=== PATIENT | male | born 1975 | race Caucasian/White ===

== ENCOUNTER 2016-07-15 02:41 | Observation (INO) | payer OTHER ==
[2016-07-15 02:52] VITALS: TEMP 98.1
[2016-07-15] MEDS ORDERED: NITROGLYCERIN SL TABS 0.4 MG TAB SUBLINGUAL STA (03:12)
[2016-07-15] MEDS ORDERED: ASPIRIN 81 MG CHEW PO STA (03:12)
--- NOTE | 2016-07-15 03:14 | ED ---
General Adult HPI - General Source: patient, RN notes reviewed Mode of arrival: ambulatory Limitations: no limitations <Demi Louie - Last Filed: 07/15/16 05:14> <Geovany Reeder - Last Filed: 07/15/16 05:34> - General Chief complaint: Upper Respiratory Infection Stated complaint: migraine, cough, heather, ent Time Seen by Provider: 07/15/16 03:02 - History of Present Illness Initial comments: Patient is a 41-year-old male presenting to the emergency room with chief complaint of upper respiratory symptoms including chest discomfort, headache, sore throat, and cough for approximately one week. Patient reports that he currently has a heavy numbness to his chest pain. He denies any pain radiating down the arms or in the shoulders. He denies any numbness and tingling to the extremities. Patient denies any diaphoresis or nausea. Patient reports he was seen in urgent care clinic and was given a chest x-ray which was reviewed to be normal and was placed on steroids and cough medicine. Patient was off work for the past 2 days due to these upper respiratory symptoms and when he returned to work today he was unable to go walk long distances because he has had this continuous chest pain and shortness of breath. She reports that the chest pain is worse with coughing. He states that the cough has been nonproductive. He states that he has not taken any decongestants. He reports his only taken Motrin and Tylenol for pain as well as the prescribed cough medicine and steroids. He states he is a nonsmoker. He does have a positive family history for heart disease. He does report he has high blood pressure but denies any diabetes. He states that he has been worked up in the past for coronary artery disease and had a negative stress test. He does not know exactly when this was completed. Patient denies any recent back pain, abdominal pain, nausea vomiting , numbness or tingling, dysuria or hematuria, constipation or diarrhea, headaches or visual changes, or any other current symptoms (Demi Louie) - Related Data Home Medications Medication Instructions Recorded Confirmed Cetirizine HCl [Zyrtec] 10 mg PO DAILY 05/20/14 07/15/16 QUEtiapine FUMARATE [SEROquel] 300 mg PO HS 05/20/14 07/15/16 Divalproex ER [Depakote ER] 1,500 mg PO HS 03/15/16 07/15/16 Lisinopril-Hctz 20-12.5 mg 1 tab PO BID 03/15/16 07/15/16 [Zestoretic 20-12.5] Losartan/Hydrochlorothiazide 1 tab PO DAILY 03/15/16 07/15/16 [Hyzaar 100-25 Tablet] Metoprolol Succinate [Toprol XL] 50 mg PO DAILY 03/15/16 07/15/16 amLODIPine [Norvasc] 5 mg PO DAILY 03/15/16 07/15/16 Allergies Allergy/AdvReac Type Severity Reaction Status Date / Time hydromorphone [From Dilaudid] AdvReac Nausea & Verified 07/15/16 02:53 Vomiting Review of Systems ROS Other: All systems not noted in ROS Statement are negative. <Demi Louie - Last Filed: 07/15/16 05:14> ROS Other: All systems not noted in ROS Statement are negative. <Geovany Reeder - Last Filed: 07/15/16 05:34> ROS Statement: Those systems with pertinent positive or pertinent negative responses have been documented in the HPI. Past Medical History Past Medical History: Coronary Artery Disease (CAD), Hypertension History of Any Multi-Drug Resistant Organisms: None Reported Past Surgical History: Heart Catheterization Past Psychological History: Anxiety, Depression Smoking Status: Never smoker Past Alcohol Use History: Rare Past Drug Use History: None Reported <Demi Louie - Last Filed: 07/15/16 05:14> General Exam Limitations: no limitations General appearance: alert, in no apparent distress Head exam: Present: atraumatic, normocephalic, normal inspection Eye exam: Present: normal appearance, PERRL, EOMI. Absent: scleral icterus, conjunctival injection, periorbital swelling ENT exam: Present: normal exam, mucous membranes moist Neck exam: Present: normal inspection. Absent: tenderness, meningismus, lymphadenopathy Respiratory exam: Present: normal lung sounds bilaterally. Absent: respiratory distress, wheezes, rales, rhonchi, stridor Cardiovascular Exam: Present: regular rate, normal rhythm, normal heart sounds. Absent: systolic murmur, diastolic murmur, rubs, gallop, clicks GI/Abdominal exam: Present: soft, normal bowel sounds. Absent: distended, tenderness, guarding, rebound, rigid Extremities exam: Present: normal inspection, full ROM, normal capillary refill. Absent: tenderness, pedal edema, joint swelling, calf tenderness Back exam: Present: normal inspection Neurological exam: Present: alert, oriented X3, CN II-XII intact Psychiatric exam: Present: normal affect, normal mood Skin exam: Present: warm, dry, intact, normal color. Absent: rash <Demi Louie - Last Filed: 07/15/16 05:14> <Geovany Reeder - Last Filed: 07/15/16 05:34> - General Exam Comments Initial Comments: Patient is a ill appearing 41-year-old male. He does appear to be in moderate discomfort. (Demi Louie) EKG Findings - EKG Comments: EKG Findings:: Patient's EKG shows normal sinus rhythm. Ventricular rate 93 bpm.. Interval 140 ms. Frustration a 6 seconds. QT/QTc is 364/452 ms. No evidence of ST elevation or T-wave inversion. No evidence of ST depression. No evidence of atrial or ventricular arrhythmias. There is no EKG to compare in his history. <Demi Louie - Last Filed: 07/15/16 05:14> Medical Decision Making - Lab Data Result diagrams: 07/15/16 03:15 07/15/16 03:15 <Demi Louie - Last Filed: 07/15/16 05:14> - Lab Data Result diagrams: 07/15/16 03:15 07/15/16 03:15 <Geovany Reeder - Last Filed: 07/15/16 05:34> - Medical Decision Making Patient is a 41-year-old male with chief complaint of one week of chest pain, cough, sinus congestion and sore throat. Patient reports that the chest pain feels like a heaviness. He also reports these been short of breath and has been worse over the past day. Patient was given IV fluids and initial lab work was obtained including cardiac enzymes. Normal initial EKG was reviewed to be normal. Patient does have leukocytosis of 15.6. Patient was given by mouth nitro and aspirin given the chest pain. Patient is a nonsmoker but does have a family history of heart disease. At 4 AM care of patient was transferred over to Dr. Reeder. (Demi Louie) Patient's chest x-ray showed no acute abnormality. Patient stated the nitroglycerin seemed to help with his chest discomfort. Patient's white count was elevated but was probably secondary to steroid she's been using which she got at a urgent care. I spoke with Dr. Orozco admitted the patient I consult cardiology (Geovany Reeder) - Lab Data Lab Results 07/15/16 07/15/16 07/15/16 Range/Units 03:15 03:15 03:15 WBC 15.7 H (3.8-10.6) k/uL RBC 5.04 (4.30-5.90) m/uL Hgb 14.7 (13.0-17.5) gm/dL Hct 43.1 (39.0-53.0) % MCV 85.5 (80.0-100.0) fL MCH 29.1 (25.0-35.0) pg MCHC 34.0 (31.0-37.0) g/dL RDW 13.5 (11.5-15.5) % Plt Count 260 (150-450) k/uL Neutrophils % 81 % Lymphocytes % 13 % Monocytes % 5 % Eosinophils % 1 % Basophils % 0 % Neutrophils # 12.7 H (1.3-7.7) k/uL Lymphocytes # 2.0 (1.0-4.8) k/uL Monocytes # 0.7 (0-1.0) k/uL Eosinophils # 0.1 (0-0.7) k/uL Basophils # 0.0 (0-0.2) k/uL PT (9.0-12.0) sec INR (<1.1) APTT (22.0-30.0) sec Sodium 144 (137-145) mmol/L Potassium 3.7 (3.5-5.1) mmol/L Chloride 103 (98-107) mmol/L Carbon Dioxide 29 (22-30) mmol/L Anion Gap 12 mmol/L BUN 25 H (9-20) mg/dL Creatinine 0.89 (0.66-1.25) mg/dL Est GFR (MDRD) Af Amer >60 (>60 ml/min/1.73 sqM) Est GFR (MDRD) Non-Af >60 (>60 ml/min/1.73 sqM) Glucose 158 H (74-99) mg/dL Calcium 9.3 (8.4-10.2) mg/dL Magnesium 2.0 (1.6-2.3) mg/dL Total Bilirubin 0.4 (0.2-1.3) mg/dL AST 32 (17-59) U/L ALT 52 (21-72) U/L Alkaline Phosphatase 81 (38-126) U/L Total Creatine Kinase 192 H (55-170) U/L CK-MB (CK-2) 3.8 H* (0.0-2.4) ng/mL CK-MB (CK-2) Rel Index 2.0 Troponin I <0.012 (0.000-0.034) ng/mL Total Protein 7.3 (6.3-8.2) g/dL Albumin 4.0 (3.5-5.0) g/dL 07/15/16 Range/Units 03:15 WBC (3.8-10.6) k/uL RBC (4.30-5.90) m/uL Hgb (13.0-17.5) gm/dL Hct (39.0-53.0) % MCV (80.0-100.0) fL MCH (25.0-35.0) pg MCHC (31.0-37.0) g/dL RDW (11.5-15.5) % Plt Count (150-450) k/uL Neutrophils % % Lymphocytes % % Monocytes % % Eosinophils % % Basophils % % Neutrophils # (1.3-7.7) k/uL Lymphocytes # (1.0-4.8) k/uL Monocytes # (0-1.0) k/uL Eosinophils # (0-0.7) k/uL Basophils # (0-0.2) k/uL PT 10.6 (9.0-12.0) sec INR 1.1 (<1.1) APTT 27.1 (22.0-30.0) sec Sodium (137-145) mmol/L Potassium (3.5-5.1) mmol/L Chloride (98-107) mmol/L Carbon Dioxide (22-30) mmol/L Anion Gap mmol/L BUN (9-20) mg/dL Creatinine (0.66-1.25) mg/dL Est GFR (MDRD) Af Amer (>60 ml/min/1.73 sqM) Est GFR (MDRD) Non-Af (>60 ml/min/1.73 sqM) Glucose (74-99) mg/dL Calcium (8.4-10.2) mg/dL Magnesium (1.6-2.3) mg/dL Total Bilirubin (0.2-1.3) mg/dL AST (17-59) U/L ALT (21-72) U/L Alkaline Phosphatase (38-126) U/L Total Creatine Kinase (55-170) U/L CK-MB (CK-2) (0.0-2.4) ng/mL CK-MB (CK-2) Rel Index Troponin I (0.000-0.034) ng/mL Total Protein (6.3-8.2) g/dL Albumin (3.5-5.0) g/dL Disposition <Demi Louie - Last Filed: 07/15/16 05:14> Time of Disposition: 05:34 <Geovany Reeder - Last Filed: 07/15/16 05:34> Clinical Impression: Chest pain Disposition: ADMITTED IP TO THIS HOSP
[2016-07-15 03:32] LABS: Basophils % (A) 0 %; CH 29.5; CHCM 34.7; Eosinophils # (A) 0.1 k/uL (0-0.7); Eosinophils % (A) 1 %; HCT 43.1 % (39.0-53.0); HDW 3.31; HGB 14.7 gm/dL (13.0-17.5); Luc # (Auto) 0.12; Luc % (Auto) 1; Lymphocytes % (A) 13 %; MCH 29.1 pg (25.0-35.0); MCV 85.5 fL (80.0-100.0); Mean Platelet Volume 7.2; Monocytes # (A) 0.7 k/uL (0-1.0); Monocytes % (A) 5 %; Neutrophils # (A) 12.7 k/uL (1.3-7.7); Neutrophils % (A) 81 %; RBC 5.04 m/uL (4.30-5.90); RDW 13.5 % (11.5-15.5); WBC 15.7 k/uL (3.8-10.6); WBC (Perox) 15.99
[2016-07-15 03:37] LABS: ALT 52 U/L (21-72); AST 32 U/L (17-59); Alkaline Phosphatase 81 U/L (38-126); Anion Gap 12 mmol/L; Blood Urea Nitrogen 25 mg/dL (9-20); Calcium 9.3 mg/dL (8.4-10.2); Carbon Dioxide 29 mmol/L (22-30); Chloride 103 mmol/L (98-107); Glucose 158 mg/dL (74-99); Non-African American GFR(MDRD) >60 (>60 ml/min/1.73 sqM); Sodium 144 mmol/L (137-145); Total Bilirubin 0.4 mg/dL (0.2-1.3); Total Protein 7.3 g/dL (6.3-8.2)
[2016-07-15 03:42] LABS: Potassium 3.7 mmol/L (3.5-5.1)
[2016-07-15 03:45] LABS: INR 1.1 (<1.1); Partial Thromboplastin Time 27.1 sec (22.0-30.0); Prothrombin Time 10.6 sec (9.0-12.0)
[2016-07-15 03:52] LABS: Creatine Kinase 192 U/L (55-170)
[2016-07-15] MEDS ORDERED: KETOROLAC 30 MG/ML 1 ML VIAL IVP STA (03:53)
[2016-07-15 04:05] LABS: Troponin I <0.012 ng/mL (0.000-0.034)
[2016-07-15 04:09] LABS: Creatine Kinase MB 3.8 ng/mL (0.0-2.4)
--- NOTE | 2016-07-15 05:11 | XR ---
EXAMINATION TYPE: XR chest 2V DATE OF EXAM: 07/15/2016 4:10 AM COMPARISON: 11/07/2011 HISTORY: History of CAD heart catheterization, asthma and chest pain TECHNIQUE: Frontal and lateral views of the chest are obtained. FINDINGS: There is no focal air space opacity, pleural effusion, or pneumothorax seen. The cardiac silhouette size is within normal limits. The osseous structures are intact. IMPRESSION: No acute cardiopulmonary process. No significant interval change.
[2016-07-15] MEDS ORDERED: IPRATROPIUM-ALBUTEROL 3 ML NEB INHALATION STA (05:33)
[2016-07-15] MEDS ORDERED: NITROGLYCERIN SL TABS 0.4 MG TAB SUBLINGUAL PRN (05:34)
[2016-07-15 06:18] VITALS: BMI 45.1
[2016-07-15 06:22] VITALS: RESP 18
[2016-07-15] MEDS: SODIUM CHLORIDE 0.9% 1,000 ML IV SCH ×2 (06:22→15:30)
[2016-07-15] MEDS: NITROGLYCERIN OINT 1 INCH/GM PACKET TOPICAL SCH ×2 (06:23→11:30)
[2016-07-15] MEDS ORDERED: MORPHINE SULFATE 2 MG/ML SYRINGE IVP PRN (07:05)
[2016-07-15] MEDS ORDERED: HYDROcodone/APAP 5-325MG 1 EACH TAB PO PRN (07:05)
[2016-07-15] MEDS ORDERED: METOPROLOL SUCCINATE (ER) 50 MG TAB.ER.24H PO SCH (09:00)
[2016-07-15] MEDS ORDERED: LORATADINE 10 MG TAB PO SCH (09:00)
[2016-07-15] MEDS ORDERED: amLODIPine 5 MG TAB PO SCH (09:00)
[2016-07-15] MEDS ORDERED: LISINOPRIL-HCTZ 20-12.5 MG 1 EACH TAB PO SCH (09:00)
[2016-07-15] MEDS ORDERED: LOSARTAN-HCTZ 50-12.5 MG 1 EACH TAB PO SCH ×2 (09:00)
--- NOTE | 2016-07-15 09:54 | P.CRDCN ---
History of Present Illness Consult date: 07/15/16 Chief complaint: Chest pain History of present illness: This is a pleasant 41-year-old gentleman with obesity, borderline diabetes, hypertension, presented to the emergency room complaining of chest discomfort. He has been struggling with an upper respiratory symptoms and cough for the last several weeks. He presented the urgent care twice and he was started on medications without any improvement. Then he was referred to go to the emergency room. He describes dry cough without any fever or chills. Beside that he describes chest discomfort, on the upper part of the chest, as a sharp kind of discomfort , without any radiation to the arm or neck or shoulders and without any associated symptoms. The chest x-ray showed chronic changes. The EKG showed sinus mechanism without any significant changes. He underwent one set of cardiac enzymes came to be unremarkable. We are still waiting for the second set of serial cardiac enzymes. Please note that the patient underwent heart catheterization about 6 years ago and that was unremarkable. Past Medical History Past Medical History: Coronary Artery Disease (CAD), Diabetes Mellitus, GERD/ Reflux, Hyperlipidemia, Hypertension, Osteoarthritis (OA), Pneumonia, Sleep Apnea/CPAP/BIPAP Additional Past Medical History / Comment(s): Carpel tunnel bilat History of Any Multi-Drug Resistant Organisms: None Reported Past Surgical History: Heart Catheterization, Tonsillectomy Additional Past Surgical History / Comment(s): cardiac cath approx. 2012, stress test x2, colonoscopy with EGD Past Anesthesia/Blood Transfusion Reactions: No Reported Reaction Past Psychological History: Anxiety, Depression Smoking Status: Never smoker Past Alcohol Use History: Rare Past Drug Use History: None Reported - Past Family History Mother Family Medical History: Cancer Additional Family Medical History / Comment(s): lymphoma Father Family Medical History: Hypertension Medications and Allergies Home Medications Medication Instructions Recorded Confirmed Type Cetirizine HCl [Zyrtec] 10 mg PO DAILY 05/20/14 07/15/16 History QUEtiapine FUMARATE [SEROquel] 300 mg PO HS 05/20/14 07/15/16 History Divalproex ER [Depakote ER] 1,500 mg PO HS 03/15/16 07/15/16 History Lisinopril-Hctz 20-12.5 mg 1 tab PO BID 03/15/16 07/15/16 History [Zestoretic 20-12.5] Losartan/Hydrochlorothiazide 1 tab PO DAILY 03/15/16 07/15/16 History [Hyzaar 100-25 Tablet] Metoprolol Succinate [Toprol XL] 50 mg PO DAILY 03/15/16 07/15/16 History amLODIPine [Norvasc] 5 mg PO DAILY 03/15/16 07/15/16 History Allergies Allergy/AdvReac Type Severity Reaction Status Date / Time ketorolac [From Toradol] AdvReac Nausea Verified 07/15/16 06:01 Physical Exam Vitals: Vital Signs Pulse Resp BP Pulse Ox 07/15/16 06:15 18 07/15/16 05:46 97 16 134/77 97 07/15/16 05:43 108 H 07/15/16 05:37 102 H Intake and Output 07/14/16 07/15/16 07/15/16 22:59 06:59 14:59 Other: Voiding Method Toilet # Voids 1 Weight 151.046 kg - Constitutional General appearance: no acute distress - Respiratory Respiratory: bilateral: CTA - Cardiovascular Rhythm: regular Heart sounds: normal: S1, S2 Results 07/15/16 03:15 07/15/16 03:15 Current Medications Generic Name Dose Route Start Last Admin Trade Name Freq PRN Reason Stop Dose Admin Acetaminophen/Hydrocodone Bitart 1 each 07/15/16 07:05 [place] 5-325 PO Q4HR PRN Pain Amlodipine Besylate 5 mg 07/15/16 09:00 Norvasc PO DAILY KENNETH Aspirin 325 mg 07/16/16 09:00 Aspirin PO DAILY [facility] Divalproex Sodium 1,500 mg 07/15/16 21:00 Depakote Er PO HS [facility] Lisinopril/HCTZ 1 each 07/15/16 09:00 Zestoretic 20-12.5 PO BID KENNETH Sodium Chloride 1,000 mls @ 100 mls/hr 07/15/16 04:00 07/15/16 06:22 Saline 0.9% IV Not Given .Q10H KENNETH Loratadine 10 mg 07/15/16 09:00 Claritin PO DAILY [facility]NET[facility] Metoprolol Succinate 50 mg 07/15/16 09:00 Toprol Xl PO DAILY [facility]ENNET[facility] Morphine Sulfate 2 mg 07/15/16 07:05 07/15/16 07:29 Morphine Sulfate (Inj) IVP 2 mg Q4H PRN Administration Pain/Discomfort Nitroglycerin 1 inch 07/15/16 06:00 07/15/16 06:23 Nitro-Bid Oint TOPICAL Not Given Q6HR KENNETH Nitroglycerin 0.4 mg 07/15/16 05:34 Nitrostat SUBLINGUAL Q5M PRN Chest Pain Quetiapine Fumarate 300 mg 07/15/16 21:00 Seroquel PO HS [facility]ENNET[facility] Intake and Output 07/14/16 07/15/16 07/15/16 22:59 06:59 14:59 Other: Voiding Method Toilet # Voids 1 Weight 151.046 kg Assessment and Plan Plan: Assessment #1 dry cough #2 atypical chest discomfort #3 obesity #4 borderline diabetes #5 hypertension Plan #1 we'll wait for the second set of serial cardiac enzymes #2 meanwhile I'll get the patient up and around #3 if the second set of enzymes came in to be unremarkable the patient need to have a stress test either as inpatient or outpatient #4 we'll continue following up with him
[2016-07-15 11:04] VITALS: BP 144/96; PULSE 85
[2016-07-15 11:18] LABS: Creatine Kinase 140 U/L (55-170)
[2016-07-15 11:23] LABS: Hemoglobin A1C 5.5 % (4.2-6.1)
[2016-07-15 11:32] LABS: Troponin I <0.012 ng/mL (0.000-0.034)
[2016-07-15 11:42] LABS: Creatine Kinase MB 2.8 ng/mL (0.0-2.4)
[2016-07-15] MEDS ORDERED: QUEtiapine 100 MG TAB PO SCH (21:00)
[2016-07-15] MEDS ORDERED: DIVALPROEX ER 500 MG TAB.ER.24H PO SCH (21:00)
[2016-07-16] MEDS ORDERED: ASPIRIN 325 MG TAB PO SCH (09:00)
--- NOTE | 2016-07-16 11:13 | HP ---
DATE OF ADMISSION: 07/15/2016 HISTORY AND PHYSICAL/DISCHARGE SUMMARY: Patient is a 41 -year-old obese gentleman who came in through the Emergency Room Department with complaints of chest discomfort on the left side of the chest, constant chest pain about 7 by 10 in severity and the patient has URI like symptoms with coughing, has a dry cough. Patient was seen in urgent care. Gave him antibiotics which he does not take ( ) but appears to be azithromycin. His symptoms of cough ( ) at this point of time ( ) at this point of time, the patient appears to have ( ), chest pain, nonpleuritic in nature, not associated with food. Denied any diaphoresis. Denied any lightheadedness. Chest pain is constant. The patient was evaluated by radiology. ( ) sets of Troponin ( ) were obtained. ( ) essentially negative. The patient is cleared for discharged. The patient will be discharged today. Because of risk factors, the patient was requested to come back for an outpatient stress test. Chest x-ray did not show any pneumonic process. Patient denied any had flulike symptoms or fever. REVIEW OF SYSTEMS: CONSTITUTIONAL: No fever, no malaise, no fatigue. HEENT: No recent visual problems or hearing problems. Denied any sore throat. CARDIOVASCULAR: As mentioned earlier. PULMONARY: As mentioned earlier. GASTROINTESTINAL: No diarrhea, no nausea, no vomiting, no abdominal pain. Normoactive bowel sounds. NEUROLOGICAL: No headaches, no weakness, no numbness. HEMATOLOGICAL: Denies any bleeding or petechiae. GENITOURINARY: Denies any burning micturition, frequency, or urgency. MUSCULOSKELETAL/RHEUMATOLOGICAL: Denies any joint pain, swelling, or any muscle pain. ENDOCRINE: Denies any polyuria or polydipsia. The rest of the 14 point review of systems is negative. Past medical history is coronary artery disease, diabetes mellitus , gastroesophageal reflux disease, hypertension, osteoarthritis, pneumonia, sleep apnea, uses CPAP machine. Cardiac catheterization in the past. ( ). Anxiety, depression. SOCIAL HISTORY: Denies any smoking, alcohol abuse or any drug. FAMILY HISTORY: Mother had lymphoma and father has hypertension. Home medications include: 1. ( ). 2. Seroquel. 3. Depakote. 4. Lisinopril. 5. Hydrochlorothiazide. 6. Metoprolol. 7. Amlodipine. ALLERGIES: ( ). PHYSICAL EXAMINATION: VITAL SIGNS: Temperature afebrile. Pulse of 97, respiratory rate 18. Blood pressure is 134/77, saturating at 97% on room air. GENERAL: The patient is alert and oriented x3, not in any acute distress. Well developed, well nourished. HEENT: Pupils are round and equally reacting to light. EOMI. No scleral icterus. No conjunctival pallor. Normocephalic, atraumatic. No pharyngeal erythema. No thyromegaly. CARDIOVASCULAR: S1 and S2 present. No murmurs, rubs, or gallops. PULMONARY: Chest is clear to auscultation, no wheezing or crackles. ABDOMEN: Soft, nontender, nondistended, normoactive bowel sounds. No palpable organomegaly. MUSCULOSKELETAL: No joint swelling or deformity. EXTREMITIES: No cyanosis, clubbing, or pedal edema. NEUROLOGICAL: Gross neurological examination did not reveal any focal deficits. SKIN: No rashes. LABORATORY DATA: CBC and BMP are abnormal for mildly elevated BUN of 25. EKG, troponins as mentioned above. Chest x-ray as mentioned earlier. ASSESSMENT AND PLAN: 1. Chest pain, appears to be atypical, patient is ( ) unstable angina ( ) ruled out and the patient will get an outpatient stress test. 2. Obesity, counselling was provided ( ). 3. History of ( ) antibiotics, the patient actually I believe his VRE symptoms are allergic in nature. I do not believe the patient will benefit from antibiotics. Although his cough ( ) is actually improved. 4. Hypertension. 5. Diabetes mellitus. 6. Hypertension. 7. Sleep apnea. For the above mentioned chronic medical problems, he can continue his home medications. This dictation is both H&P and discharge summary. Patient will be discharged today. Follow with Dr. Elliott as an outpatient in about 3 to 7 days. Activity as tolerated. Cardiac and diabetic 1800 calorie diet.
== END 2016-07-15 15:30 | disposition home or self-care (01) ==
LOC: EC 02:41 → 3OBS 05:34
PROVIDERS: ADMIT Hospitalist; ATTEND Hospitalist
DX: R07.89 Other chest pain (principal); E66.9 Obesity, unspecified; R05 Cough; I10 Essential (primary) hypertension; E11.9 Type 2 diabetes mellitus without complications; G47.30 Sleep apnea, unspecified; I25.10 Atherosclerotic heart disease of native coronary artery without angina pectoris; F32.9 Major depressive disorder, single episode, unspecified; F41.9 Anxiety disorder, unspecified; K21.9 Gastro-esophageal reflux disease without esophagitis; E78.5 Hyperlipidemia, unspecified; M19.90 Unspecified osteoarthritis, unspecified site; Z99.89 Dependence on other enabling machines and devices; Z68.42 Body mass index [BMI] 45.0-49.9, adult; Z79.899 Other long term (current) drug therapy; Z82.49 Family history of ischemic heart disease and other diseases of the circulatory system; Z80.7 Family history of other malignant neoplasms of lymphoid, hematopoietic and related tissues
CPT/HCPCS: 99284; 96374; 36415; 94640; 93005; 80053; 83036; 82550; 82553; 83735; 84484; 85025; 85610; 85730; 71020; G0378; J1885; J2270; 96375

== ENCOUNTER 2016-09-01 02:15 | Observation (INO) | payer OTHER ==
[2016-09-01] MEDS ORDERED: ASPIRIN 81 MG CHEW PO STA (02:36)
[2016-09-01] MEDS ORDERED: NITROGLYCERIN OINT 1 INCH/GM PACKET TOPICAL STA (02:36)
[2016-09-01] MEDS ORDERED: NITROGLYCERIN SL TABS 0.4 MG TAB SUBLINGUAL STA (02:39)
[2016-09-01] MEDS ORDERED: LORazepam 2 MG/ML SYRINGE IV STA (02:39)
--- NOTE | 2016-09-01 02:39 | ED ---
General Adult HPI - General Chief complaint: Chest Pain Stated complaint: chest pain Time Seen by Provider: 09/01/16 02:30 Source: patient, EMS, RN notes reviewed Mode of arrival: EMS - History of Present Illness Initial comments: This is a 41-year-old male who presents to the emergency department complaining of chest pressure. Patient states he was at work and the pressure continued to get worse and he became short of breath as well. Patient denies any diaphoresis. Patient denies any nausea vomiting. Patient states this happened a little while ago when he went to the hospital he was admitted overnight was told to follow-up as an outpatient for stress test but he states he never did. Patient denies any smoking history. Patient has hypertension and has coronary artery disease. Patient denies any recent fever chills or cough. Patient states he has a mild headache. - Related Data Home Medications Medication Instructions Recorded Confirmed Cetirizine HCl [Zyrtec] 10 mg PO DAILY 05/20/14 07/15/16 QUEtiapine FUMARATE [SEROquel] 300 mg PO HS 05/20/14 07/15/16 Divalproex ER [Depakote ER] 1,500 mg PO HS 03/15/16 07/15/16 Lisinopril-Hctz 20-12.5 mg 1 tab PO BID 03/15/16 07/15/16 [Zestoretic 20-12.5] Losartan/Hydrochlorothiazide 1 tab PO DAILY 03/15/16 07/15/16 [Hyzaar 100-25 Tablet] Metoprolol Succinate [Toprol XL] 50 mg PO DAILY 03/15/16 07/15/16 amLODIPine [Norvasc] 5 mg PO DAILY 03/15/16 07/15/16 Allergies Allergy/AdvReac Type Severity Reaction Status Date / Time ketorolac [From Toradol] AdvReac Nausea Verified 07/15/16 11:36 Review of Systems ROS Statement: Those systems with pertinent positive or pertinent negative responses have been documented in the HPI. ROS Other: All systems not noted in ROS Statement are negative. Past Medical History Past Medical History: Coronary Artery Disease (CAD), Diabetes Mellitus, GERD/ Reflux, Hyperlipidemia, Hypertension, Osteoarthritis (OA), Pneumonia, Sleep Apnea/CPAP/BIPAP Additional Past Medical History / Comment(s): Carpel tunnel bilat History of Any Multi-Drug Resistant Organisms: None Reported Past Surgical History: Heart Catheterization, Tonsillectomy Additional Past Surgical History / Comment(s): cardiac cath approx. 2012, stress test x2, colonoscopy with EGD Past Anesthesia/Blood Transfusion Reactions: No Reported Reaction Past Psychological History: Anxiety, Depression Smoking Status: Never smoker Past Alcohol Use History: Rare Past Drug Use History: None Reported - Past Family History Mother Family Medical History: Cancer Additional Family Medical History / Comment(s): lymphoma Father Family Medical History: Hypertension General Exam - General Exam Comments Initial Comments: GENERAL: Patient is well-developed and well-nourished. Patient is nontoxic and well- hydrated and is in mild distress. ENT: Neck is soft and supple. No significant lymphadenopathy is noted. Oropharynx is clear. Moist mucous membranes. Neck has full range of motion without eliciting any pain. EYES: The sclera were anicteric and conjunctiva were pink and moist. Extraocular movements were intact and pupils were equal round and reactive to light. Eyelids were unremarkable. PULMONARY: Unlabored respirations. Good breath sounds bilaterally. No audible rales rhonchi or wheezing was noted. CARDIOVASCULAR: There is a regular rate and rhythm without any murmurs gallops or rubs. ABDOMEN: Soft and nontender with normal bowel sounds. No palpable organomegaly was noted. There is no palpable pulsatile mass. SKIN: Skin is clear with no lesions or rashes and otherwise unremarkable. NEUROLOGIC: Patient is alert and oriented x3. Cranial nerves II through XII are grossly intact. Motor and sensory are also intact. Normal speech, volume and content. Symmetrical smile. MUSCULOSKELETAL: Normal extremities with adequate strength and full range of motion. No lower extremity swelling or edema. No calf tenderness. LYMPHATICS: No significant lymphadenopathy is noted PSYCHIATRIC: Normal psychiatric evaluation. Normal interpersonal interactions appears functionally intact in deals appropriately with others. No signs of depression. Mild anxiety Course Vital Signs 09/01/16 09/01/16 09/01/16 02:31 02:49 03:19 Temperature 98.5 F Pulse Rate 88 86 84 Respiratory 20 20 20 Rate Blood Pressure 136/71 141/79 131/74 O2 Sat by Pulse 90 L 92 L 92 L Oximetry Medical Decision Making - Medical Decision Making EKG shows normal sinus rhythm at 92 bpm AK interval is 166 dresses 104 QT interval 372 QTC is 460. Patient's EKG shows no ST segment elevation or depression or T-wave abdomen is noted. I compared to an old EKG showed no acute EKG changes. Chest x-ray shows no acute abnormality. I gave the patient nitroglycerin it seemed to help his pain patient was sleeping shortly thereafter. I started the patient on heparin because of his previous coronary artery disease his clinical presentation and the relief with nitro. I spoke with Dr. Pat agreed to admit the patient admitted the patient I consult cardiology I continued nitro glycerin aspirin and heparin on the floor I wrote admitting orders - Lab Data Result diagrams: 09/01/16 02:46 09/01/16 02:46 Lab Results 09/01/16 09/01/16 09/01/16 Range/Units 02:46 02:46 02:46 WBC 8.6 (3.8-10.6) k/uL RBC 4.86 (4.30-5.90) m/uL Hgb 13.6 (13.0-17.5) gm/dL Hct 41.1 (39.0-53.0) % MCV 84.6 (80.0-100.0) fL MCH 27.9 (25.0-35.0) pg MCHC 33.0 (31.0-37.0) g/dL RDW 14.1 (11.5-15.5) % Plt Count 191 (150-450) k/uL Neutrophils % 69 % Lymphocytes % 19 % Monocytes % 6 % Eosinophils % 3 % Basophils % 1 % Neutrophils # 5.9 (1.3-7.7) k/uL Lymphocytes # 1.6 (1.0-4.8) k/uL Monocytes # 0.5 (0-1.0) k/uL Eosinophils # 0.3 (0-0.7) k/uL Basophils # 0.0 (0-0.2) k/uL PT (9.0-12.0) sec INR (<1.1) APTT (22.0-30.0) sec Sodium 140 (137-145) mmol/L Potassium 3.4 L (3.5-5.1) mmol/L Chloride 103 (98-107) mmol/L Carbon Dioxide 27 (22-30) mmol/L Anion Gap 10 mmol/L BUN 16 (9-20) mg/dL Creatinine 0.80 (0.66-1.25) mg/dL Est GFR (MDRD) Af Amer >60 (>60 ml/min/1.73 sqM) Est GFR (MDRD) Non-Af >60 (>60 ml/min/1.73 sqM) Glucose 166 H (74-99) mg/dL Calcium 8.0 L (8.4-10.2) mg/dL Magnesium 2.0 (1.6-2.3) mg/dL Total Bilirubin 0.5 (0.2-1.3) mg/dL AST 46 (17-59) U/L ALT 40 (21-72) U/L Alkaline Phosphatase 64 (38-126) U/L Total Creatine Kinase 777 H (55-170) U/L CK-MB (CK-2) 5.2 H* (0.0-2.4) ng/mL CK-MB (CK-2) Rel Index 0.7 Troponin I <0.012 (0.000-0.034) ng/mL Total Protein 6.8 (6.3-8.2) g/dL Albumin 3.6 (3.5-5.0) g/dL 09/01/16 Range/Units 02:46 WBC (3.8-10.6) k/uL RBC (4.30-5.90) m/uL Hgb (13.0-17.5) gm/dL Hct (39.0-53.0) % MCV (80.0-100.0) fL MCH (25.0-35.0) pg MCHC (31.0-37.0) g/dL RDW (11.5-15.5) % Plt Count (150-450) k/uL Neutrophils % % Lymphocytes % % Monocytes % % Eosinophils % % Basophils % % Neutrophils # (1.3-7.7) k/uL Lymphocytes # (1.0-4.8) k/uL Monocytes # (0-1.0) k/uL Eosinophils # (0-0.7) k/uL Basophils # (0-0.2) k/uL PT 11.0 (9.0-12.0) sec INR 1.1 (<1.1) APTT 27.8 (22.0-30.0) sec Sodium (137-145) mmol/L Potassium (3.5-5.1) mmol/L Chloride (98-107) mmol/L Carbon Dioxide (22-30) mmol/L Anion Gap mmol/L BUN (9-20) mg/dL Creatinine (0.66-1.25) mg/dL Est GFR (MDRD) Af Amer (>60 ml/min/1.73 sqM) Est GFR (MDRD) Non-Af (>60 ml/min/1.73 sqM) Glucose (74-99) mg/dL Calcium (8.4-10.2) mg/dL Magnesium (1.6-2.3) mg/dL Total Bilirubin (0.2-1.3) mg/dL AST (17-59) U/L ALT (21-72) U/L Alkaline Phosphatase (38-126) U/L Total Creatine Kinase (55-170) U/L CK-MB (CK-2) (0.0-2.4) ng/mL CK-MB (CK-2) Rel Index Troponin I (0.000-0.034) ng/mL Total Protein (6.3-8.2) g/dL Albumin (3.5-5.0) g/dL Critical Care Time Critical Care Time: Yes Total Critical Care Time: 35 Disposition Clinical Impression: Unstable angina pectoris Disposition: ADMITTED IP TO THIS HOSP Referrals: Marco Alarcon MD [Primary Care Provider] - 1-2 days Time of Disposition: 04:03
--- NOTE | 2016-09-01 03:10 | XR ---
EXAM: XR Chest, 2 Views. CLINICAL HISTORY: Reason: Chest Pain TECHNIQUE: Frontal and lateral views of the chest. COMPARISON: 07/15/16 two-view chest. FINDINGS: Lungs: The lungs are stable without new focal infiltrate. Pleural spaces: Pleural spaces are clear without effusion or pneumothorax. Heart: The cardiomediastinal silhouette is stable. Mediastinum: See above. Bones: The bones are stable. No acute fracture. IMPRESSION: No acute findings.
[2016-09-01 03:16] LABS: Basophils % (A) 1 %; CH 29.3; CHCM 34.7; Eosinophils # (A) 0.3 k/uL (0-0.7); Eosinophils % (A) 3 %; HCT 41.1 % (39.0-53.0); HDW 3.21; HGB 13.6 gm/dL (13.0-17.5); Luc # (Auto) 0.15; Luc % (Auto) 2; Lymphocytes # (A) 1.6 k/uL (1.0-4.8); Lymphocytes % (A) 19 %; MCH 27.9 pg (25.0-35.0); MCV 84.6 fL (80.0-100.0); Mean Platelet Volume 6.9; Monocytes # (A) 0.5 k/uL (0-1.0); Monocytes % (A) 6 %; Neutrophils # (A) 5.9 k/uL (1.3-7.7); Neutrophils % (A) 69 %; RBC 4.86 m/uL (4.30-5.90); RDW 14.1 % (11.5-15.5); WBC 8.6 k/uL (3.8-10.6); WBC (Perox) 8.76
[2016-09-01 03:22] LABS: ALT 40 U/L (21-72); AST 46 U/L (17-59); Alkaline Phosphatase 64 U/L (38-126); Anion Gap 10 mmol/L; Blood Urea Nitrogen 16 mg/dL (9-20); Carbon Dioxide 27 mmol/L (22-30); Chloride 103 mmol/L (98-107); Glucose 166 mg/dL (74-99); Non-African American GFR(MDRD) >60 (>60 ml/min/1.73 sqM); Potassium 3.4 mmol/L (3.5-5.1); Sodium 140 mmol/L (137-145); Total Bilirubin 0.5 mg/dL (0.2-1.3); Total Protein 6.8 g/dL (6.3-8.2)
[2016-09-01 03:24] LABS: INR 1.1 (<1.1)
[2016-09-01 03:27] LABS: Partial Thromboplastin Time 27.8 sec (22.0-30.0)
[2016-09-01 03:33] LABS: Creatine Kinase 777 U/L (55-170)
[2016-09-01 03:44] LABS: Troponin I <0.012 ng/mL (0.000-0.034)
[2016-09-01 03:52] LABS: Creatine Kinase MB 5.2 ng/mL (0.0-2.4)
[2016-09-01] MEDS ORDERED: HEPARIN SODIUM,PORCINE 5,000 UNIT/ML 1 ML VIAL IV ONE (03:59)
[2016-09-01] MEDS ORDERED: HEPARIN SODIUM,PORCINE/D5W PMX 25,000 UNIT in DEXTROSE/WATER 1 500ML.BAG IV SCH (04:00)
[2016-09-01] MEDS ORDERED: NITROGLYCERIN SL TABS 0.4 MG TAB SUBLINGUAL PRN (04:08)
[2016-09-01 05:06] VITALS: RESP 18
[2016-09-01] MEDS ORDERED: ACETAMINOPHEN TAB 325 MG TAB PO PRN (05:23)
[2016-09-01] MEDS ORDERED: HEPARIN SODIUM,PORCINE 5,000 UNIT/ML 1 ML VIAL IV PRN (05:51)
[2016-09-01] MEDS ORDERED: NITROGLYCERIN OINT 1 INCH/GM PACKET TOPICAL SCH (07:00)
[2016-09-01] MEDS ORDERED: INSULIN LISPRO (humaLOG) 300 UNIT/3 ML VIAL SQ SCH (07:30)
[2016-09-01] MEDS ORDERED: amLODIPine 5 MG TAB PO ONE (10:45)
[2016-09-01] MEDS ORDERED: METOPROLOL SUCCINATE (ER) 50 MG TAB.ER.24H PO ONE (10:45)
[2016-09-01] MEDS ORDERED: LOSARTAN-HCTZ 50-12.5 MG 1 EACH TAB PO ONE (10:45)
--- NOTE | 2016-09-01 10:55 | CONS ---
DATE OF CONSULTATION: Attending Dr. Alarcon. Mr. Villavicencio is a 41-year-old male with known history of hypertension, prior history of diabetes who presented with symptoms of cough, headache and not feeling well. He was in the hospital in July of this year. He was advise to have a stress test as an outpatient, but because of his work schedule was not able to do that. He has been having the cough for a while, dry cough that is quite annoying and affected his sleeping. He denies any associated chest discomfort. He has some dyspnea on exertion. He has no palpitation. No syncope. No clear PND or orthopnea. No peripheral edema. His coronary risk factors are remarkable for hypertension. He had prior history of diabetes. He is a nonsmoker. His lipid profile is not available to me. His medications at home include amlodipine 5 mg daily, Seroquel, Toprol XL 50 mg daily, losartan HCT 100/25 mg daily, Depakote and Zyrtec. There is a question he was on lisinopril. REVIEW OF SYSTEMS: RESPIRATORY SYSTEM: He has the cough, nonproductive. He had history of bronchial asthma and was on inhalers updraft in the past. GI SYSTEM: No recent GI bleeding. No peptic ulcer disease. SYSTEM: No dysuria or hematuria. NERVOUS SYSTEM: No stroke or seizure. PHYSICAL EXAMINATION: A 41-year-old male, alert, oriented, in no apparent distress. Blood pressure 142/80 with the heart rate in the 90s. HEAD: Normocephalic. EYES: Sclerae anicteric. NECK: Good upstroke. No bruit. No jugular venous distention. LUNGS: Clear to auscultation. HEART: Regular rate and rhythm. S1, S2, no S3, no S4, no murmur or rub. ABDOMEN: Soft, nontender, positive bowel sounds. No organomegaly. EXTREMITIES: No edema. Intact distal pulses. EKG reveals sinus mechanism, normal axis and intervals, normal electrocardiogram. Chest x-ray shows no acute infiltrate. Lab data revealed troponin less than 0.012. BUN and creatinine of 16 and 0.8. Blood sugar 166. Potassium 3.4. Hemoglobin is 13.6. IMPRESSION: 1. Cough with headache. No evidence to suggest cardiac etiology could be related to sinus drainage. Patient is not sure if he is taking the XIOMARA inhibitor. 2. Hypertension. 3. Prior history of diabetes with elevated blood sugar. RECOMMENDATIONS: From the cardiac standpoint, I will stop the heparin. I will hold the XIOMARA inhibitor. Continue on the angiotensin receptor christ. Increase his level of activity. If he remains stable, he should be able to be discharged home from the cardiac standpoint and undergo a stress test as an outpatient. Thank you for this consult. We will follow with you.
[2016-09-01 11:36] VITALS: BP 136/87; PULSE 94; TEMP 98.1
[2016-09-01 11:41] LABS: Creatine Kinase 721 U/L (55-170)
[2016-09-01 11:54] LABS: Troponin I <0.012 ng/mL (0.000-0.034)
[2016-09-01 11:58] LABS: Creatine Kinase MB 5.4 ng/mL (0.0-2.4)
--- NOTE | 2016-09-01 16:06 | HP ---
DATE OF ADMISSION: 09/01/2016 PRESENTING COMPLAINT: Chest pain. HISTORY OF PRESENTING COMPLAINT: This is a pleasant 41-year-old patient of Dr. Alarcon. Patient's chronic stable medical conditions include a hypertension, ( ), bipolar disorder, which is controlled. Patient has been working very hard putting a lot of shift hours, not been sleeping well, often times lies away thinking. Patient has put on about 30 pounds in the last one year. Reflux symptoms have been getting worse. Sometimes he says he feels a dryness in the throat. Reflux symptoms getting up into his throat then he starts coughing, gets about a headache then he aches all over. Not been sleeping well. Patient's pain is not really precordial and is all over sometimes. REVIEW OF SYSTEMS: CONSTITUTIONAL: Tired. HEENT: He was told by his ex- he stops breathing when he is sleeping. RESPIRATORY: None. CARDIOVASCULAR: No precordial pain. GASTROINTESTINAL: Heartburn. GENITOURINARY: None. MUSCULOSKELETAL: Aches and pains here and there. GENITOURINARY: None. PSYCHIATRY: Anxious. NEUROLOGICAL: Tired. Does not sleep well. Past medical history of hypertension, osteoarthritis, bipolar. PAST SURGICAL HISTORY: Cardiac catheterization in 2012, colonoscopy, EGD, tonsillectomy. PSYCH HISTORY: Bipolar. SOCIAL HISTORY: , works at [employer]. Does not smoke. Alcohol rarely. Rents with ( ) partner. Family history of cancer and lymphoma. HOME MEDICATIONS: 1. Norvasc 5 mg daily. 2. Seroquel 300 mg q.h.s. 3. Toprol XL 50 mg p.o. daily. 4. Hyzaar 100/25 one tablet p.o. daily. 5. Zestoretic 20/12.5 one tablet p.o. b.i.d. 6. Depakote ER 1500 mg p.o. q.h.s. 7. Cetirizine 10 mg p.o. q.h.s. Allergies to TORADOL. On examination, temperature 98, pulse 87, respirations 18, blood pressure 121/65, pulse ox 93% on room air. GENERAL APPEARANCE: Morbidly obese, BMI of 43, lying in bed, tired appearing. EYES: Pupils equal. Conjunctivae normal. HEENT: External appearance of nose and ears normal. Oral cavity normal. NECK: JVD not raised. Mass not palpable. RESPIRATORY: Effort normal. Lungs are clear. CARDIOVASCULAR: First and second sounds normal. No edema. ABDOMEN: Soft, nontender. Liver and spleen not palpable. LYMPHATIC: No lymph nodes palpable in the neck or axillae. PSYCHIATRY: Alert and oriented x3. Mood and affect slightly anxious appearing. NEUROLOGICAL: Pupils equal. Cranial nerves grossly intact. Power and sensation grossly intact. INVESTIGATIONS: White count 8.6, hemoglobin 13.6. Potassium 3.4. Troponin less than 0.012. EKG normal sinus rhythm. ASSESSMENT: 1. Probably severe sleep deprivation from excessive working hours causing psychosomatic symptoms. 2. Snoring and periods of apnea as told by his ex-, need to rule out obstructive sleep apnea as an outpatient. 3. Morbid obesity, body mass index of 43.1. 4. Essential hypertension. 5. Gastroesophageal reflux disease. 6. Bipolar disorder, under control. 7. ( ), rule out a cardiac cause. PLAN: Home medications will be resumed. Cardiology is consulted. Highly doubt this to be a cardiac presentation. Patient told about weight loss measures. Should see a fabric and accessories estimator for his possible underlying sleep apnea. Will start the patient on PPIs.
[2016-09-02] MEDS ORDERED: amLODIPine 5 MG TAB PO SCH (09:00)
[2016-09-02] MEDS ORDERED: LOSARTAN-HCTZ 50-12.5 MG 1 EACH TAB PO SCH (09:00)
[2016-09-02] MEDS ORDERED: ASPIRIN 325 MG TAB PO SCH (09:00)
[2016-09-02] MEDS ORDERED: METOPROLOL SUCCINATE (ER) 50 MG TAB.ER.24H PO SCH (09:00)
--- NOTE | 2016-09-02 14:14 | DS ---
DATE OF ADMISSION: 09/01/2016 DATE OF DISCHARGE: 09/01/2016 FINAL DIAGNOSES: 1. Psychosomatic manifestation of severe sleep deprivation from working excessive hours. 2. Snoring and ( ) sleep apnea to be outpatient work-up of obstructive sleep apnea. 3. Morbid obesity, body mass index 43.1. 4. Essential hypertension. 5. Gastroesophageal reflux disease. 6. Bipolar disorder, controlled. 7. Gastroesophageal reflux disease. HOSPITAL COURSE: This patient works a lot, does not sleep well, very sleep deprived, aching here and there. [place] to be noncardiac chest pain. Patient also having GERD, having put on weight. Did have a dietitian see the patient before discharge. Patient was counseled about getting an outpatient sleep study done, losing weight. DISCHARGE MEDICATIONS: 1. Seroquel 300 mg p.o. q.h.s. 2. Depakote ER 1500 mg p.o. q.h.s. 3. Zestoretic 20/12.5, 1 tablet p.o. b.i.d. 4. Toprol-XL 50 mg p.o. daily. 5. Norvasc 5 mg p.o. daily. 6. Prilosec 20 mg with breakfast. Follow with Dr. Alarcon in 2 days. DIET: 1800 calorie diet. Patient has been given 3 days off from work. On examination: LUNGS: Distant breath sounds. CARDIOVASCULAR: Heart sounds distant.
== END 2016-09-01 15:18 | disposition home or self-care (01) ==
LOC: EC 02:15 → 3SUR 04:08
PROVIDERS: ADMIT Hospitalist; ATTEND Hospitalist
DX: F45.8 Other somatoform disorders (principal); Z72.820 Sleep deprivation; G47.30 Sleep apnea, unspecified; R06.83 Snoring; E66.01 Morbid (severe) obesity due to excess calories; Z68.41 Body mass index [BMI] 40.0-44.9, adult; E11.9 Type 2 diabetes mellitus without complications; F31.9 Bipolar disorder, unspecified; I10 Essential (primary) hypertension; I25.110 Atherosclerotic heart disease of native coronary artery with unstable angina pectoris; K21.9 Gastro-esophageal reflux disease without esophagitis; Z79.899 Other long term (current) drug therapy; R05 Cough; R51 Headache; F41.9 Anxiety disorder, unspecified; Z88.8 Allergy status to other drugs, medicaments and biological substances
CPT/HCPCS: 36415; 93005; 80053; 83036; 82550; 82553; 83735; 84484; 85025; 85610; 85730; 71020; 99291; 96375; 96376; G0378; J2060; J1644 ×2

== ENCOUNTER 2017-03-28 08:40 | Emergency (ER) | payer OTHER ==
[2017-03-28 08:50] VITALS: BP 158/88; PULSE 96; RESP 17; TEMP 97.1
--- NOTE | 2017-03-28 09:03 | ED ---
General Adult HPI - General Chief complaint: Extremity Injury, Upper Stated complaint: fall, left wrist injury Time Seen by Provider: 03/28/17 08:57 Source: patient, RN notes reviewed Mode of arrival: ambulatory Limitations: no limitations - History of Present Illness Initial comments: Patient is a pleasant 42-year-old male presenting to the emergency Department with left wrist injury. Incident occurred yesterday. Patient was carrying a small freezer up the steps when his boot tripped. Patient dropped a freezer and landed on his lateral left hand/wrist. Patient has discomfort with industrial chemist and movement. No other area of injury. No history of previous injury. No head injury or loss of consciousness - Related Data Home Medications Medication Instructions Recorded Confirmed QUEtiapine FUMARATE [SEROquel] 300 mg PO HS 05/20/14 03/28/17 Divalproex ER [Depakote ER] 1,500 mg PO HS 03/15/16 03/28/17 Lisinopril-Hctz 20-12.5 mg 1 tab PO BID 03/15/16 03/28/17 [Zestoretic 20-12.5] Metoprolol Succinate [Toprol XL] 50 mg PO DAILY 03/15/16 03/28/17 amLODIPine [Norvasc] 5 mg PO DAILY 03/15/16 03/28/17 Divalproex [Depakote] 250 mg PO HS 03/28/17 03/28/17 Previous Rx's Medication Instructions Recorded Hydrocodone/Acetaminophen [[place] 2 each PO Q6HR PRN #20 tab 03/28/17 5-325] Allergies Allergy/AdvReac Type Severity Reaction Status Date / Time ketorolac [From Toradol] AdvReac Nausea Verified 03/28/17 09:32 Review of Systems ROS Statement: Those systems with pertinent positive or pertinent negative responses have been documented in the HPI. ROS Other: All systems not noted in ROS Statement are negative. Constitutional: Denies: fever Eyes: Denies: eye pain ENT: Denies: ear pain Respiratory: Denies: cough Cardiovascular: Denies: chest pain Endocrine: Denies: fatigue Gastrointestinal: Denies: abdominal pain Genitourinary: Denies: dysuria Musculoskeletal: Denies: back pain Skin: Denies: rash Neurological: Denies: headache, weakness Past Medical History Past Medical History: Coronary Artery Disease (CAD), Diabetes Mellitus, GERD/ Reflux, Hyperlipidemia, Hypertension, Osteoarthritis (OA), Pneumonia, Sleep Apnea/CPAP/BIPAP Additional Past Medical History / Comment(s): Carpel tunnel bilat, pt states that he used to be diabetic and took metformin and no longer has to History of Any Multi-Drug Resistant Organisms: None Reported Past Surgical History: Heart Catheterization, Tonsillectomy Additional Past Surgical History / Comment(s): cardiac cath approx. 2012, stress test x2, colonoscopy with EGD Past Anesthesia/Blood Transfusion Reactions: No Reported Reaction Past Psychological History: Anxiety, Bipolar, Depression, PTSD Smoking Status: Never smoker - Past Family History Mother Family Medical History: Cancer Additional Family Medical History / Comment(s): lymphoma Father Family Medical History: Hypertension General Exam Limitations: no limitations General appearance: alert, in no apparent distress Head exam: Present: atraumatic Eye exam: Present: normal appearance Neck exam: Present: normal inspection. Absent: tenderness Respiratory exam: Present: normal lung sounds bilaterally Cardiovascular Exam: Present: regular rate, normal rhythm GI/Abdominal exam: Present: soft. Absent: tenderness Extremities exam: Present: tenderness (Mild tenderness left distal ulnar styloid process and left fifth metacarpal. Full range of motion and good industrial chemist strength. Distally the hand is neurovascularly intact.) Neurological exam: Present: alert Psychiatric exam: Present: normal affect, normal mood Skin exam: Present: normal color Course Vital Signs 03/28/17 08:46 Temperature 97.1 F L Pulse Rate 96 Respiratory 17 Rate Blood Pressure 158/88 O2 Sat by Pulse 97 Oximetry Procedures - Orthopedic Splinting/Casting Injury #1 Side: left Upper Extremity Injury Location: wrist Upper Extremity Immobilizer: ulnar gutter Additional Comments: Short arm splint. Examined postplacement with good alignment and neurovascularly intact. Medical Decision Making - Medical Decision Making Patient reexamined and updated. - Radiology Data Radiology results: image reviewed (X-ray of the left hand and left wrist shows nondisplaced impaction fracture distal ulna extending into the distal radial ulnar joint.) Disposition Clinical Impression: Distal end of ulna fracture, closed Disposition: HOME SELF-CARE Condition: Stable Instructions: Wrist Fracture in Adults (ED) Additional Instructions: Please follow-up with orthopedics in the next couple of days for recheck. No use left hand until released by Dr. Sosa for increased pain, swelling worsening symptoms or concerns. Rest and ice. Prescriptions: Hydrocodone/Acetaminophen [[place] 5-325] 2 each PO Q6HR PRN #20 tab PRN Reason: Pain Referrals: Marco Alarcon MD [Primary Care Provider] - 1-2 days Ibrahima Miller MD [Medical Doctor] - 1-2 days Time of Disposition: 10:04
--- NOTE | 2017-03-28 09:43 | XR ---
EXAMINATION TYPE: XR hand complete LT, XR wrist complete LT DATE OF EXAM: 03/28/2017 CLINICAL HISTORY: Fall with medial left wrist pain. TECHNIQUE: Frontal, lateral and oblique images of the left hand are obtained. Frontal, lateral and o blique images of the left wrist are obtained. COMPARISON: Right wrist radiographs dated 02/20/2014. FINDINGS: There is a focal area of cortical discontinuity in the distal radial ulnar joint of the ra dial aspect of the distal ulna concerning for subtle impaction fracture as no other marginal osteophy alban or degenerative changes are seen throughout the left hand and this is in the patient's stated are a of pain. Mild soft tissue swelling is seen of the wrist. No other fractures are identified. IMPRESSION: Findings concerning for a nondisplaced subtle distal ulnar impaction fracture extending i nto the distal radioulnar joint.
== END 2017-03-28 10:20 | disposition home or self-care (01) ==
LOC: EC 08:40
DX: S52.602A Unspecified fracture of lower end of left ulna, initial encounter for closed fracture (principal); S52.592A Other fractures of lower end of left radius, initial encounter for closed fracture; I10 Essential (primary) hypertension; I25.10 Atherosclerotic heart disease of native coronary artery without angina pectoris; F31.9 Bipolar disorder, unspecified; Z79.899 Other long term (current) drug therapy; Z88.6 Allergy status to analgesic agent; W18.40XA Slipping, tripping and stumbling without falling, unspecified, initial encounter; Y93.89 Activity, other specified
CPT/HCPCS: 29125; 99283

== ENCOUNTER 2018-08-16 00:15 | Emergency (ER) | payer OTHER ==
[2018-08-16 00:22] VITALS: TEMP 97.8
[2018-08-16] MEDS ORDERED: SODIUM CHLORIDE 0.9% 1,000 ML IV ONE (01:23)
[2018-08-16] MEDS ORDERED: ACETAMINOPHEN TAB 325 MG TAB PO STA (01:54)
[2018-08-16 02:22] LABS: Appearance,Urine Clear (Clear); Bilirubin,Urine Negative (Negative); Blood,Urine Negative (Negative); Color,Urine Colorless; Glucose,Urine (UA) 4+ (Negative); Ketones,Urine Negative (Negative); Leukocyte Esterase,Urine Negative (Negative); Nitrite,Urine Negative (Negative); PH, Urine 5.5 (5.0-8.0); Protein,Urine Negative (Negative); Specific Gravity,Urine 1.027 (1.001-1.035); Urobilinogen,Urine <2.0 mg/dL (<2.0)
[2018-08-16 02:22] LABS: Basophils # (A) 0.1 k/uL (0-0.2); Basophils % (A) 1 %; Eosinophils # (A) 0.4 k/uL (0-0.7); Eosinophils % (A) 5 %; HCT 47.5 % (39.0-53.0); Lymphocytes # (A) 2.4 k/uL (1.0-4.8); Lymphocytes % (A) 26 %; MCH 29.2 pg (25.0-35.0); MCHC 33.8 g/dL (31.0-37.0); MCV 86.5 fL (80.0-100.0); Mean Platelet Volume 6.9; Monocytes # (A) 0.5 k/uL (0-1.0); Monocytes % (A) 5 %; Neutrophils # (A) 5.8 k/uL (1.3-7.7); Neutrophils % (A) 62 %; Platelet Count 154 k/uL (150-450); RBC 5.49 m/uL (4.30-5.90); RDW 13.1 % (11.5-15.5); WBC 9.4 k/uL (3.8-10.6)
[2018-08-16 02:36] LABS: ALT 53 U/L (21-72); AST 58 U/L (17-59); Alkaline Phosphatase 104 U/L (38-126); Anion Gap 11 mmol/L; Blood Urea Nitrogen 11 mg/dL (9-20); Carbon Dioxide 30 mmol/L (22-30); Chloride 95 mmol/L (98-107); Potassium 4.1 mmol/L (3.5-5.1); Sodium 136 mmol/L (137-145); Total Bilirubin 0.9 mg/dL (0.2-1.3); Total Protein 7.5 g/dL (6.3-8.2)
[2018-08-16 02:46] LABS: Glucose 503 mg/dL (74-99)
[2018-08-16] MEDS ORDERED: SODIUM CHLORIDE 0.9% 2,000 ML IV ONE (02:50)
[2018-08-16] MEDS ORDERED: INSULIN REGULAR 100 UNIT/ML VIAL SQ STA (02:50)
[2018-08-16 03:02] VITALS: RESP 14
[2018-08-16 04:02] LABS: Glucose,Whole Blood 295 mg/dL (75-99)
--- NOTE | 2018-08-16 04:03 | ED ---
Weakness HPI - General Chief complaint: Weakness Stated complaint: dizziness,diarrhea Time Seen by Provider: 08/16/18 00:26 Source: patient Mode of arrival: ambulatory Limitations: no limitations - History of Present Illness Initial comments: This patient is a 43-year-old man with history of diabetes, who presents with complaint that he is feeling generalized fatigue, some weakness, probably urinary a and polydipsia, as well as having a number of loose bowel movements over the past week or so. Patient denies focal pain although he says he does have some body aches diffusely. There is no abdominal pain. No vomiting. No fever or chills. She notes that he is not able take his oral hypoglycemics due to the co-pay MD Complaint: generalized weakness, lack of energy Onset/Timin -: week(s) Location: generalized Severity: mild Quality: aching Consistency: intermittent Improves with: none Worsens with: none - Related Data Home Medications Medication Instructions Recorded Confirmed QUEtiapine FUMARATE [SEROquel] 300 mg PO HS 05/20/14 08/16/18 Divalproex ER [Depakote ER] 1,500 mg PO HS 03/15/16 08/16/18 Previous Rx's Medication Instructions Recorded metFORMIN HCL 500 mg PO BID #60 tablet 08/16/18 Allergies Allergy/AdvReac Type Severity Reaction Status Date / Time ketorolac [From Toradol] AdvReac Nausea Verified 03/28/17 09:32 Review of Systems ROS Statement: Those systems with pertinent positive or pertinent negative responses have been documented in the HPI. ROS Other: All systems not noted in ROS Statement are negative. Constitutional: Reports: weakness. Denies: fever, chills ENT: Denies: throat pain Respiratory: Denies: cough, dyspnea Cardiovascular: Denies: chest pain, syncope Endocrine: Reports: fatigue, polydipsia, polyuria Gastrointestinal: Reports: diarrhea. Denies: vomiting, melena, hematochezia Genitourinary: Denies: dysuria, hematuria Musculoskeletal: Reports: myalgia. Denies: back pain Skin: Denies: rash Neurological: Reports: headache. Denies: weakness, numbness Past Medical History Past Medical History: Coronary Artery Disease (CAD), Diabetes Mellitus, GERD/ Reflux, Hyperlipidemia, Hypertension, Osteoarthritis (OA), Pneumonia, Sleep Apnea/CPAP/BIPAP Additional Past Medical History / Comment(s): Jacklyn tunnel bilat, pt states that he used to be diabetic and took metformin and no longer has to History of Any Multi-Drug Resistant Organisms: None Reported Past Surgical History: Heart Catheterization, Tonsillectomy Additional Past Surgical History / Comment(s): cardiac cath approx. 2011, stress test x2, colonoscopy with EGD Past Anesthesia/Blood Transfusion Reactions: No Reported Reaction Past Psychological History: Anxiety, Bipolar, Depression, PTSD Smoking Status: Never smoker - Past Family History Mother Family Medical History: Cancer Additional Family Medical History / Comment(s): lymphoma Father Family Medical History: Hypertension General Exam Limitations: no limitations General appearance: alert, in no apparent distress Head exam: Present: atraumatic, normocephalic Eye exam: Present: normal appearance. Absent: scleral icterus, conjunctival injection ENT exam: Present: mucous membranes dry Neck exam: Present: full ROM. Absent: tenderness Respiratory exam: Present: normal lung sounds bilaterally. Absent: respiratory distress, wheezes, rales, rhonchi, stridor Cardiovascular Exam: Present: normal rhythm, tachycardia, normal heart sounds. Absent: systolic murmur, diastolic murmur, rubs, gallop GI/Abdominal exam: Present: soft. Absent: distended, tenderness, guarding, rebound, rigid Extremities exam: Present: normal inspection, normal capillary refill. Absent: pedal edema, calf tenderness Back exam: Present: normal inspection Neurological exam: Present: alert Skin exam: Present: warm, dry, intact, normal color. Absent: rash Course Vital Signs 08/16/18 08/16/18 08/16/18 00:19 01:51 03:01 Temperature 97.8 F Pulse Rate 111 H 89 91 Respiratory 20 18 14 Rate Blood Pressure 167/113 159/104 163/109 O2 Sat by Pulse 94 L 96 92 L Oximetry 08/16/18 04:19 Temperature Pulse Rate 83 Respiratory 14 Rate Blood Pressure 159/100 O2 Sat by Pulse 93 L Oximetry Medical Decision Making - Lab Data Result diagrams: 08/16/18 01:40 08/16/18 01:40 Lab Results 08/16/18 08/16/18 08/16/18 Range/Units 01:30 01:40 01:40 WBC 9.4 (3.8-10.6) k/uL RBC 5.49 (4.30-5.90) m/uL Hgb 16.0 (13.0-17.5) gm/dL Hct 47.5 (39.0-53.0) % MCV 86.5 (80.0-100.0) fL MCH 29.2 (25.0-35.0) pg MCHC 33.8 (31.0-37.0) g/dL RDW 13.1 (11.5-15.5) % Plt Count 154 (150-450) k/uL Neutrophils % 62 % Lymphocytes % 26 % Monocytes % 5 % Eosinophils % 5 % Basophils % 1 % Neutrophils # 5.8 (1.3-7.7) k/uL Lymphocytes # 2.4 (1.0-4.8) k/uL Monocytes # 0.5 (0-1.0) k/uL Eosinophils # 0.4 (0-0.7) k/uL Basophils # 0.1 (0-0.2) k/uL Sodium (137-145) mmol/L Potassium (3.5-5.1) mmol/L Chloride (98-107) mmol/L Carbon Dioxide (22-30) mmol/L Anion Gap mmol/L BUN (9-20) mg/dL Creatinine (0.66-1.25) mg/dL Est GFR (CKD-EPI)AfAm (>60 ml/min/1.73 sqM) Est GFR (CKD-EPI)NonAf (>60 ml/min/1.73 sqM) Glucose (74-99) mg/dL POC Glucose (mg/dL) (75-99) mg/dL POC Glu [employer] Associate Teacher ID Calcium (8.4-10.2) mg/dL Magnesium (1.6-2.3) mg/dL Total Bilirubin (0.2-1.3) mg/dL AST (17-59) U/L ALT (21-72) U/L Alkaline Phosphatase (38-126) U/L Troponin I (0.000-0.034) ng/mL Total Protein (6.3-8.2) g/dL Albumin (3.5-5.0) g/dL Urine Color Colorless Urine Appearance Clear (Clear) Urine pH 5.5 (5.0-8.0) Ur Specific [place] 1.027 (1.001-1.035) Urine Protein Negative (Negative) Urine Glucose (UA) 4+ H (Negative) Urine Ketones Negative (Negative) Urine Blood Negative (Negative) Urine Nitrite Negative (Negative) Urine Bilirubin Negative (Negative) Urine Urobilinogen <2.0 (<2.0) mg/dL Ur Leukocyte Esterase Negative (Negative) Acetone, Qual Negative (Negative) 08/16/18 08/16/18 08/16/18 Range/Units 01:40 01:40 04:00 WBC (3.8-10.6) k/uL RBC (4.30-5.90) m/uL Hgb (13.0-17.5) gm/dL Hct (39.0-53.0) % MCV (80.0-100.0) fL MCH (25.0-35.0) pg MCHC (31.0-37.0) g/dL RDW (11.5-15.5) % Plt Count (150-450) k/uL Neutrophils % % Lymphocytes % % Monocytes % % Eosinophils % % Basophils % % Neutrophils # (1.3-7.7) k/uL Lymphocytes # (1.0-4.8) k/uL Monocytes # (0-1.0) k/uL Eosinophils # (0-0.7) k/uL Basophils # (0-0.2) k/uL Sodium 136 L (137-145) mmol/L Potassium 4.1 (3.5-5.1) mmol/L Chloride 95 L (98-107) mmol/L Carbon Dioxide 30 (22-30) mmol/L Anion Gap 11 mmol/L BUN 11 (9-20) mg/dL Creatinine 0.73 (0.66-1.25) mg/dL Est GFR (CKD-EPI)AfAm >90 (>60 ml/min/1.73 sqM) Est GFR (CKD-EPI)NonAf >90 (>60 ml/min/1.73 sqM) Glucose 503 H* (74-99) mg/dL POC Glucose (mg/dL) 295 H (75-99) mg/dL POC Glu [employer] Associate Teacher ID Alfa Farias Blanka Calcium 9.0 (8.4-10.2) mg/dL Magnesium 2.0 (1.6-2.3) mg/dL Total Bilirubin 0.9 (0.2-1.3) mg/dL AST 58 (17-59) U/L ALT 53 (21-72) U/L Alkaline Phosphatase 104 (38-126) U/L Troponin I <0.012 (0.000-0.034) ng/mL Total Protein 7.5 (6.3-8.2) g/dL Albumin 4.0 (3.5-5.0) g/dL Urine Color Urine Appearance (Clear) Urine pH (5.0-8.0) Ur Specific [place] (1.001-1.035) Urine Protein (Negative) Urine Glucose (UA) (Negative) Urine Ketones (Negative) Urine Blood (Negative) Urine Nitrite (Negative) Urine Bilirubin (Negative) Urine Urobilinogen (<2.0) mg/dL Ur Leukocyte Esterase (Negative) Acetone, Qual (Negative) Disposition Clinical Impression: Hyperglycemia Disposition: HOME SELF-CARE Condition: Fair Instructions (If sedation given, give patient instructions): Diabetic Hyperglycemia (ED) Prescriptions: metFORMIN HCL 500 mg PO BID #60 tablet Is patient prescribed a controlled substance at d/c from ED?: No Referrals: None,Stated [Primary Care Provider] - 1-2 days
[2018-08-16 04:20] VITALS: BP 159/100; PULSE 83
== END 2018-08-16 04:19 | disposition home or self-care (01) ==
LOC: EC 00:15
DX: E11.65 Type 2 diabetes mellitus with hyperglycemia (principal); R42 Dizziness and giddiness; R19.7 Diarrhea, unspecified; F31.9 Bipolar disorder, unspecified; G47.30 Sleep apnea, unspecified; Z99.89 Dependence on other enabling machines and devices; Z95.818 Presence of other cardiac implants and grafts; Z79.899 Other long term (current) drug therapy; Z88.6 Allergy status to analgesic agent
CPT/HCPCS: 36415; 80053; 81003; 82009; 83735; 84484; 85025; 93005; 96360; 96361; 99285

== ENCOUNTER 2019-10-03 19:27 | Emergency (ER) | payer OTHER ==
[2019-10-03 19:32] VITALS: TEMP 98.9
[2019-10-03] MEDS ORDERED: MORPHINE SULFATE 4 MG/ML SYRINGE IM STA (19:49)
[2019-10-03] MEDS ORDERED: LIDOCAINE 1% INJ 10MG/ML (20 ML MDV) SQ ONE (19:49)
[2019-10-03] MEDS ORDERED: DIPH,PERTUS(ACELL)TETVAC-LF 0.5 ML VIAL IM ONE (19:50)
[2019-10-03] MEDS ORDERED: ceFAZolin 1,000 MG VIAL (IM USE) IM STA (19:50)
--- NOTE | 2019-10-03 20:15 | XR ---
EXAMINATION TYPE: XR hand complete LT DATE OF EXAM: 10/03/2019 COMPARISON: Left hand x-ray March 28, 2017. HISTORY: Injury with pain. TECHNIQUE: 3 views left fifth finger are acquired. FINDINGS: Focal soft tissue swelling or soft tissue injury palmar surface level of fifth proximal pha lanx without acute displaced fracture . Joint spaces are preserved. Possible punctate foreign body on image 1 near fifth PIP joint does not reproduce on oblique image. Lateral view is suboptimal due to digit overlap. IMPRESSION: As above.
--- NOTE | 2019-10-03 21:21 | ED ---
Wound/Laceration HPI - General Chief Complaint: Wound/Laceration Stated Complaint: Finger lac Source: patient Mode of arrival: ambulatory Limitations: no limitations - History of Present Illness Initial Comments: 44-year-old male presenting for laceration on the hand just proximal to the fourth and fifth digit on the palmar surface. Patient states he was at work was hand got stuck in a machine. Patient states the causing a laceration. Patient states he applied pressure and was brought to the emergency department by cab. Patient denies any numbness tingling or loss of sensation he still states that he can bend flexing and extending at the digit without limitations in strength and mobility. Patient states this does induce pain at the site of laceration. She states it continues to bleed he is unsure of his last tetanus. Patient denies hand pain, wrist pain or any other areas of injury. Remaining ROS (-) Upon arrival patient appears well no distress. - Related Data Home Medications Medication Instructions Recorded Confirmed QUEtiapine FUMARATE [SEROquel] 300 mg PO HS 05/20/14 08/16/18 Divalproex ER [Depakote ER] 1,500 mg PO HS 03/15/16 08/16/18 Previous Rx's Medication Instructions Recorded metFORMIN HCL 500 mg PO BID #60 tablet 08/16/18 Cephalexin [Keflex] 500 mg PO Q12HR 5 Days #10 cap 10/03/19 Allergies Allergy/AdvReac Type Severity Reaction Status Date / Time ketorolac [From Toradol] AdvReac Nausea Verified 10/03/19 19:32 Review of Systems ROS Statement: Those systems with pertinent positive or pertinent negative responses have been documented in the HPI. ROS Other: All systems not noted in ROS Statement are negative. Past Medical History Past Medical History: Coronary Artery Disease (CAD), Diabetes Mellitus, GERD/Reflux, Hyperlipidemia, Hypertension, Osteoarthritis (OA), Pneumonia, Sleep Apnea/CPAP/BIPAP Additional Past Medical History / Comment(s): Carpel tunnel bilat, pt states that he used to be diabetic and took metformin and no longer has to History of Any Multi-Drug Resistant Organisms: None Reported Past Surgical History: Heart Catheterization, Tonsillectomy Additional Past Surgical History / Comment(s): cardiac cath approx. 2011, stress test x2, colonoscopy with EGD Past Anesthesia/Blood Transfusion Reactions: No Reported Reaction Past Psychological History: Anxiety, Bipolar, Depression, PTSD Smoking Status: Never smoker - Past Family History Mother Family Medical History: Cancer Additional Family Medical History / Comment(s): lymphoma Father Family Medical History: Hypertension General Exam - General Exam Comments Initial Comments: General: The patient is awake and alert, in no distress, and does not appear acutely ill. Musculoskeletal: Normal ROM, no tenderness. Strength 5/5. Sensation intact. Radial pulses equal bilaterally 2+. Capillary refill < 3 seconds. Neurological: A&O x 3. CN II-XII intact grossly, There are no obvious motor or sensory deficits. Coordination appears grossly intact. Speech is normal. Skin: Skin is warm and dry and no rashes 2cm laceration on rojas surface of hand between digits 4/5. It extend slightly between the digits toward the 5th digit. There is no tendon exposure of evidence of foreign body. Actively bleeding. Sensation intact proximal and distal to injury site. Full ROM and strength at MCP, DIP and PIP joints. Psychiatric: Cooperative, appropriate mood & affect, normal judgment. Limitations: no limitations Course Vital Signs 10/03/19 10/03/19 19:28 21:35 Temperature 98.9 F Pulse Rate 92 89 Respiratory 20 18 Rate Blood Pressure 179/100 158/98 O2 Sat by Pulse 98 98 Oximetry Procedures - Laceration Laceration #1 Consent Obtained: verbal consent Indication: laceration Site: hand Size (cm): 2 Description: linear Depth: simple, single layer Anesthetic Used: lidocaine 1% Anesthesia Technique: local infiltration, nerve block Amount (mls): 5 Pre-repair: wound explored, irrigated extensively, deep structures intact Type of Sutures: nylon Size of Sutures: 5-0 Number of Sutures: 6 Technique: simple, interrupted Patient Tolerated Procedure: well, no complications Medical Decision Making - Medical Decision Making 44-year-old male presenting for left hand laceration. Laceration was repaired after extensively irrigated and cleansed with iodine. Wound edges approximated well there is no obvious tendon injury. I did educate patient on the importance of timely follow-up if patient developed any decreased mobility or strength he is to follow-up in the emergency department immediately. Patient will be placed on antibiotics. NO fractures appreciated. Bleeding controlled and patient was discharged appearing well with PCP and orthopedic f/u. Disposition Clinical Impression: Finger laceration, Laceration of left little finger Disposition: HOME SELF-CARE Condition: Good Additional Instructions: Please use medication as discussed. Please follow-up with family doctor in the next 2 days, clearance for work by primary care provider. Please follow-up with orthopedic surgery to ensure no tendon injury. Please return to emergency room if the symptoms increase or worsen or for any other concerns. Prescriptions: Cephalexin [Keflex] 500 mg PO Q12HR 5 Days #10 cap Is patient prescribed a controlled substance at d/c from ED?: No Referrals: Mckayla Monte MD [Primary Care Provider] - 1-2 days Bill Lama DO [Medical Doctor] - 1-2 days Time of Disposition: 21:20
[2019-10-03 21:35] VITALS: BP 158/98; PULSE 89; RESP 18
== END 2019-10-03 21:36 | disposition home or self-care (01) ==
LOC: EC 19:27
DX: S61.217A Laceration without foreign body of left little finger without damage to nail, initial encounter (principal); S61.215A Laceration without foreign body of left ring finger without damage to nail, initial encounter; I25.10 Atherosclerotic heart disease of native coronary artery without angina pectoris; G47.30 Sleep apnea, unspecified; F31.9 Bipolar disorder, unspecified; F41.9 Anxiety disorder, unspecified; Z88.6 Allergy status to analgesic agent; Z79.899 Other long term (current) drug therapy; Z99.89 Dependence on other enabling machines and devices; Z95.818 Presence of other cardiac implants and grafts; Z23 Encounter for immunization; W31.82XA Contact with other commercial machinery, initial encounter; Y92.69 Other specified industrial and construction area as the place of occurrence of the external cause; Y99.0 Civilian activity done for income or pay
CPT/HCPCS: 73130; 90715; 99283; 12001; 96372 ×2; 90471; J2270; J0690; J2001

== ENCOUNTER 2020-03-09 17:35 | Emergency (ER) | payer OTHER ==
[2020-03-09 17:45] VITALS: BP 158/87; PULSE 92; RESP 18; TEMP 97.9
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
== END 2020-03-09 18:42 | disposition home or self-care (01) ==
LOC: EC 17:35
DX: Z77.098 Contact with and (suspected) exposure to other hazardous, chiefly nonmedicinal, chemicals (principal); G47.30 Sleep apnea, unspecified; F31.9 Bipolar disorder, unspecified; F43.10 Post-traumatic stress disorder, unspecified; F41.9 Anxiety disorder, unspecified; Z79.899 Other long term (current) drug therapy; Z88.6 Allergy status to analgesic agent; Z99.89 Dependence on other enabling machines and devices; Y92.69 Other specified industrial and construction area as the place of occurrence of the external cause; Y99.0 Civilian activity done for income or pay
CPT/HCPCS: 99283

== ENCOUNTER → 2020-03-10 | Outpatient (CLI) | payer OTHER ==
--- NOTE | 2020-03-10 12:24 | XR ---
EXAMINATION TYPE: XR wrist complete 4 views LT, XR hand complete 3 views LT DATE OF EXAM: 03/10/2020 COMPARISON: NONE HISTORY: 45-year-old male S60.222A, contusion and pain. FINDINGS: Left wrist: The radiocarpal and distal radial ulnar joint as well as the midcarpal compartment appear intact. The re is some mild degenerative spurring at the distal radial ulnar joint with slight positive ulnar adonay iance. There may be some soft tissue swelling at the wrist. No acute fracture, subluxation, or disloc ation. Faint vascular calcifications. Left hand: Mild spurring at the first CMC and triscaphe joint. No acute fracture, subluxation, or dislocation se en. Mild marginal spurring at the DIP joints. IMPRESSION: 1. Left wrist: Some soft tissue swelling. Some mild degenerative spurring at the distal radial ulnar joint and base of the thumb. Faint vascular calcification suggests underlying diabetes and her chroni c kidney disease. No acute osseous abnormality seen. 2. Left hand: No acute osseous abnormality seen.
== END | disposition home or self-care (01) ==
LOC: RADXRMAIN 10:58
PROVIDERS: ATTEND Emergency Medicine
DX: M19.032 Primary osteoarthritis, left wrist (principal)

== ENCOUNTER 2020-05-11 19:38 | Emergency (ER) | payer OTHER ==
[2020-05-11 19:43] VITALS: RESP 18
--- NOTE | 2020-05-11 20:04 | ED ---
General Adult HPI - General Chief complaint: Extremity Injury, Upper Stated complaint: [facility]-shoulder injury Time Seen by Provider: 05/11/20 19:57 Source: patient, RN notes reviewed Mode of arrival: ambulatory Limitations: no limitations - History of Present Illness Initial comments: Patient is a pleasant 45-year-old male presenting to the emergency Department with complaints of left shoulder discomfort. Patient was at work proximal he 4 days ago when he was pulling on something with his left arm. Patient did have some discomfort of his left shoulder at that time. Patient does frequently do similar type movements repetitively at work. Patient states discomfort is mostly in the left shoulder however sometimes does radiate towards the left upper back or towards the neck. No weakness. No loss of sensation. No history of chronic similar problems previously. - Related Data Home Medications Medication Instructions Recorded Confirmed QUEtiapine FUMARATE [SEROquel] 300 mg PO HS 05/20/14 08/16/18 Divalproex ER [Depakote ER] 1,500 mg PO HS 03/15/16 08/16/18 Previous Rx's Medication Instructions Recorded metFORMIN HCL 500 mg PO BID #60 tablet 08/16/18 Cephalexin [Keflex] 500 mg PO Q12HR 5 Days #10 cap 10/03/19 Cyclobenzaprine [Flexeril] 10 mg PO TID PRN #12 tablet 05/11/20 Ibuprofen [Motrin] 600 mg PO Q6HR PRN #20 tab 05/11/20 Allergies Allergy/AdvReac Type Severity Reaction Status Date / Time ketorolac [From Toradol] AdvReac Nausea Verified 05/11/20 19:43 Review of Systems ROS Statement: Those systems with pertinent positive or pertinent negative responses have been documented in the HPI. ROS Other: All systems not noted in ROS Statement are negative. Constitutional: Denies: fever Eyes: Denies: eye pain ENT: Denies: ear pain Respiratory: Denies: cough Cardiovascular: Denies: chest pain Endocrine: Denies: fatigue Gastrointestinal: Denies: abdominal pain Genitourinary: Denies: dysuria Musculoskeletal: Reports: as per HPI Skin: Denies: rash Neurological: Denies: weakness, numbness, paresthesias Past Medical History Past Medical History: Coronary Artery Disease (CAD), Diabetes Mellitus, GERD/Reflux, Hyperlipidemia, Hypertension, Osteoarthritis (OA), Pneumonia, Sleep Apnea/CPAP/BIPAP Additional Past Medical History / Comment(s): Carpel tunnel bilat, pt states that he used to be diabetic and took metformin and no longer has to History of Any Multi-Drug Resistant Organisms: None Reported Past Surgical History: Heart Catheterization, Tonsillectomy Additional Past Surgical History / Comment(s): cardiac cath approx. 2011, stress test x2, colonoscopy with EGD Past Anesthesia/Blood Transfusion Reactions: No Reported Reaction Past Psychological History: Anxiety, Bipolar, Depression, PTSD Smoking Status: Never smoker Past Alcohol Use History: Rare Past Drug Use History: None Reported - Past Family History Mother Family Medical History: Cancer Additional Family Medical History / Comment(s): lymphoma Father Family Medical History: Hypertension General Exam Limitations: no limitations General appearance: alert, in no apparent distress Head exam: Present: normocephalic Eye exam: Present: normal appearance Neck exam: Present: normal inspection, full ROM. Absent: tenderness Respiratory exam: Present: normal lung sounds bilaterally Cardiovascular Exam: Present: regular rate, normal rhythm GI/Abdominal exam: Present: soft. Absent: tenderness Extremities exam: Present: full ROM (With minimal discomfort), tenderness (Mild tenderness left shoulder), normal capillary refill Back exam: Present: normal inspection. Absent: tenderness Neurological exam: Present: alert. Absent: motor sensory deficit Expanded Sensory exam: Upper Extremity Light Touch: Normal Motor strength exam: RUE: 5, LUE: 5 Psychiatric exam: Present: normal affect, normal mood Skin exam: Present: normal color Course Vital Signs 05/11/20 19:41 Temperature 97.9 F Pulse Rate 85 Respiratory 18 Rate Blood Pressure 144/89 O2 Sat by Pulse 97 Oximetry Medical Decision Making - Medical Decision Making Patient reevaluated and updated. - Radiology Data Radiology results: image reviewed (Left shoulder x-ray shows no acute) Disposition Clinical Impression: Shoulder strain Disposition: HOME SELF-CARE Condition: Stable Instructions (If sedation given, give patient instructions): Shoulder Pain (ED) Additional Instructions: Please follow-up with [facility] in the next day or 2 for recheck. No use left arm until released by [facility]. Use sling. Ice to affected area. Motrin prescription provided. Also provided prescription for muscle relaxers, sent to your pharmacy. Return for increased pain, weakness, neck problems, worsening symptoms or other concerns. Do not use muscle relaxers at work. Prescriptions: Cyclobenzaprine [Flexeril] 10 mg PO TID PRN #12 tablet PRN Reason: Pain Ibuprofen [Motrin] 600 mg PO Q6HR PRN #20 tab PRN Reason: Pain Is patient prescribed a controlled substance at d/c from ED?: No Referrals: Mckayla Monte MD [Primary Care Provider] - 1-2 days Time of Disposition: 20:49
--- NOTE | 2020-05-11 20:14 | XR ---
EXAMINATION TYPE: XR shoulder complete LT DATE OF EXAM: 05/11/2020 COMPARISON: NONE HISTORY: Pain TECHNIQUE: Shoulder examined in 3 views FINDINGS: The humeral head articulates with the glenoid. The acromio-clavicular junction is normal. No acute fractures or dislocations are evident. A follow up study can be performed 7-10 days from acute trauma for continued pain. IMPRESSION: 1. Normal Shoulder
[2020-05-11] MEDS ORDERED: IBUPROFEN 600 MG STARTER PACK 4 TAB BTL PO STA (20:48)
[2020-05-11] MEDS ORDERED: CYCLOBENZAPRINE 10MG STARTER 3 TAB BTL PO STA (20:50)
[2020-05-11 21:09] VITALS: BP 157/107; PULSE 91; TEMP 97.6
== END 2020-05-11 21:08 | disposition home or self-care (01) ==
LOC: EC 19:38
DX: S46.912A Strain of unspecified muscle, fascia and tendon at shoulder and upper arm level, left arm, initial encounter (principal); F41.9 Anxiety disorder, unspecified; F31.9 Bipolar disorder, unspecified; G47.33 Obstructive sleep apnea (adult) (pediatric); Z79.899 Other long term (current) drug therapy; Z88.6 Allergy status to analgesic agent; Z99.89 Dependence on other enabling machines and devices; Z95.5 Presence of coronary angioplasty implant and graft; X50.3XXA Overexertion from repetitive movements, initial encounter; Y92.69 Other specified industrial and construction area as the place of occurrence of the external cause; Y99.0 Civilian activity done for income or pay
CPT/HCPCS: 99283

== ENCOUNTER → 2020-05-16 | Outpatient (CLI) | payer OTHER ==
--- NOTE | 2020-05-16 18:46 | MR ---
EXAMINATION TYPE: MR shoulder LT wo con DATE OF EXAM: 05/16/2020 COMPARISON: Left shoulder x-ray May 11, 2020 HISTORY: Pain with difficulty raising arm overhead after injury. Possible rotator cuff tear. TECHNIQUE: Multiplanar, multisequence imaging of the left shoulder is performed without contrast. FINDINGS: Rotator Cuff: Areas of increased signal and subtle partial tearing distal infraspinatus tendon near r otator cuff tendon attachment. Supraspinatus tendon intact. Subscapularis tendon intact. Rotator cuff muscle bulk preserved. Acromioclavicular Joint: Moderate narrowing and capsular hypertrophy. Loss of underlying fat plane an teriorly with local mass effect on supraspinatus muscle bulk sagittal image 21. No significant spurri ng. Distal acromion morphology unremarkable. Glenohumeral Joint: Small to moderate size glenohumeral joint effusion. Mild to moderate narrowing. N o significant spurring. Labrum: The labrum appears grossly intact given limitation of non-arthrogram study. Prominent sublabr al recess suspected coronal image 14. Biceps Tendon: The long head of biceps is in normal location within bicipital groove. Bone marrow signal: No focal abnormal marrow signal is appreciated. Other: No additional significant abnormality is appreciated. IMPRESSION: 1. Partial tearing/tendinosis of the distal infraspinatus tendon. No full-thickness retracted rotator cuff tear. Mild to moderate AC joint arthropathy with suggestion of underlying impingement.
== END | disposition home or self-care (01) ==
LOC: RADMRIMAIN 17:01
PROVIDERS: ATTEND Emergency Medicine
DX: M12.812 Other specific arthropathies, not elsewhere classified, left shoulder (principal)

== ENCOUNTER → 2020-08-02 | Outpatient (CLI) | payer OTHER ==
--- NOTE | 2020-08-02 23:26 | MR ---
EXAMINATION TYPE: MR cervical spine wo con DATE OF EXAM: 08/02/2020 COMPARISON: None HISTORY: Yanked hard on a strap, Neck Pain into Left Arm, Numbness in Left Arm Multiplanar multiecho imaging of the cervical spine was performed without contrast. Cervical vertebra have normal alignment. The posterior elements are intact. There is posterior disc h erniation at C6-7 with sequestered disc elevating the posterior longitudinal ligament at the C6 level . This projects towards the left side and there is neural foraminal impingement. There is no signific ant spinal stenosis. Cervical spinal cord shows no edema. There is no evidence of a cervical cord mas s. The brainstem appears intact. I see no bony destructive process. IMPRESSION: Moderate-sized posterior C6-7 cervical disc herniation with sequestered and extruded fragment and nicol vation of the posterior longitudinal ligament on the left side. There is left-sided neural foraminal impingement which is probably clinically significant in this patient with left arm pain.
== END | disposition home or self-care (01) ==
LOC: RADMRIMAIN 16:08
PROVIDERS: ATTEND Orthopaedic Surgery
DX: M50.223 Other cervical disc displacement at C6-C7 level (principal)
CPT/HCPCS: 72141

== ENCOUNTER 2020-10-18 09:45 | Day surgery (SDC) | payer OTHER ==
[2020-10-13 12:49] VITALS: BMI 40.4
[2020-10-18 10:06] VITALS: RESP 16; TEMP 97.9
[2020-10-18 10:18] LABS: Glucose,Whole Blood 132 mg/dL (75-99)
[2020-10-18] MEDS ORDERED: LACTATED RINGERS 1,000 ML IV ONE (10:18)
[2020-10-18] MEDS ORDERED: LIDOCAINE 1% (10MG/ML) FOR IV START INTRADERMA ONE (10:18)
[2020-10-18] MEDS ORDERED: IOPAMIDOL M200 10 ML VIAL ONE (10:36)
[2020-10-18] MEDS ORDERED: DEXAMETHASONE SOD PHOSPHATE 10 MG/ML 1 ML VIAL ONE (10:36)
[2020-10-18] MEDS ORDERED: IV FLUID CONTINUATION 850 ML IV ONE (11:07)
[2020-10-18] MEDS ORDERED: LACTATED RINGERS 1,000 ML IV SCH (11:15)
[2020-10-18 11:43] VITALS: BP 126/77; PULSE 79
--- NOTE | 2020-10-18 11:49 | P.PCN ---
Date of Procedure: 10/18/20 Description of Procedure: Pre- and Post-operative Diagnosis: Cervical radiculopathy Procedure done: Left-sided C6-C7 Inter-Laminar Cervical Epidural Steroid Injection under biplanar fluoroscopy Scheduled procedure: Left-sided C5-C6, C6-C7 transforaminal epidural steroid injection. Unable to visualize transforaminal view clearly under supine, and prone view. Dr. Fuller was present during the procedure, not able to visualize clearly, discussed with the patient. Procedure converted to C6-C7 interlaminar cervical epidural sterile injection. Surgeon: Bronson Guerrero Anesthesia: Local: 1% Lidocaine, IV sedation : None. Complications: None. Estimated blood loss: None Specimens removed: None Fluoroscopic image: saved to electronic medical records. Indications for Procedure: The patient has been suffering from neck pain and pain radiating to the upper extremity . Inadequate pain control with pharmacologic regimen. An inter-laminar approach cervical epidural steroid injection was scheduled for the patient. Procedure and Findings: The patient was seen and examined in the holding area. The written informed consent was obtained after explaining the risks, benefits, alternatives of the procedure to the patient. The patient was brought to the procedure room and was placed in the prone position on the operating table. A pillow was placed under the upper chest. Standard anesthesia monitoring was done through out the procedure. Timeout was completed. The skin preparation was done with ChloraPrep 2 and draping was done in usual sterile fashion. Sterile technique was observed throughout the procedure. Under fluoroscopic guidance, C6-C7 inter-laminar space was identified. 3 ml of 1% Lidocaine was injected with a 25 gauge needle to achieve adequate local anesthesia of the skin and subcutaneous tissue. A 20 gauge, 3.5 inch Tuohy type epidural needle was placed and gradually advanced up to the epidural space using loss of resistance technique and fluoroscopic guidance. Lateral, oblique fluoroscopic views confirm the needle position. No paresthesia was noted. A negative aspiration was confirmed and then 1 ml of Isovue-200 was injected. A good dye spread was seen in the epidural space and it was negative for any intrathecal, intraneural or intravascular spread. A total of 5 ml solution containing 10 mg Dexamethasone, and 4 ml preservative-free Normal Saline was injected slowly with intermittent aspiration. The needle was removed intact, area was cleaned and bandage was applied. Disposition : The patient tolerated the procedure very well. The patient was transferred to the recovery room and remained stable until discharged home. The patient was given detailed discharge instructions for bleeding, infection, increased pain at the injection site, and was advised to seek immediate medical attention should significant side effects develop. The patient will be followed up with our [facility] within 4 weeks for follow-up visit.
--- NOTE | 2020-10-18 13:22 | FL ---
EXAMINATION TYPE: FL guided pain mgmt statistic DATE OF EXAM: 10/18/2020 FLUOROSCOPY Fluoroscopy time of 21 seconds was used during cervical epidural steroid injection. 3 image/s docume nt/s the procedure.
== END 2020-10-18 11:43 | disposition home or self-care (01) ==
LOC: ORPAIN 09:45
DX: M50.122 Cervical disc disorder at C5-C6 level with radiculopathy (principal); Z80.7 Family history of other malignant neoplasms of lymphoid, hematopoietic and related tissues; F41.9 Anxiety disorder, unspecified; F32.9 Major depressive disorder, single episode, unspecified; E11.9 Type 2 diabetes mellitus without complications; I10 Essential (primary) hypertension; Z88.5 Allergy status to narcotic agent
CPT/HCPCS: 62321; J1100; Q9966

== ENCOUNTER 2021-05-11 11:58 | Day surgery (SDC) | payer OTHER ==
[2021-05-09 11:45] VITALS: BMI 41.8
[~2021-05-11 11:58] MED LIST: LACTATED RINGERS 1,000 ML IV SCH
[2021-05-11 12:46] VITALS: RESP 16; TEMP 97.6
[2021-05-11 12:56] LABS: Glucose,Whole Blood 150 mg/dL (75-99)
[2021-05-11] MEDS ORDERED: IOPAMIDOL M200 10 ML VIAL ONE (13:12)
[2021-05-11] MEDS ORDERED: DEXAMETHASONE SOD PHOSPHATE 10 MG/ML 1 ML VIAL ONE (13:12)
--- NOTE | 2021-05-11 13:27 | P.PCN ---
Date of Procedure: 05/11/21 Surgeon: Joe Mares Pathology: none sent Condition: stable Disposition: PACU Description of Procedure: PROCEDURE 1. Cervical epidural steroid injection under fluoroscopic guidance at C6-7 in the left paramedian approach. 2. Cervical epidurogram. : PREOPERATIVE DIAGNOSIS: Cervical radiculopathy, cervical spondylosis without myelopathy POSTOPERATIVE DIAGNOSIS: : Same as above ANESTHESIA: Local anesthesia only with 1% lidocaine. EBL 0 PROCEDURE INDICATION: The patient with neck pain and radiculopathy unresponsive to conservative treatment consents for procedure. PROCEDURE DESCRIPTION / TECHNIQUE: The patient was seen and identified in the preoperative area. Risks, benefits, complications, including but not limited to infections ,bleeding , allergic reactions to the medications ,and not complete pain relief, and alternatives were discussed with the patient, the patient agreed to proceed with the procedure and signed the consent. Patient was taken to the OR and time out was completed. The patient was placed in the prone position on the procedure table. A pillow was placed under the patients chest to increase the flexion of the cervical spine . The cervical area was prepped and draped in the usual sterile fashion. Vital signs were closely monitored during the procedure. Conscious sedation was used during the procedure to decrease patients anxiety. Using anterior-posterior fluoroscopy, the C6-7interlaminar space was identified and the skin over this site was marked and then infiltrated with 1% lidocaine subcutaneously. Subsequently, a 20-gauge 3-1/2-inch Tuohy epidural needle was inserted and advanced toward the epidural space by means of loss of resistance to air technique and guided by AP and lateral fluoroscopy. The needle tip contacted the lamina of the C7 vertebra first, then it was walked off bone and into the epidural space using the loss of to air and fluoroscopic guidance to identify the epidural space. The correct needle position in the epidural space was verified with the injection of 1 mL of the water soluble contrast dye Isovue and observing an excellent epidurogram with the epidural spread of the dye, after negative aspiration for blood and CSF and in the absence of paresthesias. Again after negative aspiration, a 2 ml mixture containing 10 mg of Decadron and 1 ml of preservative free Normal Saline solution was injected an d a washout of epidurogram was seen. Needle was withdrawn intact, skin was cleansed, and bandages were applied. A copy of the needle placement picture was saved to the fluoroscopy machine.
[2021-05-11 13:51] VITALS: BP 148/96; PULSE 77
--- NOTE | 2021-05-11 14:21 | FL ---
EXAMINATION TYPE: FL guided pain mgmt statistic DATE OF EXAM: 05/11/2021 CLINICAL HISTORY: Neck pain. TECHNIQUE: Fluoroscopy. COMPARISON: None. FINDINGS: Fluoroscopic guidance was provided during pain relief procedure performed by Dr. Mares . A total of 9 seconds of fluoroscopic time was utilized during the procedure and 1 spot images are a cquired. Single image acquired shows needle localization at the cervical thoracic junction. IMPRESSION: As Above.
== END 2021-05-11 13:59 | disposition home or self-care (01) ==
LOC: ORPAIN 11:58
PROVIDERS: ATTEND Anesthesiology
DX: M47.22 Other spondylosis with radiculopathy, cervical region (principal); F41.9 Anxiety disorder, unspecified
CPT/HCPCS: 62321; 64490; J1100; Q9966

== ENCOUNTER → 2021-07-14 | Outpatient (CLI) | payer OTHER | END | disposition home or self-care (01) | LOC: LABPAT 15:57 | PROVIDERS: ATTEND Orthopaedic Surgery | DX: Z01.812 Encounter for preprocedural laboratory examination (principal); M50.122 Cervical disc disorder at C5-C6 level with radiculopathy; M50.123 Cervical disc disorder at C6-C7 level with radiculopathy | CPT/HCPCS: 87070 ==

== ENCOUNTER 2021-07-18 08:54 | Day surgery (SDC) | payer OTHER ==
[2021-07-14 15:53] VITALS: BMI 41.8
[~2021-07-18 08:54] MED LIST changes: +ACETAMINOPHEN TAB 500 MG TAB PO PRN; +GABAPENTIN 300 MG CAP PO PRN; +HYDROmorphone 0.5 MG/0.5 ML SYRINGE IVP PRN; +LIDOCAINE 1% (10MG/ML) FOR IV START INTRADERMA PRN; +ONDANSETRON 4 MG/2 ML VIAL IVP ONE; +ONDANSETRON 4 MG/2 ML VIAL IVP PRN; +ceFAZolin 3 GM in SODIUM CHLORIDE 0.9% 100 ML IVPB PRN
[2021-07-18 09:35] LABS: Glucose,Whole Blood 158 mg/dL (75-99)
--- NOTE | 2021-07-18 10:14 | P.HPOR ---
History of Present Illness H&P Date: 07/10/21 Chief Complaint: LUE radiculopathy, LUE weakness Date of :[birth year] R14Age: 46 year Height: 6'2" Weight: 290 lbs BP:130/86 BMI: 37.23 kg/m2 Occupation: [employer] (currently off) VAS: 7 CHIEF COMPLAINT: Neck pain HISTORY: Xrays brought xrays from outside facility which were reviewed, No new xrays taken in office Trauma or injury yes Work-Related yes Pain description Aching when laying, sharp with any movement. Location diffuse Activity Modification yes , unable to perform bending/lifting/twisting jelena ons. Hand Dominance right DOI: 05/07/2020 DOS: None TREATMENTS COMPLETED: 6 weeks of PT completed? No, PT was denied this by workers comp. He has done therapy in the past for this Physician directed home exercise completed? yes Medications yes List: Motrin 800mg, mild improvements to his symptoms. Alternative interventions Chiropractic?: No Brace: No Injections Yes How many? 2 Did they help? No RFA: No SUBJECTIVE: Today the patient presents to the office for a pre-op evaluation of his cervical spine. Since the time of the last appointment he notes that his symptoms have continued to persist. He notes that his symptoms have continued to bring him great difficulty and has failed to improve with all conservative treatments tried thus far. Additionally, he notes that since the last appointment the anterior side of the left thigh has become increasingly numb. He states that he has lost most feeling in this area and this feeling has been constant with no waning of this symptom. Overall he notes that his daily functionality has been very limited secondary to his pain and symptoms. Otherwise all questions and concerns were answered and he wishes to proceed with the planned procedure. HPI: Mr. Villavicencio last presented to the office on 06/02/2021 for a follow up evaluation of his neck pain. Since the time of the last appointment the patient he notes that he did complete the EMG ordered at the time of the last visit. Regarding his symptoms he notes that they have not improved in any capacity. Overall he notes that he has failed to improve with conservative treatments tried thus far. His daily functionality has continued to deteriorate, noting that he is not active at all anymore. Patient denies completing any new treatment modalities since the time of the last appointment. The patient last presented to the office on 04/05/2021 regarding his neck pain. Since the time of the last appointment the patient he notes that he was not able to start PT because it was denied by workers comp. Along with this, he was not able to get an FARHEEN injection into the painful aide because this was denied by workers comp as well. He does state that he has been doing home exercises r egularly with no improvements to his symptoms. Additionally he has been taking Motrin 800mg regularly with only mild, temporary improvements to his symptoms. Regarding his symptoms the patient notes that they have not changed since the time of the last appointment. He still notes pain in the center of the neck that limits his movement and is associated with weakness. Mr. Villavicencio reports having an inability to lift any significant amount of weight due to the severity of his symptoms. Overall he notes that his daily functions are limited due to his symptoms. Mr. Villavicencio was last seen on 03/06/2021 regarding neck pain. To review, at the time of the last appointment the patient reports having increased pain once again. This came about after injuring his neck at work again (date not specified). Since this he has noticed increased pain about the neck diffusely. The pain will increase with and bending/lifting/twisting movements and the patient is unable to complete many of his daily functions due to the severity of the pain. He denies having any recent treatments for the pain. Patient does not present to the office with the use of any ambulatory aides and is otherwise doing well. Patient previously returned on 10/27/2020 for a follow up of his C5-7 disc herniation. He had a injection 10/18/2020 with great relief. Patient noted minor stiffness he denies pain. Patient takes Ibuprofen 800mg as needed. He is currently off work. The patients' past social, medical, family, surgical history, as well as review of systems, have been reviewed. Please refer to the Neurosurgery History and Physical form that has been scanned in to our electronic medical record system. 14 points review of systems completed and as stated in HPI, all other systems reviewed are negative. Review of Systems All systems: negative Constitutional: Reports as per HPI Past Medical History Past Medical History: Coronary Artery Disease (CAD), Diabetes Mellitus, GERD/Reflux, Hearing Disorder / Deafness, Hyperlipidemia, Hypertension, Osteoarthritis (OA), Pneumonia, Sleep Apnea/CPAP/BIPAP Additional Past Medical History / Comment(s): Heart murmur. Sl [place]. Cervical disc disease. No CPAP used. History of Any Multi-Drug Resistant Organisms: None Reported Past Surgical History: Heart Catheterization, Tonsillectomy Additional Past Surgical History / Comment(s): Cardiac Cath approx. 2011, stress test x2, colonoscopy with EGD , PA[facility] PROCEDURES Past Anesthesia/Blood Transfusion Reactions: No Reported Reaction Past Psychological History: Anxiety, Bipolar, Depression, PTSD, Schizophrenia Additional Psychological History / Comment(s): PTSD from tours in [place] Smoking Status: Never smoker Past Alcohol Use History: Rare Past Drug Use History: None Reported - Past Family History Mother Family Medical History: Cancer Additional Family Medical History / Comment(s): lymphoma Father Family Medical History: Hypertension Medications and Allergies Home Medications Medication Instructions Recorded Confirmed Type FLUoxetine HCL [PROzac] 60 mg PO DAILY 10/13/20 07/14/21 History Losartan Potassium [Cozaar] 100 mg PO QAM 10/13/20 07/14/21 History OXcarbazepine [Trileptal] 450 mg PO BID 10/13/20 07/14/21 History Omeprazole 40 mg PO QAM 10/13/20 07/14/21 History Pioglitazone HCl 15 mg PO QAM 10/13/20 07/14/21 History QUEtiapine [SEROquel] 50 mg PO HS 10/13/20 07/14/21 History amLODIPine [Norvasc] 10 mg PO QAM 10/13/20 07/14/21 History atenoloL 25 mg PO QAM 10/13/20 07/14/21 History Ibuprofen [Motrin] 800 mg PO Q8H PRN 05/09/21 07/14/21 History Acetaminophen [Tylenol Arthritis] 1,300 mg PO DIRECTED PRN 07/14/21 07/14/21 History Crestor (Unknown Dose) 1 tab PO HS 07/14/21 07/18/21 History Empagliflozin [Jardiance] 10 mg PO DAILY 07/14/21 07/14/21 History Ergocalciferol [Vitamin D2 (1250 1,250 mcg PO MO 07/14/21 07/14/21 History Mcg = 59345 Iu)] Allergies Allergy/AdvReac Type Severity Reaction Status Date / Time ketorolac [From Toradol] AdvReac Nausea Verified 07/14/21 15:30 Physical Examination Osteopathic Statement: *. No significant issues noted on an osteopathic structural exam other than those noted in the History and Physical/Consult. PHYSICAL EXAMINATION: General: Awake, alert, appropriate for age, in no acute distress. HEENT: No unusual neck masses around region of lateral neck triangle, thyroid, supraclavicular groove Heart: Regular rate and rhythm, normal S1, S2 and no murmur/gallop. Lungs: Clear to auscultation bilaterally with no use of accessory muscles. Extremities: Skin warm and dry without acute lesions, coloration, temperature, skin intact, no tenderness or erythema Integument: Hairy patches: Absent Dorsal skin dimples: Absent Cafe au lait spots: Absent Surgical incisions: No Palpation: Please see Pain drawing on Intake sheet for further detail. Midline spinal tenderness: No E6 Paralumbar tenderness: No E6 Parathoracic tenderness: No E6 Buttocks tenderness: No E6 Special findings: cervical ttp post, mild POSTURAL and MUSCULO-SKELETAL EVALUATION: Coronal Balance: NEUTRAL Recumbent testing: Patient is able to lay flat on back Sagittal Balance: NEUTRAL Shoulder Profile: LEVEL Pelvic Girdle: LEVEL Neck ROM: RESTRICTED Lumbar ROM: UNRESTRICTED Shoulder ROM: Symmetrical Hip ROM: Symmetrical Knee ROM: Symmetrical Hands: Normal appearance, symmetrical Feet: Normal appearance, Symmetrical VASCULAR STATUS : LEFT RIGHT Wrist Pulses INTACT INTACT Pedal Pulses (Dors. pedis & post.tibialis) INTACT INTACT Color NORMAL NORMAL Edema Absent Absent NEUROLOGIC EXAMINATION: Mental Status:Awake and alert, fully oriented, with normal attention, concentr ation and memory, and fluent, appropriate speech. Cranial Nerves: I: Olfactory not tested. II: Visual acuity normal, no visual field deficit noted with confrontation. III,IV: Normal pupillary reflexes & intact extraocular movements without nystagmus. V,: Intact symmetrical facial sensation. VII: Intact symmetrical facial motor movement VIII: Hearing intact. IX,X: Intact gag, swallow, & normal voice. XI: Sternocleidomastoid, trapezius function intact. XII: Tongue midline with normal movements. L'hermitte's Sign: Negative / absent Spurling'Sign: Absent bilaterally. Cubital percussion test: Absent bilaterally. Melva-Tinel sign - Carpal region: Absent bilaterally. Straight Leg Raising: Absent bilaterally. Crossed straight leg raise: negative O8 MOTOR EXAM (0-5/5, N/T) STRENGTH RIGHT LEFT Shoulder Abd (not part of the MARLENI score) 5 5 Elbow Flexors 5 4+ Elbow Extensor 4+ 4+ Wrist Dorsiflexors 5 5 Finger Abductor 4+ 5 Billing Checker 4 4+ Hip Flexor (Not part of MARLENI Motor score) 5 5 Knee Flexor 5 5 Knee Extensor 5 5 Ankle dorsiflexor 5 5 Ankle plantarflexion 5 5 Extensor hallucis 5 5 REFLEXES(0-4/2, NT) RIGHT LEFT Upper Extremities 3 2 Lower Extremities 2 1 Pathological Reflexes RIGHT LEFT Oconnor's Present Absent Clonus Absent Absent Babinski Absent Absent # Indicates mechanical impairment Muscle appearance: Symmetrical, without signs of atrophy or dystrophy. Sensory system (0-4, N/T) Test type RU SHASHA RL LL Joint-Position 2 2 2 2 Vibration 2 2 2 2 Pain & LT sense 2 2 2 2 Dermatomal Deficit: C6-7 C6-7 None None Gait and Functional Evaluation: Ambulatory aids: Independent Romberg's test: Intact bilaterally Toe heel walk / heel-toe walk intact while maintaining satisfactory balance? yes Squatting/straightening w/o assistance to a min of 60 degree knee flexion? yes Single leg stance: intact Trendelenburg sign negative bilaterally Hand and finger dexterity intact bilaterally? yes Disdiadochokinesis examination negative bilaterally? yes Results XRay taken on 03/06/21 of Cervical was reviewed by Dr. Merida and indicates: no acute interval changes no fractures or dislocations at this time overall alignment fairly well maintained patient's body habitus precludes some of the visualization. Occipital cervical C1 2 joints appear stable this is again reviewed patient has a herniated disc at C6-C7 which is causing moderate to severe stenosis in this area he could have flared this up with his recent injury however this was present prior as well. MRI is reviewed again there is disc herniation at C5, C6, C7 this is causing moderate to severe stenosis. - Labs Labs: Abnormal Lab Results - Last 24 Hours (Table) 07/18/21 Range/Units 09:33 POC Glucose (mg/dL) 158 H (75-99) mg/dL Assessment and Plan Assessment: 1. C6-C7 herniated nucleus pulposus 2. Left upper extremity radiculopathy and weakness 3. Neck pain 4. C5-C7 Stenosis 5. Obesity 6. Left lower extremity radiculopathy Plan: 1.Discussed the need for surgical intervention of a C5-C7 TDR. Patient has failed to improve with any conservative treatments and his daily functionality has continued to deteriorate. All risks and benefits of the procedures were discussed and the patient expressed understanding. Additionally all questions and concerns were answered. The patient wishes to proceed with a C5-C6, C6-C7 Total Disc Replacement. 2. The patient should remain off work until notice is given from this office. Spine Surgery Risk Review Prem Villavicencio is a 46 y/o white male presenting for evaluation of cervical pain with bilateral uppr extremity weakness and radiculopathy. It was my pleasure to have seen and examined Prem Villavicencio. In our visit today we have had a chance to go over subjective complaints, physical examination findings and treatments including the natural course history without intervention and various interventional options. The patients imaging demonstrates xrays: no acute interval changes no fractures or dislocations at this time overall alignment fairly well maintained patient's body habitus precludes some of the visualization. Occipital cervical C1 2 joints appear stable. this is again reviewed patient has a herniated disc at C6-C7 which is causing moderate to severe stenosis in this area he could have flared this up with his recent injury however this was present prior as well. MRIs demonstrate: again there is disc herniation at C5, C6, C7 this is causing moderate to severe stenosis. On physical exam, Prem Villavicencio demonstrates bilateral upper extremity weakness and radiculopathy. I have explained to the patient that as their condition progresses it will cause further neurological deficits and eventual paralysis. Based on the patients imaging, physical exam, and the rapid progression and disabling nature of their symptoms, at this time I recommend surgery in the form or a: C5-C6, C6-C7 Total Disc Replacement. I discussed the risk and benefits of this procedure at length with Prem Villavicencio. The patient and his spouse agreed to considered pursuing the procedure abovementioned. Prior to surgery, she should follow up with her PCP (Cardio, ID, IM etc) for clearance. Questions were invited and answered, and the patient wishes to proceed as outlined below. Currently, I am recommendin.C5-C6, C6-C7 Total Disc Replacement 2.Follow up with PCP for surgical clearance 3.Review of surgical risks and benefits as well as an educational packet on the proposed surgical procedure. Risks: All surgical procedures come with inherent risks, including those related to positioning, anesthesia, intraoperative findings, and postoperative complications. It is important to understand that surgery does not come with any guarantee of a successful outcome as complications and adverse events are always possible. The patient was given a handout in office today discussing the surgical procedure and risks associated with the intervention, both of which were discussed with the patient. These risks include but are not limited to the following: * Experiencing same, different or even worse symptoms in back, neck, arms, or legs compared to before surgery. Requiring further surgery or other forms of treatment presently or at some time in the future at same or other levels of the intended spine surgery. On an extreme but fortunately relatively rare basis severe complication such as blindness, stroke, heart attack, temporary and/or permanent nerve injury, paralysis, coma, or may occur, sometimes without known explanation. Surgical complications may include but are not limited to risk of infection, fluid accumulation in the surgical dissection site, including a se yeny or hematoma, that requires additional surgery, wound drainage, bleeding, new numbness or weakness, vision changes/loss, spinal fluid leakage, non-healing and/or infected incision, headaches, difficulty or inability to swallow, hoarseness, hemopneumothorax, pneumothorax, impotence, retrograde ejaculation, vaginal dryness; injury to nerves, spinal cord, blood vessels, lymphatics or other vital organs (i.e., bowel injury, injury to the great vessels); heterotopic bone formation; complications related to the hardware such as screws, rods, cages including misplaced hardware, device failure, in strumentation at the wrong spine level, hardware fracture/breakage, or hardware loosening; vertebral failure of the spinal column above or below the newly placed hardware; retained surgical instrumentations or devices and the need for further surgery. * Medical risks of the planned spine surgery include but are not limited to generalized Infections to the whole body or local areas outside of the surgical site (sepsis), heart attack, bleeding, anaphylaxis, meningitis, seizure, epilepsy, hearing loss, burn schmitz, laceration of the head or other areas of the body, bruising, hypersensitivity of the skin, bladder over distension; allergic reaction; shoulder injury related to positioning; fat, blood and air clots to other areas of the body like heart, lungs, brain; failure of internal organs such as lungs, kidneys, liver and excessive bleeding. If blood transfusions are necessary, note that transfusions may cause intolerance reactions such as anaphylaxis or other complex reactions. Despite best efforts, the results of spine surgery might not heal in terms of bone, soft tissues such as skin, fascia, ligaments, and joints. Additionally, in order to achieve best possible results, spine surgery may be carried out beyond the initially planned levels and involve decompression, fusion including insertion of hardware at levels other than the original intended area of surgical interest change some portions of the procedure in order to ensure the best possible outcomes. With spine surgery and spinal fusion, there are different off label uses of instrumentation (devices, implants and hardware) as well as biological substances (bone morphogenic proteins, demineralized bone matrix) as well as using extra bone from allograft sources (i.e. cadaver bone) or autograft (iliac crest bone, ribs, or the spine itself). The patient has been given information about these practices and their inherent risks and benefits. [facility] is an educational center that serves as a training facility for neurosurgical and orthopedic spine residents and fellows. Residents are physicians who are completing their surgical intensive training following medical school. They assist in the operating room with direct supervision of the attending surgeons. Kirk are surgeons who have completed their training and eligible for board certification. They have opted for an elective year of more specialized training in their field. They assist in the operating room under the supervision of the attending surgeons. Physician assistants are medically trained surgical providers who function in the outpatient, inpatient, and operating room setting under the direct supervision of the attending surgeon. [facility] has multiple operating rooms with single and overlapping jairo ms running daily. They currently function under the required guidelines as produced by the [facility] [employer] [facility] with regards to the overlapping rooms and will continue to comply with changes to this policy as they occur. The requirements include and are complied with as follows: (1) the critical portions of the overlapping rooms will not occur at the same time, (2) the attending physician will be physically present during the critical portions of the procedure and immediately available during the entire case, and (3) a back-up attending is designated should the primary attending not be immediately available. The patient has had a chance to review all the listed information, has been given print outs detailing this information, and has had all his/her questions answered to their satisfaction. It was my pleasure to have seen and examined Prem Villavicencio. In our visit today we have had a chance to go over my understanding of our patient's current condition, the natural course history without intervention and various interventional options. Questions were invited and answered, and the patient wishes to proceed as outlined above. I have seen and examined the patient for 25 minutes and we have spent more than 50% of the time in repeat and detailed counseling about the patient's condition, its natural course history with out and as much as can be predicted with surgery and re-review of various surgical treatment options. In conclusion, Prem Villavicencio and his spouse requested we proceed with the above suggested surgery and are willing to accept risks and limitations of the suggested surgery as nature of the disease process and our best attempts at treatment for the condition. Thank you again for allowing us to be part of your patient's care. Please don't hesitate to contact me if you have any further questions. Signed and authenticated by: [employer] P:\\\\ppart\\\\Files\\\\L [id number]\\\\[id number]\\\\[id number]\\\\[id number]\\\\[id number]\\\\[id number]\\\\[id number] \\d Nicho [facility] [address], [address] [address]
[2021-07-18] MEDS ORDERED: DEXMEDETOMIDINE/0.9% NACL(PMX) 400 MCG in EMPTY BAG 1 BAG IV SCH (10:15)
[2021-07-18] MEDS ORDERED: ACETAMINOPHEN IV (For NPO) 1,000 MG/100 ML VIAL ONE (10:43)
[2021-07-18] MEDS ORDERED: fentaNYL (PF) 50 MCG/ML 2 ML AMP ONE (10:43)
[2021-07-18] MEDS ORDERED: PHENYLEPHRINE-0.9% NACL SYG 1,000 MCG/10 ML SYRINGE ONE (10:43)
[2021-07-18] MEDS ORDERED: DEXAMETHASONE SOD PHOSPHATE 10 MG/ML 1 ML VIAL ONE (10:43)
[2021-07-18] MEDS ORDERED: PROPOFOL 10 MG/ML 20 ML VIAL IV ONE (10:43)
[2021-07-18] MEDS ORDERED: LIDOCAINE 1% INJ 10MG/ML (20 ML MDV) ONE (10:43)
[2021-07-18] MEDS ORDERED: SUCCINYLCHOLINE CHLORIDE VIAL 200 MG/10 ML VIAL IV ONE (10:43)
[2021-07-18] MEDS ORDERED: MIDAZOLAM 2 MG/2 ML VIAL ONE (10:43)
[2021-07-18] MEDS ORDERED: LACTATED RINGERS 1,000 ML IV ONE ×2 (11:15→14:18)
[2021-07-18] MEDS ORDERED: GELATIN SPONGE,ABSORB (LARGE) 1 EACH SPONGE TOPICAL ONE (11:34)
[2021-07-18] MEDS ORDERED: THROMBIN (BOVINE) 5,000 UNIT VIAL TOPICAL ONE (11:34)
[2021-07-18] MEDS ORDERED: HYDROcodone/APAP 10-325MG 1 EACH TAB PO PRN (14:40)
[2021-07-18] MEDS ORDERED: HYDROmorphone 0.5 MG/0.5 ML SYRINGE IVP PRN (14:40)
[2021-07-18] MEDS ORDERED: CYCLOBENZAPRINE 5 MG TAB PO PRN (14:40)
[2021-07-18] MEDS ORDERED: HYDROcodone/APAP 5-325MG 1 EACH TAB PO PRN (14:40)
[2021-07-18] MEDS ORDERED: SENNOSIDES-DOCUSATE SODIUM 1 EACH TAB PO PRN (14:40)
--- NOTE | 2021-07-18 14:44 | FL ---
EXAMINATION TYPE: FL guidance operating room, XR cervical spine limited DATE OF EXAM: 07/18/2021 CLINICAL HISTORY: Neck pain. TECHNIQUE: Fluoroscopy. Intraoperative limited view cervical spine. COMPARISON: Cervical spine MRI August 02, 2020. FINDINGS: Fluoroscopic guidance was provided during cervical fusion procedure performed by Dr. Joana gunter. A total of 44 seconds of fluoroscopic time was utilized during the procedure and 11 spot imag es was acquired. Images were acquired show partial visualization of endotracheal tube with advancemen t of surgical hardware and placement of metallic endplate disc material after discectomy at C5-C6 and C6-C7 level in the cervical spine. IMPRESSION: As Above.
[2021-07-18 14:52] VITALS: TEMP 97
[2021-07-18 14:57] LABS: Glucose,Whole Blood 207 mg/dL (75-99)
[2021-07-18] MEDS ORDERED: INSULIN ASPART (NovoLOG) 100 UNIT/ML VIAL SQ ONE (15:36)
[2021-07-18 17:03] VITALS: RESP 18
[2021-07-18] MEDS ORDERED: HYDROcodone/APAP 5-325MG 1 EACH TAB PO ONE (17:10)
--- NOTE | 2021-07-18 17:34 | P.PN ---
Progress Note - Text Progress Note Date: 07/18/21 Spoke with nursing over the phone. Pt is doing very well and wants to go home. Per nursing he is voiding, tolerating oral intake with pills and able to swallow, he is maintaining O2 sats around 92 on RA which is more than he normally is at home which is around 88. His pain is controlled. He is moving all 4 ext. At this point the patient does not want to stay in the hospital so we will have anesthesia assess him one last time for his lower sats and make sure he is stable for home. If he is OK per their assessment and Phase 2 nursing assessments for home with self care then he is OK to go home with follow up and appropriate DC meds and instructions in the chart.
[2021-07-18] MEDS ORDERED: ACETAMINOPHEN TAB 325 MG TAB PO SCH (18:00)
[2021-07-18] MEDS ORDERED: ceFAZolin 3 GM in SODIUM CHLORIDE 0.9% 100 ML IVPB SCH (19:00)
--- NOTE | 2021-07-18 19:36 | P.PN ---
Progress Note - Text Progress Note Date: 07/18/21 Mr. Villavicencio is a 46-year-old male with a history of morbid obesity, hypertension, high cholesterol, coronary artery disease,STOP BANG questionnaire total 7 out of 8 . Status post anterior cervical discectomy and fusion at C5-C6, and C6-C7 levels. Per patient he maintains 88-89% on room air at home. Had extensive discussion with the patient regarding problems with low saturation including pulmonary hypertension, right heart failure, stroke, and sudden . As per patient her primary care physician want to evaluate him for obstructive sleep apnea. But currently patient is not using any CPAP machine at home at home. Per patient he recently gained 40 pounds weight. After a lengthy discussion with the patient that patient is not meeting the discharge criteria to go home, if patient stated in the hospital overnight he may receive CPAP machine if needed during the sleep but patient wants to go home against medical advice. Patient is well aware about CPAP as his father was using. During the rest sometimes his saturation going to 85% on room air. But with incentive spirometry his saturations coming back to 90-92% on room air. Patient was strongly encouraged to do incentive spirometry every 15 minutes for at least 2-3 minutes. Despite of strong recommendation not to go home tonight, but patient wants to go home AGAINST MEDICAL ADVICE. Patient family advised to monitor Mr. Villavicencio SpO2 during the sleep, if noticed issues recommended to call 911 to bring him to the hospital emergency. And also advised family to make sure using incentive spirometry as advised. Patient was given information for long-term weight loss programs ( including intermittent fasting, low-carb 20-50 grams diet, keto diet options). As per patient he had hard time to get the prescription for sleep study evaluation. Patient was given a prescription for evaluation and treatment for his high risk obstructive sleep apnea as STOP BANG questionnaire total score 7 out of 8. Once sleep study done, patient can follow up with his primary care physician for appropriate CPAP machine.
[2021-07-18 19:55] VITALS: BP 128/80; PULSE 75
--- NOTE | 2021-07-19 08:15 | P.OP ---
Date of Procedure: 07/18/21 Preoperative Diagnosis: 1. LUE weakness 2. LUE radiculopathy 3. C5-6 and C6-7 large HNP with central and foraminal stenosis 4. Mechanical neck pain Postoperative Diagnosis: 1. LUE weakness 2. LUE radiculopathy 3. C5-6 and C6-7 large HNP with central and foraminal stenosis 4. Mechanical neck pain Procedure(s) Performed: 1. Anterior right sided Harris-Roberton approach 2. C5-6 total disc replacement 3. C6-7 total disc replacement 4. Use of intraoperative neuromonitoring 5. Interpretation of intraoperative flouroscopy <1 hr Implants: Pro Disc C Large Deep 6 mm x2 Anesthesia: GETA Surgeon: Nicho Gibson Translator Interpreter #1: Jitendra Magana (Was present and necessary due to the complexity of the case) Estimated Blood Loss (ml): 80 IV fluids (ml): 2,000 Urine output (ml): 350 Pathology: none sent Condition: stable Disposition: PACU Indications for Procedure: 46 yo male with a history of DM, controlled as well as PTSD and depression has been followed by the [facility] for some time now. He originally hurt his neck at work and went through conservative treatments which did help him for a time to feel better. He was found to have two large HNP at C5-6 and C6-7. He underwent injections, PT, HEP and medications which originally helped him for a time. He returned to work and re-injured the area again with increased symptoms compared to previously with more LUE weakness and radiculopathy. Repeat imaging showed that he continued to have large HNP at C5-6 and C6-7 which were essentially operative in nature. Due to his sx continuing and this new injury with no lasting improvement with conservative measures we discussed at length different treatment options for the patient. We went over conservative measures as well as surgical and the different surgical options. Ultimately, we concluded that due to his pathology, sx, history, and goals that total disc replacements were the best option for treatment. He agreed and wants to proceed with this treatment strategy. Consent was confirmed, site was marked all questions answered. Pt willing to proceed with procedure. Description of Procedure: The patient was seen and examined in the preoperative area. All preoperative protocols were followed. Informed consent was obtained risks and benefits of the procedure were discussed at length. Risks including bleeding infection damage to the surrounding tissue and risk of reoperation were discussed with the patient. Risk of anesthesia up to and including was a discussed with the patient. These are outlined in the risk review. They were willing to accept these risks and all of the risks of surgery. The patient was given a weight- based dose of antibiotics in the form of 2g Ancef. The patient was seen and evaluated by the anesthesia team who deemed them fit for surgery. The site was marked, the patient was willing to proceed with the procedure. The patient was transferred to the operative suite by the Department of anesthesia. They were then drifted off to sleep by the department anesthesia and GETA was performed. The patient tolerated this well. Peterson catheter was placed by nursing staff, atraumatically. Once confirmation of lines and ventilation the patient was transferred to a Supine flat top trios table. Arms were well padded and tucked at the patients side. Shoulder rolls were placed. The patient's shoulders were gently taped down with 3" tape. All bony prominences including wrists, elbows, axilla, chest, hips, and thighs, and feet were padded very well. Special attention was paid to the genitalia and these were padded accordingly. SCDs were placed on bilateral lower extremities and were connected. Arms were well padded and placed At the patient's side. Once in position, again we confirmed good ventilation capabilities and that lines were running appropriately. The patient's Anterior cervical spine was then exposed. 1010s were placed outlining the incision site. Standard alcohol was used to clean the incision site and allowed to dry. C-arm was used to biomark the patient and confirm level for incision which was marked with a skin marker. Operative briefing was performed with all teams and everyone in agreement to proceed. The patient was then prepped and draped in a normal sterile fashion. Timeout was then performed and all parties were in agreement with the procedure to be performed. Transverse skin incision was made over the previously biomarked area with a skin knife. Standar Harris Oswald approach to the anterior cervical spine on the right was performed. Once the anterior spine was identified and cleared of deep fascia, a blunt probe was used to erlin levels on lateral flouroscopy. We then elevated longissiumus muscles on either side and placed our self retaining retractor and secured it to the bed. Once levels were marked we proceeded with placement of caspar pins into C6 and C7 parallel to the endplates and in good position for keel. We then used sarah rongure to release the anterior disc and clean osteophytes. We then inserted an [place] cranberry bog supervisor and gently spread the disc spaces and opened the distractor to meet this so as to eliminate undue pressure on the pins. We then proceeded with complete discectomy uncus to uncus along with burring of the posterior osteophytes and decompression of bilateral foramen. We encountered a large disc herniation on the LSH which was entirely removed. We used kerrison rongures and 6-0 curette to release PLL and decompress spine. Once decompression was complete and all disc material removed as well as endplate cartilage we preformed minimal endplate burring to even the surface to accept implant. We then sized for a LD size and confirmed its position on AP and lateral imaging. We then burred and chiseled the jamie in position. The template was removed and the implant was inserted. Motors run before and after showed no changes. We performed meticulous hemostasis with hemostatic agents and bone wax on open bone surfaces. We then removed the distractor and caspar pin from C7 andplaced bone wax in its void. The retractor was repositioned around C5-6. Under lateral imaging we placed a caspar pin in C5 parallel to endplate and proceeded. Turning our attention to C5-6 the discrator was placed over the caspar pins and a sarah rongure used to release the disc. We then plated an [place] cranberry bog supervisor in the space and gently spread parallel. We then opened the distractor to meet this. We then performed complete discectomy from uncovertebral joint to uncovertebral joint. We scraped endplates of any cartilage using curettes. We used a high-speed bur to remove posterior osteophytes and revealed PLL. As a large disc herniation on the left-hand side at C5-C6 as well 60 curet and Kerrisons were used to release the PLL. We then performed bilateral foraminotomies using Kerrison and curet. Disc herniation was removed entirely. There was good decompression and good hemostasis. We will perform minimal endplate burring to level the endplates. We then placed the sizer for a large deep. This is confirmed to be in good position on AP and lateral fluoroscopy. We then burred and chiseled the jamie. The trial was then removed and the implant was impacted into place under lateral fluoroscopy. Once in good position motors were run and there is no changes. We again performed meticulous hemostasis and placed bone wax over open bone areas. [place] pins were then removed and bone wax placed in the void. Thoroughly irrigated the wound with normal sterile saline. Final AP and lateral fluoroscopy showed good placement of hardware with good decompression. We then placed Surgicel deep within the wound. We then performed layer closure first of the platysmal layer with 3-0 Vicryl followed by the subcu layer with 3-0 Vicryl followed by subcuticular running 40 strata fix. The wound was then cleaned and dressed sterilely with glue and an operative foam dressing. The patient was transferred back to their hospital bed atraumatically. Patient was then awakened and extubated by the department of anesthesia having tolerated the procedure very well with no complications. They were transferred to the postoperative care unit in stable condition.
== END 2021-07-18 20:00 | disposition left against medical advice (07) ==
LOC: OR 08:54 → 5NMEDONC 14:33 → OR 20:00
PROVIDERS: ATTEND Orthopaedic Surgery
DX: M48.02 Spinal stenosis, cervical region (principal); M54.12 Radiculopathy, cervical region; I10 Essential (primary) hypertension; E11.9 Type 2 diabetes mellitus without complications; F43.10 Post-traumatic stress disorder, unspecified; E66.01 Morbid (severe) obesity due to excess calories; Z68.41 Body mass index [BMI] 40.0-44.9, adult; E78.2 Mixed hyperlipidemia; Z20.822 Contact with and (suspected) exposure to COVID-19; R01.1 Cardiac murmur, unspecified; I25.10 Atherosclerotic heart disease of native coronary artery without angina pectoris; F41.9 Anxiety disorder, unspecified; F20.9 Schizophrenia, unspecified; K21.9 Gastro-esophageal reflux disease without esophagitis; H91.90 Unspecified hearing loss, unspecified ear; M19.90 Unspecified osteoarthritis, unspecified site; Z87.01 Personal history of pneumonia (recurrent); G47.30 Sleep apnea, unspecified; Z98.890 Other specified postprocedural states; Z80.7 Family history of other malignant neoplasms of lymphoid, hematopoietic and related tissues; Z82.49 Family history of ischemic heart disease and other diseases of the circulatory system; Z79.84 Long term (current) use of oral hypoglycemic drugs; Z79.899 Other long term (current) drug therapy; Z88.5 Allergy status to narcotic agent
CPT/HCPCS: 86900; 86901; 86850; 87635; 72040; 22856; 22858; C1713; C1762; J2250; J0330; J1100; J0690; J2405; J2001; J3010; J0131; J2370; J2704; J1170

== ENCOUNTER 2021-07-26 06:32 | Emergency (ER) | payer OTHER ==
[2021-07-26 06:43] VITALS: BP 152/92; RESP 18; TEMP 97.5
[2021-07-26] MEDS ORDERED: ALBUTEROL NEBULIZED 2.5 MG/3 ML INHALATION STA (06:59)
--- NOTE | 2021-07-26 07:33 | ED ---
URI HPI - General Chief Complaint: Upper Respiratory Infection Stated Complaint: Cough, lightheaded Time Seen by Provider: 07/26/21 06:46 Source: patient Mode of arrival: ambulatory Limitations: no limitations - History of Present Illness Initial Comments: Patient is a 46-year-old male who presents with cough 1 week. Patient reports that he had cervical disc surgery 1 week ago and afterwards developed a cough. Patient has been coughing intermittently since and reports he is unable to cough up the phlegm. He states he feels short of breath during his coughing spells. Patient reports a headache from coughing very much. He denies fever, chills, s ore throat, runny nose, earache, chest pain and abdominal pain. Patient reports he was vaccinated COVID-19 in November 2020. He states that he took a COVID-19 test before surgery last week which was negative. He reports no recent sick contacts. - Related Data Home Medications Medication Instructions Recorded Confirmed FLUoxetine HCL [PROzac] 60 mg PO DAILY 10/13/20 07/14/21 Losartan Potassium [Cozaar] 100 mg PO QAM 10/13/20 07/14/21 OXcarbazepine [Trileptal] 450 mg PO BID 10/13/20 07/14/21 Omeprazole 40 mg PO QAM 10/13/20 07/14/21 Pioglitazone HCl 15 mg PO QAM 10/13/20 07/14/21 QUEtiapine [SEROquel] 50 mg PO HS 10/13/20 07/14/21 amLODIPine [Norvasc] 10 mg PO QAM 10/13/20 07/14/21 atenoloL 25 mg PO QAM 10/13/20 07/14/21 Ibuprofen [Motrin] 800 mg PO Q8H PRN 05/09/21 07/14/21 Acetaminophen [Tylenol Arthritis] 1,300 mg PO DIRECTED PRN 07/14/21 07/14/21 Crestor (Unknown Dose) 1 tab PO HS 07/14/21 07/18/21 Empagliflozin [Jardiance] 10 mg PO DAILY 07/14/21 07/14/21 Ergocalciferol [Vitamin D2 (1250 1,250 mcg PO MO 07/14/21 07/14/21 Mcg = 21918 Iu)] Previous Rx's Medication Instructions Recorded Cyclobenzaprine [Flexeril] 10 mg PO HS PRN #40 tab 07/18/21 Gabapentin 300 mg PO TID #90 cap 07/18/21 Sennosides/Docusate Sodium [Senna 1 each PO BID #20 capsule 07/18/21 Plus 8.6-50 mg Softgel] cefaDROXiL [Duricef] 500 mg PO Q12HR #20 cap 07/18/21 oxyCODONE HCL/ACETAMINOPHEN 1 tab PO Q4HR PRN #56 tab 07/18/21 [Percocet 5-325 mg] Albuterol Sulfate [Proair Hfa] 1 - 2 puff INHALATION Q4HR PRN 07/26/21 #8.5 gm Allergies Allergy/AdvReac Type Severity Reaction Status Date / Time ketorolac [From Toradol] AdvReac Nausea Verified 07/26/21 06:42 Review of Systems ROS Statement: Those systems with pertinent positive or pertinent negative responses have been documented in the HPI. ROS Other: All systems not noted in ROS Statement are negative. Past Medical History Past Medical History: Coronary Artery Disease (CAD), Diabetes Mellitus, GERD/Reflux, Hearing Disorder / Deafness, Hyperlipidemia, Hypertension, Osteoarthritis (OA), Pneumonia, Sleep Apnea/CPAP/BIPAP Additional Past Medical History / Comment(s): Heart murmur. Sl [place]. Cervical disc disease. No CPAP used. History of Any Multi-Drug Resistant Organisms: None Reported Past Surgical History: Heart Catheterization, Orthopedic Surgery, Tonsillectomy Additional Past Surgical History / Comment(s): Cardiac Cath approx. 2011, stress test x2, colonoscopy with EGD , [facility] PROCEDURES Past Anesthesia/Blood Transfusion Reactions: No Reported Reaction Past Psychological History: Anxiety, Bipolar, Depression, PTSD, Schizophrenia Smoking Status: Never smoker Past Alcohol Use History: Rare Past Drug Use History: None Reported - Past Family History Mother Family Medical History: Cancer Additional Family Medical History / Comment(s): lymphoma Father Family Medical History: Hypertension General Exam Limitations: no limitations General appearance: alert, in no apparent distress Head exam: Present: atraumatic, normocephalic, normal inspection Eye exam: Present: normal appearance, PERRL, EOMI. Absent: scleral icterus, conjunctival injection, periorbital swelling Neck exam: Present: normal inspection. Absent: meningismus, lymphadenopathy Respiratory exam: Present: normal lung sounds bilaterally. Absent: respiratory distress, wheezes, rales, rhonchi, stridor Cardiovascular Exam: Present: regular rate, normal rhythm, normal heart sounds. Absent: systolic murmur, diastolic murmur, rubs, gallop, clicks GI/Abdominal exam: Present: soft, normal bowel sounds. Absent: distended, tenderness, guarding, rebound, rigid Neurological exam: Present: alert, oriented X3, CN II-XII intact Psychiatric exam: Present: normal affect, normal mood Course Vital Signs 07/26/21 07/26/21 06:40 09:14 Temperature 97.5 F L Pulse Rate 87 80 Respiratory 18 Rate Blood Pressure 152/92 O2 Sat by Pulse 96 Oximetry Medical Decision Making - Medical Decision Making Physical [id number] male with a cough x1 week post-cervical disc surgery. Labs are unremarkable. Patient is COVID-19 negative.Chest x-ray shows no acute pulmonary process. Patient to be discharged with albuterol treatment. - Lab Data Result diagrams: 07/26/21 06:59 07/26/21 07:02 Lab Results 07/26/21 07/26/21 07/26/21 Range/Units 06:59 07:00 07:02 WBC 9.1 (3.8-10.6) k/uL RBC 4.77 (4.30-5.90) m/uL Hgb 14.1 (13.0-17.5) gm/dL Hct 42.3 (39.0-53.0) % MCV 88.7 (80.0-100.0) fL MCH 29.5 (25.0-35.0) pg MCHC 33.3 (31.0-37.0) g/dL RDW 13.4 (11.5-15.5) % Plt Count 249 (150-450) k/uL MPV 7.6 Neutrophils % 71 % Lymphocytes % 17 % Monocytes % 5 % Eosinophils % 5 % Basophils % 1 % Neutrophils # 6.5 (1.3-7.7) k/uL Lymphocytes # 1.5 (1.0-4.8) k/uL Monocytes # 0.5 (0-1.0) k/uL Eosinophils # 0.5 (0-0.7) k/uL Basophils # 0.1 (0-0.2) k/uL Sodium 139 (137-145) mmol/L Potassium 4.3 (3.5-5.1) mmol/L Chloride 101 (98-107) mmol/L Carbon Dioxide 33 H (22-30) mmol/L Anion Gap 5 mmol/L BUN 8 L (9-20) mg/dL Creatinine 0.66 (0.66-1.25) mg/dL Est GFR (CKD-EPI)AfAm >90 (>60 ml/min/1.73 sqM) Est GFR (CKD-EPI)NonAf >90 (>60 ml/min/1.73 sqM) Glucose 245 H (74-99) mg/dL Calcium 8.7 (8.4-10.2) mg/dL Total Bilirubin 0.4 (0.2-1.3) mg/dL AST 43 (17-59) U/L ALT 40 (4-49) U/L Alkaline Phosphatase 89 (38-126) U/L Total Protein 6.8 (6.3-8.2) g/dL Albumin 3.6 (3.5-5.0) g/dL Coronavirus (PCR) Not Detected (Not Detectd) - EKG Data EKG Comments: Normal sinus rhythm, incomplete right bundle branch block, septal infarct, age u ndetermined 87 bpm, MI interval 152 ms, QRS duration 96 ms, QT/QTc 394/474 ms Disposition Clinical Impression: Upper respiratory infection Disposition: HOME SELF-CARE Condition: Good Additional Instructions: Take medication as instructed. Follow-up with primary care for nebulizer. Report to the ER if chest pain or difficulty breathing. Is patient prescribed a controlled substance at d/c from ED?: No Referrals: Airam Pedro MD [Primary Care Provider] - 1-2 days
[2021-07-26 07:42] LABS: Basophils # (A) 0.1 k/uL (0-0.2); Basophils % (A) 1 %; Eosinophils # (A) 0.5 k/uL (0-0.7); Eosinophils % (A) 5 %; HCT 42.3 % (39.0-53.0); HGB 14.1 gm/dL (13.0-17.5); Lymphocytes # (A) 1.5 k/uL (1.0-4.8); Lymphocytes % (A) 17 %; MCH 29.5 pg (25.0-35.0); MCHC 33.3 g/dL (31.0-37.0); MCV 88.7 fL (80.0-100.0); Mean Platelet Volume 7.6; Monocytes # (A) 0.5 k/uL (0-1.0); Monocytes % (A) 5 %; Neutrophils # (A) 6.5 k/uL (1.3-7.7); Neutrophils % (A) 71 %; Platelet Count 249 k/uL (150-450); RBC 4.77 m/uL (4.30-5.90); RDW 13.4 % (11.5-15.5); WBC 9.1 k/uL (3.8-10.6)
[2021-07-26 07:56] LABS: ALT 40 U/L (4-49); AST 43 U/L (17-59); African American GFR (CKD) >90 (>60 ml/min/1.73 sqM); Albumin 3.6 g/dL (3.5-5.0); Alkaline Phosphatase 89 U/L (38-126); Anion Gap 5 mmol/L; Blood Urea Nitrogen 8 mg/dL (9-20); Calcium 8.7 mg/dL (8.4-10.2); Carbon Dioxide 33 mmol/L (22-30); Chloride 101 mmol/L (98-107); Glucose 245 mg/dL (74-99); Non-African American GFR(CKD) >90 (>60 ml/min/1.73 sqM); Potassium 4.3 mmol/L (3.5-5.1); Sodium 139 mmol/L (137-145); Total Bilirubin 0.4 mg/dL (0.2-1.3); Total Protein 6.8 g/dL (6.3-8.2)
[2021-07-26 09:17] VITALS: PULSE 80
--- NOTE | 2021-07-26 09:36 | XR ---
EXAMINATION TYPE: XR chest 2V DATE OF EXAM: 07/26/2021 COMPARISON: 02/24/2020 INDICATION: Short of breath, coughing TECHNIQUE: Frontal and lateral views of the chest are obtained. FINDINGS: The heart size is normal. The pulmonary vasculature is normal. The lungs are clear. Cervical disc spaces are present in the lower cervical spine. IMPRESSION: 1. No acute pulmonary process.
== END 2021-07-26 10:02 | disposition home or self-care (01) ==
LOC: EC 06:32
DX: J06.9 Acute upper respiratory infection, unspecified (principal); I10 Essential (primary) hypertension; E11.9 Type 2 diabetes mellitus without complications; E78.5 Hyperlipidemia, unspecified; K21.9 Gastro-esophageal reflux disease without esophagitis; M19.90 Unspecified osteoarthritis, unspecified site; I25.10 Atherosclerotic heart disease of native coronary artery without angina pectoris; Z88.6 Allergy status to analgesic agent; Z86.16 Personal history of COVID-19; Z20.822 Contact with and (suspected) exposure to COVID-19; Z79.899 Other long term (current) drug therapy; Z79.84 Long term (current) use of oral hypoglycemic drugs
CPT/HCPCS: 36415; 71046; 80053; 85025; 87635; 93005; 94640; 99284

== ENCOUNTER → 2021-09-06 | Outpatient (CLI) | payer OTHER ==
--- NOTE | 2021-09-06 17:17 | CONS ---
CONSULTATION DATE OF SERVICE: 09/06/2021 This 46-year-old gentleman has been evaluated in [facility] for possible obstructive sleep apnea-hypopnea syndrome. HISTORY OF PRESENT ILLNESS/SLEEP-WAKE EVALUATION: Patient's usual sleep schedule is from 4:30 a.m. until 10:30 or 11 a.m. basically 7 days a week. He has problems with falling asleep; has TV set in the bedroom. He usually sleeps on the side position. According to his , he has very loud snoring and witnessed episodes of stopped breathing during sleep. The patient wakes up from sleep 4 times with 3 episodes of nocturia. The patient has vivid dreams, kicking, grinding, [id number] movements, several episodes of falling out of bed. No history of hypnagogic hallucinations, sleep paralysis or cataplexy. [place] Sleepiness Scale is significantly increased to 14. He takes naps once or twice a day, usually in the afternoon. He feels restored after naps; may see vivid dreams during naps. PAST MEDICAL HISTORY: Positive for hypertension, hyperlipidemia, asthma, acid reflux, diabetes mellitus, anxiety, bipolar, posttraumatic stress disorder. PAST SURGICAL HISTORY: Disk replacement in the level C5-C7. MEDICATIONS: 1. Atenolol 25 mg once a day. 2. Omeprazole 40 mg once a day. 3. Losartan 100 mg once a day. 4. Amlodipine 10 mg once a day. 5. Fluoxetine 20 mg 3 times a day. 6. Ox pine 300 mg 1-1/2 tablet twice a day. 7. Quetiapine 50 mg once a day. 8. Motrin 800 mg as needed for neck pain. 9. Jardiance 10 mg once a day. 10.Rosuvastatin 10 mg once a day. 11.Pepcid 20 mg once a day. 12.Cyclobenzaprine 10 mg once a day. 13.Phentermine 37.5 mg once a day. SOCIAL HISTORY: Negative for smoking. Alcohol consumption occasional. FAMILY HISTORY: Snoring, heart problems, cancer, diabetes, mental illness. REVIEW OF SYSTEMS: Multiple awakenings from sleep, sleepiness, severe snoring. No fevers. No double vision. No recent chest pain. No shortness of breath. No abdominal pain. No bleeding episodes. No blood in the urine. No seizure episodes. PHYSICAL EXAMINATION: GENERAL: Pleasant gentleman without distress. VITAL SIGNS: BP 122/74, HR 92, RR 18, height 6 feet 1 inch, weight 326, body mass index 43, temperature 97.4, oxygen saturation at room air 92%. HEENT: PERRLA, EOMI, evaluation of oropharynx showed tongue protrudes midline. Low position of soft palate; Mallampati III to IV. NECK: Supple, no JVD. Thyroid is not palpable. Neck is wide; 22-1/4 inches in circumference. LUNGS: Clear to percussion and to auscultation. Good air exchange. No wheezing or rhonchi. HEART: S1, S2 regular. No murmurs, gallops, or rubs. ABDOMEN: Obese. EXTREMITIES: No clubbing or cyanosis. LABOR CUSTODIAN: Awake, alert, and oriented X3. Cranial nerves 2 to 7 intact. There is no fasciculation or atrophy. noted. No focal deficits observed. IMPRESSION: 1. Loud snoring, witnessed episodes of stopped breathing during sleep, low position of soft palate, Mallampati III to IV, wide neck, 22-1/4 inches in circumference, sleepiness, [place] Sleepiness Scale of 14; obstructive sleep apnea-hypopnea syndrome, possibly in severe range. 2. Episodes of bqz-lh-[id number] behavior with movements of the arms; REM sleep behavioral disorder. 3. Restless leg symptoms and limb movements during the night; possibly periodic limb movements. 4. Obesity; body mass index 43. 5. Hypertension. 6. Hyperlipidemia. 7. History of asthma. 8. Acid reflux. 9. Diabetes mellitus. 10.Anxiety. 11.Bipolar. 12.Status post posttraumatic stress disorder. PLAN: 1. Polysomnography for evaluation of patient's breathing during sleep. Also to check for possible parasomnia, REM sleep behavioral disorder and periodic limb movements. 2. CPAP/BiPAP titration if sleep study confirms obstructive sleep apnea-hypopnea syndrome. 3. Preferable position during sleep on the side. 4. No driving if patient feels any sleepiness. 5. I will see patient for follow up visit to explain results of testing and following plan. Thank you very much for referring this patient for consultation. Sincerely, González Forde MD, PhD, FAASM Diplomat of [place] [employer] Sleep Medicine Board of [place] [employer] Director [employer] [facility] [place] MMODL / IJN: [id number] /
== END ==
LOC: SLEEP 15:13
PROVIDERS: ATTEND Internal Medicine
DX: G47.33 Obstructive sleep apnea (adult) (pediatric) (principal); F91.9 Conduct disorder, unspecified; E66.9 Obesity, unspecified; I10 Essential (primary) hypertension; E78.5 Hyperlipidemia, unspecified; J45.909 Unspecified asthma, uncomplicated; K21.9 Gastro-esophageal reflux disease without esophagitis; E11.9 Type 2 diabetes mellitus without complications; F41.9 Anxiety disorder, unspecified; F31.9 Bipolar disorder, unspecified; F43.10 Post-traumatic stress disorder, unspecified; Z68.41 Body mass index [BMI] 40.0-44.9, adult; Z79.899 Other long term (current) drug therapy; Z88.6 Allergy status to analgesic agent
CPT/HCPCS: 99211

== ENCOUNTER → 2022-07-24 | Outpatient (CLI) | payer SELFPAY ==
[2022-07-25 01:37] LABS: HCT 46.7 % (39.6-50.0); MCH 28.6 pg (27.0-32.0); MCHC 32.1 g/dL (32.0-37.0); MCV 89.1 fL (80.0-97.0); Mean Platelet Volume 10.5 fL (9.5-12.2); NRBC Per 100 WBC 0 /100 WBCS (0.0-0.0); Platelet Count 202 X 10*3/uL (140-440); RBC 5.24 X 10*6/uL (4.40-5.60); RDW 13.2 % (11.5-14.5); WBC 7.47 X 10*3/uL (4.50-10.00)
[2022-07-25 01:53] LABS: Erythrocyte Sedimentation Rate 16 mm/Hr (0-15)
== END | disposition home or self-care (01) ==
LOC: LABWHC1 16:13
PROVIDERS: ATTEND Orthopaedic Surgery
DX: M50.222 Other cervical disc displacement at C5-C6 level (principal); M54.12 Radiculopathy, cervical region
CPT/HCPCS: 36415; 80048; 85027; 85652; 86140

== ENCOUNTER → 2023-04-11 | Outpatient (CLI) | payer OTHER ==
[2023-04-11 14:50] VITALS: BP 134/92; PULSE 82; RESP 16
--- NOTE | 2023-04-15 07:31 | P.PAINPG ---
PQRS Measure Charge Sheet Comment: A 48 yr old male w and infant at side with a history of severe and chronic neck pain x 2 yrs secondary to post C5-C6, C6-C7 discectomy & fusion presents today for evaluation. Pain level is provoked at 7/10 in intensity, constant, localized in the cervical spine, burning in character w shooting towards the LUE and hand. Pain is provoked by any lifting or overhead reaching. Pain is alleviated with PT x 12 wks which he is currently in, use of a TENS unit, heat, ice, medications, topical, repositioning and rest. Oswestry axial pain score at 24. Interventional pain procedures completed include C5-C7 Fusion Patient is currently on Lyrica, ASA, Flexeril, Aleve Patient denies any side effects of the medication(s), denies excessive drowsiness or sleepiness, denies suicidal ideation and reports that the current pain medication is helping to control the pain and improve activities of daily living. Patient denies any motor or sensory deficits. Patient denies any fever or night sweats, denies any change in the bowel movements or urination. Physical Examination: -Constitutional: Cooperative. Not in acute distress . - Neurologic: Cranial nerve II to XII intact. No focal neurological deficits. - Psychatric: Alert & oriented x 3. Matching mood & appropriate affect. Judgment and insight intact. - Musculoskeletal: Cervical spine: Muscle bulk/ tone/ strength in the bilateral upper extremities normal Vertebral body tenderness to palpation over Spurling test positive over L C5-C6, C6-C7 Distraction test positive Facet loading test positive TTP Thoracic spine Muscle bulk / tone/ strength in the bilateral paraspinal muscles normal Vertebral body tender to palpation over Facet loading test positive TTP Lumbar spine: Motor bulk/ tone/ strength lower extremities , thigh and legs : 5/5 Deep tendon reflexes : Normal Knee Jerk. Normal Ankle Jerk . Vertebral body tenderness to palpation over Lumbar Facet Loading Test positive Straight Leg Raise: positive at 30 degrees right side/ left side Gaenslen's Test positive Sacral spine : Severe tenderness over the Sacroiliac joint: right side / left side Range of motion: Flexion of the lumbar spine <60 degrees Range of motion: Extension of the lumbar spine <20 degrees Gaenslen's Test positive R / L Jose test: positive right side / left side Thigh Thrust Test positive R / L Sacral Thrust Test positive R/ L Assessment and plan: Chronic neck pain secondary to cervical DDD, spondylosis with facet arthropathy without myelopathy Recommendation of L Selective Nerve Root Block C5-C6, C6-C7 #1. May need a series of injections for optimal pain relief. Risks, benefits of procedure discussed and pt verbalized understanding. Admits to anticoagulant use or medical history of diabetes. Protocol for discontinuation/ continuation of medications ivan procedure discussed. Minimal anesthesia provided, if clinically indicated, consisting of Versed and Fentanyl. All questions answered. I have spent less than 30 minutes on patient care today. Dr Sparrow was available by phone for the evaluation of this patient. The time was used to review the medical records including relevant urine studies and Prescription history (MAPs), review of the available imaging, evaluation and examination of the patient, coordination of care with the medical staff and if applicable referring physicians, as well as creation of the medical record PQRS Narrative: Smoking Status Never smoker Home Medications: Ambulatory Orders FLUoxetine HCL [PROzac] 60 mg PO DAILY 10/13/20 Losartan Potassium [Cozaar] 100 mg PO QAM 10/13/20 OXcarbazepine [Trileptal] 450 mg PO BID 10/13/20 Omeprazole 40 mg PO QAM 10/13/20 Pioglitazone HCl 15 mg PO QAM 10/13/20 QUEtiapine [SEROquel] 50 mg PO HS 10/13/20 amLODIPine [Norvasc] 10 mg PO QAM 10/13/20 atenoloL 25 mg PO QAM 10/13/20 Ibuprofen [Motrin] 800 mg PO Q8H PRN 05/09/21 Acetaminophen [Tylenol Arthritis] 1,300 mg PO DIRECTED PRN 07/14/21 Crestor (Unknown Dose) 1 tab PO HS 07/14/21 Empagliflozin [Jardiance] 10 mg PO DAILY 07/14/21 Ergocalciferol [Vitamin D2 (1250 Mcg = 72310 Iu)] 1,250 mcg PO MO 07/14/21 Cyclobenzaprine [Flexeril] 10 mg PO HS PRN #40 tab 07/18/21 Gabapentin 300 mg PO TID #90 cap 07/18/21 Sennosides/Docusate Sodium [Senna Plus 8.6-50 mg Softgel] 1 each PO BID #20 capsule 07/18/21 cefaDROXiL [Duricef] 500 mg PO Q12HR #20 cap 07/18/21 oxyCODONE HCL/ACETAMINOPHEN [Percocet 5-325 mg] 1 tab PO Q4HR PRN #56 tab 07/18/21 Albuterol Sulfate [Proair Hfa] 1 - 2 puff INHALATION Q4HR PRN #8.5 gm 07/26/21 Controlled Substance Measures - Controlled Substance Measures Is patient prescribed a controlled substance at discharge?: No
== END ==
LOC: PNWHC3 13:51
PROVIDERS: ATTEND Specialist
DX: M54.12 Radiculopathy, cervical region (principal); M48.02 Spinal stenosis, cervical region; M25.78 Osteophyte, vertebrae; Z88.8 Allergy status to other drugs, medicaments and biological substances
CPT/HCPCS: 99211

== ENCOUNTER 2023-04-23 08:14 | Day surgery (SDC) | payer OTHER ==
[2023-04-17 16:19] VITALS: BMI 40.0
[~2023-04-23 08:14] MED LIST changes: -ACETAMINOPHEN TAB 500 MG TAB PO PRN; -GABAPENTIN 300 MG CAP PO PRN; -HYDROmorphone 0.5 MG/0.5 ML SYRINGE IVP PRN; -LIDOCAINE 1% (10MG/ML) FOR IV START INTRADERMA PRN; -ONDANSETRON 4 MG/2 ML VIAL IVP ONE; -ONDANSETRON 4 MG/2 ML VIAL IVP PRN; -ceFAZolin 3 GM in SODIUM CHLORIDE 0.9% 100 ML IVPB PRN
[2023-04-23 08:43] VITALS: TEMP 97.7
[2023-04-23 08:49] LABS: Glucose,Whole Blood 159 mg/dL (70-110)
[2023-04-23] MEDS ORDERED: IOPAMIDOL M200 10 ML VIAL ONE (09:08)
[2023-04-23] MEDS ORDERED: DEXAMETHASONE SOD PHOSPHATE 10 MG/ML 1 ML VIAL ONE (09:08)
--- NOTE | 2023-04-23 09:30 | P.PCN ---
Date of Procedure: 04/23/23 Procedure(s) Performed: PREOPERATIVE DIAGNOSIS:1- Cervical radiculopathy . 2-cervical degenerative disc disease. POSTOPERATIVE DIAGNOSIS: 1-Same as preoperative diagnoses. PROCEDURE 1. Selective nerve root block (under fluoroscopic guidance ) at left C5-6 ,C6- 7 level. (Fluoroscopy images stored on file in the radiology Department ) ANESTHESIA: Local with 1% lidocaine 4 ml. EBL: Minimal PROCEDURE INDICATION: The patient with severe neck pain and radiculopathy to the upper extremity , the symptoms unresponsive to conservative treatment. PROCEDURE DESCRIPTION / TECHNIQUE: The patient was seen and identified in the preoperative area. Risks, benefits, complications, and alternatives were discussed with the patient. The patient agreed to proceed with the procedure and signed the consent., and vital signs were stable. Patient was taken to the OR and time out was completed. The patient was placed in the lateral position ( left side up ) on procedure table. The cervical area was prepped and draped in the usual sterile fashion. Critical pause was taken. Vital signs were closely monitored during the procedure.. Using oblique fluoroscopy, the Left C5-6 level was identified, in the lateral view , the skin and deeper tissues just below was localized with 1% lidocaine. Subsequently, a 22-gauge 3.5-inch spinal needle was advanced under a tunneled view fluoroscopic guidance just underneath the foraminotomy of at the left C5-6 Under lateral fluoroscopy, the needle was then advanced to the posterior border of the interforaminal space. After negative aspiration of CSF and blood and with no paresthesias, 1 mL Isovue 200 contrast dye was injected excellent epidurogram , 2 mL of block solution containing 7.5 mg Dexamethasone and 1 mL of 0.9% normal saline PF was injected. Needle was removed and the same procedure was repeated at the left C6-7 level . At the end of the procedure, skin was cleansed, and bandages were applied. COMPLICATIONS:none DISPOSITION / PLANS: The patient was placed in a supine position and transferred to the recovery area in a stable condition for observation. There was no evidence of lower extremity motor or sensory deficit after the procedure. Patient was discharged from the recovery room after meeting discharge criteria. Home discharge instructions were given to the patient by the staff. The patient was reexamined prior to discharge.
--- NOTE | 2023-04-23 09:38 | FL ---
Intraoperative/procedural fluoroscopic services were provided for left C5-C6 selective nerve root inj ection. Total fluoroscopy time is 39.5 seconds with a total of 4 submitted images to PACS. Total DAP [id number] mGym2. Please see the operative note for further details.
[2023-04-23 10:00] VITALS: BP 136/82; PULSE 83; RESP 16
== END 2023-04-23 09:50 | disposition home or self-care (01) ==
LOC: ORPAIN 08:14
PROVIDERS: ATTEND Specialist
DX: M50.123 Cervical disc disorder at C6-C7 level with radiculopathy (principal); E11.9 Type 2 diabetes mellitus without complications; Z88.6 Allergy status to analgesic agent
CPT/HCPCS: 64479; J1100; Q9966

== ENCOUNTER → 2023-06-28 | Outpatient (CLI) | payer OTHER ==
[2023-06-28 15:54] LABS: Basophils # (A) 0.09 X 10*3/uL (0.00-0.10); Eosinophils # (A) 0.69 X 10*3/uL (0.04-0.35); Eosinophils % (A) 7.7 %; HGB 16.1 g/dL (13.0-17.0); Lymphocytes # (A) 1.89 X 10*3/uL (0.90-5.00); MCH 28.9 pg (27.0-32.0); MCHC 32.9 g/dL (32.0-37.0); Mean Platelet Volume 10.5 FL (9.5-12.2); Monocytes # (A) 0.58 X 10*3/uL (0.20-1.00); Monocytes % (A) 6.4 %; NRBC Per 100 WBC 0 X 10*3/uL (0.00-0.01); Neutrophils # (A) 5.72 X 10*3/uL (1.80-7.70); Neutrophils % (A) 63.5 %; Platelet Count 213 X 10*3/uL (140-440); RBC 5.57 X 10*6/uL (4.40-5.60); RDW 13.3 % (11.5-14.5); WBC 9.01 X 10*3/uL (4.50-10.00)
[2023-06-28 16:37] LABS: ALT 27 U/L (10-49); AST 24 U/L (14-35); Albumin 4.3 g/dL (3.8-4.9); Albumin/Globulin Ratio 1.54 Ratio (1.60-3.17); Alkaline Phosphatase 99 U/L (41-126); Blood Urea Nitrogen 11.2 mg/dL (9.0-27.0); Calcium 9.1 mg/dL (8.7-10.3); Carbon Dioxide 30.6 mmol/L (21.6-31.8); Chloride 102 mmol/L (96-109); Chol/HDL Ratio 4.36 Ratio; Globulin 2.8 g/dL (1.6-3.3); Glucose 150 mg/dL (70-110); Iron 70 UG/DL (65-175); LDL Cholesterol,Calculated 58.5 mg/dL (0.0-131.0); Potassium 4.7 mmol/L (3.5-5.5); Sodium 141 mmol/L (135-145); T4, Free (Free Thyroxine) 0.65 ng/dL (0.80-1.80); Total Bilirubin 0.3 mg/dL (0.3-1.2); Total Protein 7.1 g/dL (6.2-8.2)
== END | disposition home or self-care (01) ==
LOC: LABWHC1 11:18
DX: Z51.81 Encounter for therapeutic drug level monitoring (principal); Z79.899 Other long term (current) drug therapy
CPT/HCPCS: 36415; 80053; 80061; 82306; 82607; 82746; 83036; 83540; 84439; 84443; 85025

== ENCOUNTER → 2023-07-26 | Outpatient (CLI) | payer OTHER | END | disposition home or self-care (01) | LOC: LABPAT 08:58 | PROVIDERS: ATTEND Orthopaedic Surgery | DX: Z01.812 Encounter for preprocedural laboratory examination (principal); M48.02 Spinal stenosis, cervical region; M54.12 Radiculopathy, cervical region; Z22.322 Carrier or suspected carrier of Methicillin resistant Staphylococcus aureus | CPT/HCPCS: 86850; 86900; 86901; 87070 ==

== ENCOUNTER 2023-08-05 05:33 | Inpatient (IN) | payer OTHER ==
[~2023-08-05 05:33] MED LIST changes: +ACETAMINOPHEN TAB 500 MG TAB PO PRN; +GABAPENTIN 300 MG CAP PO PRN; -LACTATED RINGERS 1,000 ML IV SCH; +ONDANSETRON 4 MG/2 ML VIAL IVP PRN; +TRANEXAMIC 1,000 MG/100ML-NACL 1,000 MG in SALINE 1 100ML.BAG IVPB PRN
[2023-08-05] MEDS ORDERED: LIDOCAINE 1% (10MG/ML) FOR IV START INTRADERMA PRN (06:05)
[2023-08-05] MEDS ORDERED: HYDROmorphone 0.5 MG/0.5 ML SYRINGE IVP PRN ×2 (06:05→10:36)
--- NOTE | 2023-08-05 06:29 | P.HPOR ---
History of Present Illness H&P Date: 07/26/23 .D:Date: 07/26/23 : 08:24am .T:Title: [facility] History and Physical Date of :[birth year] [id number]: NKDA Age: 48 year Height: 6'2" Weight: 324 lbs BP:130/86 BMI: 40.31 kg/m2 Occupation: [employer] / Currently off work VAS: 8 Hand:Right IMPRESSION: It was my pleasure to have seen and examined Prem. I reviewed the patient's clinical syndrome, physical findings, and imaging studies during the appointment today. It is my impression that the patient has a diagnosis of. 1. 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 Left upper extremity radiculopathy/paresthesias 3. Left upper extremity weakness 4. Neck pain I outlined the natural course history without intervention and various interventional options. Spine Surgery Risk Review Mr. Villavicencio is presenting for evaluation of neck and bilateral upper extremity pain; left worse than right. Left upper extremity numbness, tingling, and weakness. It was my pleasure to have seen and examined Mr. Villavicencio. In our visit today we have had a chance to go over subjective complaints, physical examination findings and treatments including the natural course history without intervention and various interventional options. The patients imaging demonstrates: XRayCervical AP/lateral 2 views taken on 07/25/22 [facility] Spine: - Images re-reviewed with te patient today. Compared to previous films, hardware in good position, no signs of any disc loosening, migration, dislocation, or failure. Overall good coronal alignment with stable sagittal balance. Good reduction and disc height maintained. No osseous abnormalities noted. CT Myelogram performed on 11/14/2022 at [facility]: - Images reviewed with pt. Post surgical changes C5-6, C6-7. Hardware in good position No evidence of loosening fracture or failure C0-1 and C1-2 stable. Mild left foraminal stenosis C5-6. No central stenosis. On physical exam, Mr. Villavicencio demonstrates: A continued ache-like pain throughout the posterior neck that radiates down into the bilateral shoulder and upper extremities. He notes that his left upper extremity symptoms are much more severe than the right at this time. He notes that his left upper extremity pain is associated with numbness, tingling, and weakness. He reports experiencing an increasing burning pain throughout the superior aspects of the bilateral shoulder. The patient states his symptoms are exacerbated by all activity, which makes it very difficult for him to complete any of his daily tasks. The patient reports experiencing moderate to severe sleep disturbances related to his ongoing pain and associated symptoms. I have explained to the patient that as their condition progresses it will cause further neurological deficits and eventual paralysis. Based on the patients imaging, physical exam, and the rapid progression and disabling nature of their symptoms, at this time I recommend surgery in the form of a: C5-7 posterior decompression and stabilization. I discussed the risk and benefits of this procedure at length with Mr. Villavicencio. The patient agreed to considered pursuing the procedure abovementioned. Prior to surgery, she should follow up with her PCP (Cardio, ID, IM etc) for clearance. Questions were invited and answered, and the patient wishes to proceed as outlined below. Currently, I am recommendin.C5-7 posterior decompression and stabilization 2.Review of surgical risks and benefits as well as an educational packet on the proposed surgical procedure. Risks: All surgical procedures come with inherent risks, including those related to positioning, anesthesia, intraoperative findings, and postoperative complications. It is important to understand that surgery does not come with any guarantee of a successful outcome as complications and adverse events are always possible. The patient was given a handout in office today discussing the surgical procedure and risks associated with the intervention, both of which were discussed with the patient. These risks include but are not limited to the following: * Experiencing same, different or even worse symptoms in back, neck, arms, or legs compared to before surgery. Requiring further surgery or other forms of treatment presently or at some time in the future at same or other levels of the intended spine surgery. On an extreme but fortunately relatively rare basis severe complication such as blindness, stroke, heart attack, temporary and/or permanent nerve injury, paralysis, coma, or may occur, sometimes without known explanation. Surgical complications may include but are not limited to risk of infection, fluid accumulation in the surgical dissection site, including a seroma or hematoma, that requires additional surgery, wound drainage, bleeding, new numbness or weakness, vision changes/loss, spinal fluid leakage, non-healing and/or infected incision, headaches, difficulty or inability to swallow, hoarseness, hemopneumothorax, pneumothorax, impotence, retrograde ejaculation, vaginal dryness; injury to nerves, spinal cord, blood vessels, lymphatics or other vital organs (i.e., bowel injury, injury to the great vessels); heterotopic bone formation; complications related to the hardware such as screws, rods, cages including misplaced hardware, device failure, instrumentation at the wrong spine level, hardware fracture/breakage, or hardware loosening; vertebral failure of the spinal column above or below the newly placed hardware; retained surgical instrumentations or devices and the need for further surgery. * Medical risks of the planned spine surgery include but are not limited to generalized Infections to the whole body or local areas outside of the surgical site (sepsis), heart attack, bleeding, anaphylaxis, meningitis, seizure, epilepsy, hearing loss, burn schmitz, laceration of the head or other areas of the body, bruising, hypersensitivity of the skin, bladder over distension; allergic reaction; shoulder injury related to positioning; fat, blood and air clots to other areas of the body like heart, lungs, brain; failure of internal organs such as lungs, kidneys, liver and excessive bleeding. If blood transfusions are necessary, note that transfusions may cause intolerance reactions such as anaphylaxis or other complex reactions. Despite best efforts, the results of spine surgery might not heal in terms of bone, soft tissues such as skin, fascia, ligaments, and joints. Additionally, in order to achieve best possible results, spine surgery may be carried out beyond the initially planned levels and involve decompression, fusion including insertion of hardware at levels other than the original intended area of surgical interest change some portions of the procedure in order to ensure the best possible outcomes. With spine surgery and spinal fusion, there are different off label uses of instrumentation (devices, implants and hardware) as well as biological substances (bone morphogenic proteins, demineralized bone matrix) as well as using extra bone from allograft sources (i.e. cadaver bone) or autograft (iliac crest bone, ribs, or the spine itself). The patient has been given information about these practices and their inherent risks and benefits. [facility] is an educational center that serves as a training facility for neurosurgical and orthopedic LEAD ACCOUNTANT and Nursing students. Physician assistants are medically trained surgical providers who function in the outpatient, inpatient, and operating room setting under the direct supervision of the attending surgeon. [facility] has multiple operating rooms with single and overlapping rooms running daily. They currently function under the required guidelines as produced by the Senate Finance Committee with regards to the overlapping rooms and will continue to comply with changes to this policy as they occur. The requirements include and are complied with as follows: (1) the critical portions of the overlapping rooms will not occur at the same time, (2) the attending physician will be physically present during the critical portions of the procedure and immediately available during the entire case, and (3) a back-up attending is designated should the primary attending not be immediately available. The patient has had a chance to review all the listed information, has been given print outs detailing this information, and has had all his/her questions answered to their satisfaction. It was my pleasure to have seen and examined Mr. Villavicencio. In our visit today we have had a chance to go over my understanding of our patient's current condition , the natural course history without intervention and various interventional options. Questions were invited and answered, and the patient wishes to proceed as outlined above. I have seen and examined the patient for 25 minutes and we have spent more than 50% of the time in repeat and detailed counseling about the patient's condition, its natural course history with out and as much as can be predicted with surgery and re-review of various surgical treatment options. In conclusion, Mr. Villavicencio requested we proceed with the above suggested surgery and are willing to accept risks and limitations of the suggested surgery as nature of the disease process and our best attempts at treatment for the condition. Thank you again for allowing us to be part of your patient's care. Please don't hesitate to contact me if you have any further questions. Follow-up: Post procedure Patient Education: (Informational booklet, instructions, etc) given at today's appointment: Yes .ED:Patient Education: Y Plan at next visit: X-ray AP/Lat of cervical spine Medications Reviewed: YES In our visit today Mr. Villavicencio and I have had a chance to go over my understanding of the patient's current condition, the natural course history without intervention and various interventional options. Questions were invited and answered, and the patient wishes to proceed as outlined above. I will be sure to keep you updated afterMr. Villavicencio returns here for further follow-up. Thank you again for your referral. Please do not hesitate to contact me if you have any further questions. Signed and authenticated by: Nicho Callaway Shil[facility] Campuz[facility] [address] [place] [address] This message is confidential, intended only for the named recipient(s) and may contain information that is privileged or exempt from disclosure under appl icable law. If you are not the intended recipient(s), you are notified that the dissemination, distribution or copying of this information is strictly prohibited. If you received this message in error, please notify the sender then delete this message. Patient verbalizes understanding of the information discussed. The above note was initiated by Jillian Li, physician recording social research assistant for Dr. Nicho Gibson. This note has been reviewed by Dr. Gibson, who has made his personal changes and impressions for this document. CC: Mckayla Monte M.D. Rx: cyclobenzaprine 10 mg tablet, 40, Ref: 0, take 1 tablet (10 mg) by oral route 3 times per day # SIGNED BY Nicho Gibson (GOO)08/02/2023 08:06AM Past Medical History Past Medical History: Diabetes Mellitus, GERD/Reflux, Hyperlipidemia, Hypertension Additional Past Medical History / Comment(s): Heart murmur., Cervical disc d isease. History of Any Multi-Drug Resistant Organisms: None Reported Past Surgical History: Heart Catheterization, Orthopedic Surgery, Tonsillectomy Additional Past Surgical History / Comment(s): Cardiac Cath approx. 2011, , colonoscopy with EGD , PAIN CLINIC PROCEDURES, cervical discs replacement Jul 18, 2020 Past Anesthesia/Blood Transfusion Reactions: No Reported Reaction Smoking Status: Never smoker - Past Family History Mother Family Medical History: Cancer Additional Family Medical History / Comment(s): lymphoma Father Family Medical History: Hypertension Medications and Allergies Home Medications Medication Instructions Recorded Confirmed Type Losartan Potassium [Cozaar] 100 mg PO QAM 10/13/20 08/05/23 History OXcarbazepine [Trileptal] 900 mg PO BID 10/13/20 08/05/23 History Omeprazole 40 mg PO QAM 10/13/20 08/05/23 History amLODIPine [Norvasc] 10 mg PO QAM 10/13/20 08/05/23 History atenoloL 25 mg PO QAM 10/13/20 08/05/23 History Empagliflozin [Jardiance] 10 mg PO DAILY 07/14/21 08/05/23 History Celecoxib [CeleBREX] 200 mg PO BID 04/17/23 08/05/23 History Cyclobenzaprine [Flexeril] 10 mg PO BID 04/17/23 08/05/23 History Mounjaro 1 Mg 1 dose SQ TH 04/17/23 08/05/23 History Pregabalin [Lyrica] 150 mg PO BID 04/17/23 08/05/23 History Rosuvastatin [Crestor] 10 mg PO HS 04/17/23 08/05/23 History Benzonatate [Tessalon Perle] 200 mg PO HS 07/30/23 08/05/23 History Famotidine 20 mg PO BID 07/30/23 08/05/23 History Prazosin(Unk) 1 mg PO DAILY 07/30/23 08/05/23 History Ziprasidone(Unk) 20 mg PO BID 07/30/23 08/05/23 History Allergies Allergy/AdvReac Type Severity Reaction Status Date / Time ketorolac [From Toradol] AdvReac Nausea Verified 08/05/23 06:16 Physical Examination Osteopathic Statement: *. No significant issues noted on an osteopathic structural exam other than those noted in the History and Physical/Consult.
[2023-08-05 06:35] LABS: Glucose,Whole Blood 220 mg/dL (70-110)
[2023-08-05] MEDS ORDERED: LACTATED RINGERS 1,000 ML IV ONE ×3 (06:40→09:21)
[2023-08-05] MEDS: LACTATED RINGERS 1,000 ML IV SCH ×2 (06:40→12:49)
[2023-08-05] MEDS ORDERED: VASOPRESSIN 20 UNIT/ML 1 ML VIAL ONE (07:25)
[2023-08-05] MEDS ORDERED: PROPOFOL 10 MG/ML 20 ML VIAL IV ONE (07:25)
[2023-08-05] MEDS ORDERED: ePHEDrine 50 MG/ML 1 ML VIAL ONE (07:25)
[2023-08-05] MEDS ORDERED: fentaNYL (PF) 50 MCG/ML 2 ML AMP ONE (07:25)
[2023-08-05] MEDS ORDERED: GLYCOPYRROLATE 0.2 MG/ML 2 ML VIAL ONE (07:25)
[2023-08-05] MEDS ORDERED: MIDAZOLAM 2 MG/2 ML VIAL ONE (07:25)
[2023-08-05] MEDS ORDERED: TRANEXAMIC 1,000 MG/100ML-NACL PREMIX BAG ONE (07:25)
[2023-08-05] MEDS ORDERED: LIDOCAINE 1% INJ 10MG/ML (20 ML MDV) ONE (07:25)
[2023-08-05] MEDS ORDERED: KETAMINE HCL IN 0.9 % NACL 50 MG/5 ML SYRINGE ONE (07:25)
[2023-08-05] MEDS ORDERED: ROCURONIUM 10 MG/ML (5 ML VIAL) IV ONE (07:25)
[2023-08-05] MEDS ORDERED: PHENYLEPHRINE 10 MG/ML VIAL ONE (07:25)
[2023-08-05] MEDS ORDERED: NEOSTIGMINE 1 MG/ML 10 ML VIAL ONE (07:25)
[2023-08-05] MEDS ORDERED: SUCCINYLCHOLINE CHLORIDE 200 MG/10 ML VIAL IV ONE (07:25)
[2023-08-05] MEDS ORDERED: HYDROmorphone (PF) 1 MG/ML ONE (07:25)
[2023-08-05] MEDS ORDERED: ceFAZolin 3,000 MG in SODIUM CHLORIDE 0.9% IRRIGATIO 3,000 ML IRRIGATION ONE (08:24)
[2023-08-05] MEDS ORDERED: THROMBIN (BOVINE) 5,000 UNIT VIAL TOPICAL ONE ×2 (08:24)
[2023-08-05] MEDS ORDERED: GENTAMICIN 80 MG in SODIUM CHLORIDE 0.9% IRRIGATIO 3,000 ML IRRIGATION ONE (08:24)
[2023-08-05] MEDS ORDERED: GELATIN SPONGE,ABSORB (LARGE) 1 EACH SPONGE TOPICAL ONE (08:24)
[2023-08-05] MEDS ORDERED: VANCOMYCIN 1,000 MG VIAL MISCELLANE ONE (09:47)
[2023-08-05] MEDS ORDERED: MAGNESIUM HYDROXIDE 2,400 MG/30 ML CUP PO PRN (10:36)
[2023-08-05] MEDS ORDERED: SENNOSIDES-DOCUSATE SODIUM 1 EACH TAB PO PRN (10:36)
[2023-08-05] MEDS ORDERED: HYDROcodone/APAP 5-325MG 1 EACH TAB PO PRN (10:36)
--- NOTE | 2023-08-05 10:40 | XR ---
Fluoroscopy History: CERVICAL STENOSIS RADICULOPATHY M54.12 M48.02 cervical spine surgery in OR fl time 0.47 dap 9.2338
--- NOTE | 2023-08-05 10:41 | FL ---
Fluoroscopy History: CERVICAL STENOSIS RADICULOPATHY M54.12 M48.02 cervical surgery in OR. fl time 0.47 mins dap 9.2331
--- NOTE | 2023-08-05 10:53 | P.OP ---
Date of Procedure: 08/05/23 Preoperative Diagnosis: Current Active Problems Cervical spinal stenosis (Acute) Spondylosis of cervical spine with radiculopathy (Acute) Foraminal stenosis of cervical region (Acute) Cervical spinal stenosis due to adjacent segment disease after fusion procedure (Acute) Postoperative Diagnosis: Current Active Problems Cervical spinal stenosis (Acute) Spondylosis of cervical spine with radiculopathy (Acute) Foraminal stenosis of cervical region (Acute) Cervical spinal stenosis due to adjacent segment disease after fusion procedure (Acute) Procedure(s) Performed: 1. C5-6 POSTEROLATERAL INSTRUMENTED ARTHRODESIS 2. C6-7 POSTERIOLATERAL INTSTRUMENTED ARTHRODESIS 3. C5-7 INSTRUMENTATION POSTERIOR 4. C5-6 AND C6-7 BILATERAL LAMINECTOMY, FACETECTOMY AND FORAMINOTOMY USE OF IONM CPTMOD 22 THIS CASE TOOK 75% LONGER THAN EXPECTED DUE TO CORMORBID CONDITIONS, HIGH BMI >40, EXTENT OF CERVICAL DISEASE AND HIGH TECHNICALITY OF THE CASE. Implants: [employer]ERV[employer] Anesthesia: GETA Surgeon: Nicho Gibson Deputy Sheriff Building Guard #1: Jitendra Magana (WAS PRESENT AND ASSISTED WITH ALL ASPECTS OF THE CASE FROM POSITION TO CLOSURE) Estimated Blood Loss (ml): 200 IV fluids (ml): 1,200 Urine output (ml): 0 Pathology: none sent Condition: stable Disposition: PACU Indications for Procedure: Mr. Villavicencio is presenting for evaluation of neck and bilateral upper extremity pain; left worse than right. Left upper extremity numbness, tingling, and weakness. It was my pleasure to have seen and examined Mr. Villavicencio. In our visit today we have had a chance to go over subjective complaints, physical examination findings and treatments including the natural course history without intervention and various interventional options. The patients imaging demonstrates: XRayCervical AP/lateral 2 views taken on 07/25/22 [facility]: - Images re-reviewed with te patient today. Compared to previous films, hardware in good position, no signs of any disc loosening, migration, dislocation, or failure. Overall good coronal alignment with stable sagittal balance. Good reduction and disc height maintained. No osseous abnormalities noted. CT Myelogram performed on 11/14/2022 at [facility]: - Images reviewed with pt. Post surgical changes C5-6, C6-7. Hardware in good position No evidence of loosening fracture or failure C0-1 and C1-2 stable. Mild left foraminal stenosis C5-6. No central stenosis. On physical exam, Mr. Villavicencio demonstrates: A continued ache-like pain throughout the posterior neck that radiates down into the bilateral shoulder and upper extremities. He notes that his left upper extremity symptoms are much more severe than the right at this time. He notes that his left upper extremity pain is associated with numbness, tingling, and weakness. He reports experiencing an increasing burning pain throughout the superior aspects of the bilateral shoulder. The patient states his symptoms are exacerbated by all activity, which makes it very difficult for him to complete any of his daily tasks. The patient reports experiencing moderate to severe sleep disturbances related to his ongoing pain and associated symptoms. I have explained to the patient that as their condition progresses it will cause further neurological deficits and eventual paralysis. Based on the patients im aging, physical exam, and the rapid progression and disabling nature of their symptoms, at this time I recommend surgery in the form of a: C5-7 posterior decompression and stabilization. I discussed the risk and benefits of this procedure at length with Mr. Villavicencio. The patient agreed to considered pursuing the procedure abovementioned. Prior to surgery, she should follow up with her PCP (Cardio, ID, IM etc) for clearance. Questions were invited and answered, and the patient wishes to proceed as outlined below. Currently, I am recommendin.C5-7 posterior decompression and stabilization Description of Procedure: C2-T2 decompression and fusion The patient was seen and examined in the preoperative area. All preoperative protocols were followed. Informed consent was obtained, risks and benefits of the procedure were discussed at length. Risks including bleeding infection damage to the surrounding tissue and risk of reoperation were discussed with the patient. Risk of anesthesia up to and including was discussed with the patient. These are outlined in the risk review. They were willing to accept these risks and all of the risks of surgery. The patient was given a weight- based dose of antibiotics in the form of 2 g Ancef. The patient was seen and evaluated by the anesthesia team who deemed them fit for surgery. The site was marked, the patient was willing to proceed with the procedure. The patient was transferred to the operative suite by the Department of anesthesia. They were then drifted off to sleep by the department anesthesia and GETA was performed. The patient tolerated this well. pre-positioning motors were obtained.Peterson in place from the floor. Once confirmation of lines and ventilation Webb head clamp was placed on the patient and secured and the patient was transferred to a [prone Malik table very carefully] with the [place] head mva reactor operator the head was secured and placed into an optimal position x- ray confirmed this position. Post-positioning motors remained stable. All bony prominences including wrists, elbows, axilla, chest, hips, and thighs, and feet were padded very well. Special attention was paid to the genitalia and these were padded accordingly. SCDs were placed on bilateral lower extremities and were connected. Arms were well padded and placed tucked at his side thumbs down. Shoulders were gently taped down to the table.. Once in position, again we confirmed good ventilation capabilities and that lines were running appropriately. The patient's posterior cervical spine was then exposed. 1010s were placed outlining the incision site. Standard alcohol was used to clean the incision site and allowed to dry. C-arm was used to biomark the patient and confirm level for incision which was marked with a skin marker. Operative briefing was performed with all teams and everyone in agreement to proceed. The patient was then prepped and draped in a normal sterile fashion. Timeout was then performed and all parties were in agreement with the procedure to be performed. Midline skin incision made over the previously bio-marked area and dissection taken down midline to the SP of C4-T1. Subperiosteal dissection taken out over the lamina and lateral masses of C5-C7 and lateral masses. Once exposure complete, the wound was irrigated and the C-arm brought in for imaging. A penfield 4 was used to erlin the C7 pedicle and lamina for level marking and confirmation. Once confirmed, high speed susan was used to susan the IAP of C5 and C6 and then used to make a corporate pilot hole in C5, 6 and 7 bilaterally. Then a drill guide was set to 14 mm and lateral mass screw trajectory was drilled. Ball tip feeler confirmed bony bottom. Screws were then placed. AP and lateral fluoroscopy confirmed screw placement. Once confirmed. Rods were selected and placed. Set screws were then placed and final tightened. Bilateral laminectomy, facetectomy and foraminotomies were then done from C5- 7/T1 using high speed susan, kerrison rongeur and upbiting curette. Bilateral laminotomy troughs were made with susan followed by curette to release ligamentum. Rongure was then used to gently remove the lamina and facets posteriorly without issues. Meticulous hemostasis was performed after.. Motors were run before and after decompression and they remain stable. Good pulsations of the cord were noted after decompression. Foraminotomies then performed with kerrison rongeur and clean up of the laminectomy site. The wound was then copiously irrigated with 3 L of Ancef irrigation followed by 3 L of gentamicin irrigation followed by 3 L of normal sterile saline. Facet joints were drilled at each level to allow for fusion Surgicel was placed over the dura. MagnetOs were placed in the posterior lateral gutters along with autograft.. This was impacted into position for fusion. 2 g of powdered vancomycin was then placed deep within the wound and a deep drain was placed. We then proceeded with layered closure first in the deep fascia with #1 PDS then in the deep fascia followed by a running #1 stratafix. 0 Vicryl was used in the deep subq fascia and an 0 PDS stratafix used in the subdermal layer. Skin hudson then approximated skin edges. The wound edges approximated very well. The wound was then cleaned and dressed sterilely with an operative foam dressing 4 x 4 and Tegaderm. The drain had good suction. The patient was placed in a hard cervical collar. The patient was transferred back to their hospital bed atraumatically. Webb head clamp was removed and pin sites were clear. Drain continued to hold suction. Patient was placed in a hard collar Patient was then awakened and extubated by the department of anesthesia having tolerated the procedure very well with no complications. They were transferred to the postoperative care unit in stable condition. Pin sites were clear. Patient was seen in PACU in stable condition. Still waking up. VSS. Not following commands yet.
[2023-08-05] MEDS: ACETAMINOPHEN TAB 325 MG TAB PO SCH ×3 (12:53→22:44)
[2023-08-05] MEDS: HYDROmorphone 1 MG/ML 1 ML SYRINGE IVP PRN ×4 (13:12→22:44)
[2023-08-05] MEDS: HYDROcodone/APAP 10-325MG 1 EACH TAB PO PRN (15:08)
[2023-08-05] MEDS ORDERED: DEXTROSE 50% SYRINGE 50 ML IVP PRN ×2 (15:22)
[2023-08-05] MEDS: CYCLOBENZAPRINE 10 MG TAB PO PRN (16:37)
[2023-08-05 17:01] LABS: Glucose,Whole Blood 294 mg/dL (70-110)
[2023-08-05] MEDS ORDERED: ONDANSETRON 4 MG/2 ML VIAL IVP PRN (17:13)
[2023-08-05] MEDS ORDERED: bisacodyL 5 MG TABLET.DR PO PRN (17:15)
[2023-08-05] MEDS: PREGABALIN 75 MG CAP PO SCH ×2 (17:25→21:29)
--- NOTE | 2023-08-05 17:25 | P.CONS ---
History of Present Illness - Reason for Consult Consult date: 08/05/23 DM 2 Requesting physician: Nicho Gibson - Chief Complaint Neck Pain - History of Present Illness Patient is a 48-year-old male with diabetes, hypertension, dyslipidemia, moderate aortic stenosis, nonalcoholic fatty liver disease, PTSD and GERD who presented for elective posterior cervical decompression and fusion. Patient tolerated procedure well without any immediate postoperative complications. Patient seen and examined at bedside. He is having significant amount of postoperative pain but it is getting better than when he arrived to the floor. He feels slightly nauseous right now. At home he was taking Celebrex, cyclobenzaprine, and pre-150 mg twice daily for pain. He was not using any narcotic medications. He denies any recent cough, cold, fever, flu. He denies any difficulty swallowing, lightheadedness, or dizziness. He has pain in his back. He denies any chest pain or shortness of breath. present at bedside and all questions answered. They do not want him resumed on Geodon as he started this about a week ago but it was not agreeing with his stomach and they subsequently stopped this medication. Vital signs reviewed General: nontoxic, no distress, appears at stated age Derm: warm, dry Eyes: EOMI, no lid lag, anicteric sclera, pupils equal round reactive to light ENT: Nose and ears atraumatic, no thrush, no pharyngeal erythema Cardiovascular: S1S2 reg, no murmur, positive posterior tibial pulse bilateral, no edema, capillary refill less than 2 seconds Lungs: clear to auscultation bilateral, no rhonchi, no rales, no wheeze, no accessory muscle use Abdominal: soft, nontender to palpation, no guarding, no appreciable organomegaly, normal bowel sounds Ext: no gross muscle atrophy, muscle strength 5 out of 5 in all 4 extremities, no contractures Neuro: CN II-XII grossly intact, light touch intact all 4 extremities, finger to nose within normal limits, Psych: Alert, oriented, appropriate affect Assessment/Plan: Patient is a 48 M s/p posterior cervical 5-7 decompression and fusion DM 2 - last dose of Mounjaro approx 10 days ago - SSI, Follow BS - Add Farxiga in replacement of Jardiance - Pre-op A1C 7.1 HTN - Follow BP, elevated post-op and likely pain mediated - Atenolol 25 mg daily, Norvasc 10 mg daily, losartan 100 mg daily HLD -Lipitor 20 mg daily GERD - Protonix 40 mg PO daily NAFLD PTSD Imaging: None new Data Review: Preoperative blood work reviewed and unremarkable for glucose of 246, creatinine 0.8, hemoglobin 15.4, A1c 7.1 Thank you for allowing us to participate in the care of this pleasant patient. Do not hesitate to contact us with questions. Someone can be reached from the [facility] hospitalist group all hours of the day at [phone] or via [employer]. This dictation was prepared using [employer] voice recognition software. Though every attempt is made to correct errors during dictation some may still exist. Past Medical History Past Medical History: Diabetes Mellitus, GERD/Reflux, Hyperlipidemia, Hypertension Additional Past Medical History / Comment(s): Cervical disc disease, Moderate Aortic stenosis History of Any Multi-Drug Resistant Organisms: None Reported Past Surgical History: Heart Catheterization, Orthopedic Surgery, Tonsillectomy Additional Past Surgical History / Comment(s): Cardiac Cath approx. 2011, colonoscopy with EGD , PAIN CLINIC PROCEDURES, cervical discs replacement Jul 18, 2020 Past Anesthesia/Blood Transfusion Reactions: No Reported Reaction Past Psychological History: Anxiety, Bipolar, Depression, PTSD, Schizophrenia Additional Psychological History / Comment(s): PTSD from tours in [place] Smoking Status: Never smoker Past Alcohol Use History: None Reported Past Drug Use History: None Reported - Past Family History Mother Family Medical History: Cancer Additional Family Medical History / Comment(s): lymphoma Father Family Medical History: Hypertension Medications and Allergies Home Medications Medication Instructions Recorded Confirmed Type Losartan Potassium [Cozaar] 100 mg PO QAM 10/13/20 08/05/23 History OXcarbazepine [Trileptal] 900 mg PO BID 10/13/20 08/05/23 History Omeprazole 40 mg PO QAM 10/13/20 08/05/23 History amLODIPine [Norvasc] 10 mg PO QAM 10/13/20 08/05/23 History atenoloL 25 mg PO QAM 10/13/20 08/05/23 History Empagliflozin [Jardiance] 10 mg PO DAILY 07/14/21 08/05/23 History Celecoxib [CeleBREX] 200 mg PO BID 04/17/23 08/05/23 History Cyclobenzaprine [Flexeril] 10 mg PO BID 04/17/23 08/05/23 History Mounjaro 1 Mg 1 dose SQ TH 04/17/23 08/05/23 History Pregabalin [Lyrica] 150 mg PO BID 04/17/23 08/05/23 History Rosuvastatin [Crestor] 10 mg PO HS 04/17/23 08/05/23 History Benzonatate [Tessalon Perle] 200 mg PO HS 07/30/23 08/05/23 History Famotidine 20 mg PO BID 07/30/23 08/05/23 History Prazosin(Unk) 1 mg PO DAILY 07/30/23 08/05/23 History Ziprasidone(Unk) 20 mg PO BID 07/30/23 08/05/23 History Allergies Allergy/AdvReac Type Severity Reaction Status Date / Time ketorolac [From Toradol] AdvReac Nausea Verified 08/05/23 06:16 Physical Exam Osteopathic Statement: *. No significant issues noted on an osteopathic structural exam other than those noted in the History and Physical/Consult. Vitals: Vital Signs Temp Pulse Pulse Resp BP Pulse Ox 08/05/23 16:05 91 133/79 91 L 08/05/23 15:50 92 133/76 92 L 08/05/23 15:35 87 131/73 90 L 08/05/23 15:20 91 135/80 91 L 08/05/23 15:05 87 134/79 91 L 08/05/23 14:50 97.6 F 94 18 147/90 93 L 08/05/23 14:33 91 147/90 93 L 08/05/23 14:18 90 132/79 91 L 08/05/23 14:03 86 132/78 92 L 08/05/23 13:48 87 130/78 92 L 08/05/23 13:33 91 128/81 89 L 08/05/23 12:44 97.4 F L 97 16 148/98 90 L 08/05/23 12:00 94 16 170/80 94 L 08/05/23 11:45 92 18 176/86 95 08/05/23 11:30 93 16 164/89 94 L 08/05/23 11:15 93 16 169/86 100 08/05/23 11:00 91 16 168/80 100 08/05/23 10:54 90 16 152/74 98 08/05/23 10:39 97.2 F L 90 16 149/74 100 08/05/23 06:24 97.9 F 80 16 131/80 95 Intake and Output 08/05/23 08/05/23 08/05/23 06:59 14:59 22:59 Intake Total 200 1952 Output Total 1177 200 Balance 200 775 -200 Intake: IV 200 1952 Output: Urine 977 200 Estimated Blood Loss 200 Other: Weight 148.33 kg 148.33 kg Results Labs: Abnormal Lab Results - Last 24 Hours (Table) 08/05/23 08/05/23 Range/Units 06:34 17:00 POC Glucose (mg/dL) 220 H 294 H (70-110) mg/dL
[2023-08-05] MEDS: ceFAZolin 3 GM in SODIUM CHLORIDE 0.9% 100 ML IVPB SCH ×2 (17:28→22:44)
[2023-08-05] MEDS: INSULIN ASPART (NovoLOG) 100 UNIT/ML VIAL SQ SCH ×2 (17:30→21:29)
--- NOTE | 2023-08-05 17:44 | CT ---
EXAMINATION TYPE: CT cervical spine wo con DATE OF EXAM: 08/05/2023 COMPARISON: None HISTORY: s/p c5-c7 post cervical decompr fusion CT DLP: [address] of the cervical spine was performed with bone and soft tissue window settings submitted . Coronal and sagittal reconstruction is obtained. Postoperative changes of anterior cervical discectomy and fusion at C5-6 and C6-7. Intervertebral bod y spacers producing a large amount of artifact limiting evaluation. A compressive laminectomy seen wi th pedicular screws noted bilaterally. Postoperative alignment appears to be within normal limits. Po stsurgical soft tissue changes noted. Postoperative surgical drain is in place. The remaining levels are felt to be within normal limits. IMPRESSION: Postoperative alignment at C5-6 and C6-7 decompressive laminectomy and ACDF changes.
[2023-08-05 19:58] LABS: Glucose,Whole Blood 193 mg/dL (70-110)
[2023-08-05] MEDS ORDERED: PREGABALIN 75 MG CAP PO SCH (21:00)
[2023-08-05] MEDS ORDERED: ZIPRASIDONE 20 MG CAP PO SCH (21:00)
[2023-08-05] MEDS: CYCLOBENZAPRINE 10 MG TAB PO SCH (21:28)
[2023-08-05] MEDS: ATORVASTATIN 20 MG TAB PO SCH (21:28)
[2023-08-05] MEDS: FAMOTIDINE 20 MG TAB PO SCH (21:28)
[2023-08-05] MEDS: OXcarbazepine 300 MG TAB PO SCH (21:29)
[2023-08-05] MEDS: BENZONATATE 100 MG CAP PO SCH (21:29)
[2023-08-06] MEDS: HYDROcodone/APAP 10-325MG 1 EACH TAB PO PRN ×4 (00:07→23:37)
[2023-08-06] MEDS: HYDROmorphone 1 MG/ML 1 ML SYRINGE IVP PRN ×3 (01:39→19:57)
[2023-08-06] MEDS: CYCLOBENZAPRINE 10 MG TAB PO PRN (03:09)
[2023-08-06] MEDS: PANTOPRAZOLE 40 MG TABLET PO SCH (06:13)
[2023-08-06] MEDS: ACETAMINOPHEN TAB 325 MG TAB PO SCH ×3 (06:16→18:29)
[2023-08-06 06:55] LABS: Glucose,Whole Blood 161 mg/dL (70-110)
[2023-08-06] MEDS: INSULIN ASPART (NovoLOG) 100 UNIT/ML VIAL SQ SCH ×4 (08:14→21:39)
[2023-08-06] MEDS: SENNOSIDES-DOCUSATE SODIUM 1 EACH TAB PO SCH (08:18)
[2023-08-06] MEDS: FAMOTIDINE 20 MG TAB PO SCH ×2 (08:18→21:38)
[2023-08-06] MEDS: LOSARTAN 50 MG TAB PO SCH (08:18)
[2023-08-06] MEDS: PREGABALIN 75 MG CAP PO SCH ×3 (08:18→21:39)
[2023-08-06] MEDS: amLODIPine 10 MG TAB PO SCH (08:19)
[2023-08-06] MEDS: OXcarbazepine 300 MG TAB PO SCH ×2 (08:19→21:39)
[2023-08-06] MEDS: DAPAGLIFLOZIN PROPANEDIOL 5 MG TABLET PO SCH (08:19)
[2023-08-06] MEDS: CYCLOBENZAPRINE 10 MG TAB PO SCH ×2 (08:19→21:38)
[2023-08-06] MEDS: atenoloL 25 MG TAB PO SCH (08:19)
[2023-08-06] MEDS: PRAZOSIN 1 MG CAP PO SCH (08:19)
[2023-08-06 09:01] LABS: Basophils # (A) 0.06 X 10*3/uL (0.00-0.10); Basophils % (A) 0.4 %; Eosinophils # (A) 0.07 X 10*3/uL (0.04-0.35); Eosinophils % (A) 0.4 %; HCT 48.2 % (39.6-50.0); HGB 15.9 g/dL (13.0-17.0); Lymphocytes % (A) 13.9 %; MCH 28.2 pg (27.0-32.0); MCV 85.5 FL (80.0-97.0); Mean Platelet Volume 10.2 FL (9.5-12.2); Monocytes # (A) 1.36 X 10*3/uL (0.20-1.00); Monocytes % (A) 8.2 %; NRBC Per 100 WBC 0 X 10*3/uL (0.00-0.01); Neutrophils # (A) 12.65 X 10*3/uL (1.80-7.70); Neutrophils % (A) 76.6 %; Platelet Count 191 X 10*3/uL (140-440); RBC 5.64 X 10*6/uL (4.40-5.60); RDW 13.6 % (11.5-14.5); WBC 16.52 X 10*3/uL (4.50-10.00)
[2023-08-06 09:34] LABS: BUN/Creat Ratio 20.33 Ratio (12.00-20.00); Blood Urea Nitrogen 12.2 mg/dL (9.0-27.0); Calcium 8.8 mg/dL (8.7-10.3); Carbon Dioxide 29.2 mmol/L (21.6-31.8); Chloride 98 mmol/L (96-109); Glucose 182 mg/dL (70-110); Potassium 4.2 mmol/L (3.5-5.5); Sodium 138 mmol/L (135-145)
--- NOTE | 2023-08-06 09:49 | P.PN ---
Subjective Progress Note Date: 08/06/23 Principal diagnosis: 1. 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 Left upper extremity radiculopathy/paresthesias 3. Left upper extremity weakness 4. Neck pain Patient seen and examined this morning. Patient is resting comfortably in bed. He does report that his pain is managed on current regimen, although he has had an increase of muscle spasms along bilateral shoulders. Educated patient that this will be where most of his pain is located and to utilize ice packs to assist with pain management. Medications will be adjusted. Surgical incision to the posterior cervical spine, dressing has moderate shadowing noted. Hemovac is intact with compression, no measurable output. Dressing will be changed later today. Patient does report increased sensation of his left upper extremity since the procedure. Continue to encourage patient to be up in chair for all meals and to work with physical therapy today. Encourage use of incentive spirometer. No acute concerns at this time. Objective - Vital Signs Vital signs: Vital Signs Temp 99.3 F 08/06/23 01:37 Pulse 107 H 08/06/23 01:37 Resp 14 08/06/23 01:37 BP 166/96 08/06/23 01:37 Pulse Ox 90 L 08/06/23 01:37 FiO2 Intake & Output 08/05/23 08/05/23 08/06/23 06:59 18:59 06:59 Intake Total 200 1951 Output Total 1377 Balance 200 575 Weight 148.33 kg 148.33 kg Intake: IV 200 1951 Output: Urine 1177 Estimated Blood Loss 200 Other: # Voids 2 7 - Exam Physical Examination General: The patient is awake and alert, in no acute distress Skin: Skin is warm and dry with no obvious rashes or lesions. Surgical incision to the posterior cervical spine, dressing presents with moderate sanguinous drainage, Hemovac is intact. Dressing will be changed later today. Eye: Pupils are equal, round and reactive to light, extra-ocular movements are intact; there is normal conjunctiva bilaterally. Neck: The neck is supple, there is no tenderness and ROM intact. Cardiovascular: There is a regular rate and rhythm. No murmur, rub or gallop is appreciated. Respiratory: Lungs are clear to auscultation, respirations are non-labored, breath sounds are equal. Gastrointestinal: Soft, non-distended, non-tender abdomen. Back: There is no tenderness to palpation in the midline, paralumbar, parathora cic or buttocks region. There is no obvious deformity . Musculoskeletal: ROM limited secondary to pain and stiffness from surgical procedure. Muscle strength in all major muscle groups of bilateral upper extremities 4/5, bilateral lower extremities 5/5. Neurological: CN 2-12 intact. There are no obvious motor or sensory deficits. Movement and coordination equal and intact. Sensory exam to light touch intact C5-T1 and intact from L2-S1. Reflexes 2/4 in bilateral upper and lower extremities. Negative Hoffmans, babinski, and clonus signs. Psychiatric: Cooperative, appropriate mood & affect, normal judgment. - Labs CBC & Chem 7: 08/06/23 05:50 08/06/23 05:50 Labs: Abnormal Lab Results - Last 24 Hours (Table) 08/05/23 08/05/23 Range/Units 17:00 19:56 POC Glucose (mg/dL) 294 H 193 H (70-110) mg/dL Assessment and Plan Assessment: Post Op Day 1: C5-C7 PCDF 1. 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 Left upper extremity radiculopathy/paresthesias 3. Left upper extremity weakness 4. Neck pain Plan: -Appreciate valuation consultant and team management. -Activity: Ambulate QID, OOB all meals, up and about, limit lifting bending twisting to less than 5 lbs. Use walker or cane if needed for stability. -Daily PT/OT, increase ambulation strength and balance. -[place] Cervical collar at all times. Patient may remove for showers. -Pain control: Adequate at this time -Meds: reviewed -GI ppx: senna, Miralax -DC santoyo when up and about, bedside commode if needed -DVT PPX: OK to restart Heparin tonight -Hygiene: Shower today. Maintain dressing clean and dry. Meticulous cleaning after BMs away from the incision site -Drains: Maintain for now. Continue to monitor and record output q shift. -Encourage IS 10x/hr -Dispo: Anticipate discharge home tomorrow with homecare *I reviewed and discussed this case with my attending Dr. Gibson, whom has reviewed this chart and films and is in agreement with assessment and plan of care as outlined above. I have personally seen and examined the patient, performed the documentation and the assessment and plan as written. Number of minutes spent on the visit:15m.
[2023-08-06 11:14] LABS: Glucose,Whole Blood 214 mg/dL (70-110)
[2023-08-06 16:34] LABS: Glucose,Whole Blood 209 mg/dL (70-110)
--- NOTE | 2023-08-06 16:46 | P.PN ---
Subjective Progress Note Date: 08/06/23 (delayed charting seen at 1015) Patient is a 48-year-old male with diabetes, hypertension, dyslipidemia, moderate aortic stenosis, nonalcoholic fatty liver disease, PTSD and GERD who presented for elective posterior cervical decompression and fusion. Patient tolerated procedure well without any immediate postoperative complications. Patient seen and examined at bedside. Doing okay still having pain, no nasuea, no vomiting, no shortness of breath, no difficulty swallowing. Vital signs reviewed General: Nontoxic, no distress, appears at stated age, hard cervical collar in place Cardiovascular: S1S2 reg, no murmur Lungs: CTA bilateral, no rhonchi, no rales, no accessory muscle use Abdominal: Soft, nontender to palpation, no guarding Ext: No gross muscle atrophy, no edema b/l lower extremities, no contractures Neuro: CN II-XI grossly intact, no focal neuro deficits Psych: Alert, oriented, appropriate affect Assessment/Plan: Patient is a 48 M s/p posterior cervical 5-7 decompression and fusion DM 2 - last dose of Mounjaro approx 10 days ago - SSI, Follow BS - Farxiga 5 mg daily - Pre-op A1C 7.1 , now A1C 8.2 Leukocytosis, reactive - repeat CBC in AM HTN - Follow BP, elevated post-op and likely pain mediated - Atenolol 25 mg daily, Norvasc 10 mg daily, losartan 100 mg daily HLD -Lipitor 20 mg daily GERD - Protonix 40 mg PO daily NAFLD PTSD Imaging: None new reviewed Data Review: Labs reviewed from today include CBC, basic metabolic profile, and A1c which are remarkable for white blood cell count 16.52, glucose 182, and A1c 8.2 DVT prophylaxis: Per primary admitting service Thank you for allowing us to participate in the care of this pleasant patient. Do not hesitate to contact us with questions. Someone can be reached from the [facility] hospitalist group all hours of the day at [phone] or via [employer] serve. This dictation was prepared using [employer] voice recognition software. Though every attempt is made to correct errors during dictation some may still exist. Objective - Vital Signs Vital signs: Vital Signs Temp 98.3 F 08/06/23 14:00 Pulse 95 08/06/23 14:00 Resp 18 08/06/23 14:00 BP 131/74 08/06/23 14:00 Pulse Ox 89 L 08/06/23 14:00 FiO2 Intake & Output 08/05/23 08/06/23 08/06/23 18:59 06:59 18:59 Intake Total 1951 Output Total 1377 Balance 575 Weight 148.33 kg Intake: IV 1951 Output: Urine 1177 Estimated Blood Loss 200 Other: # Voids 2 7 - Labs CBC & Chem 7: 08/06/23 05:50 08/06/23 05:50 Labs: Abnormal Lab Results - Last 24 Hours (Table) 08/05/23 08/05/23 08/06/23 Range/Units 17:00 19:56 05:50 WBC (4.50-10.00) X 10*3/uL RBC (4.40-5.60) X 10*6/uL Immature Gran # (0.00-0.04) X 10*3/uL Neutrophils # (1.80-7.70) X 10*3/uL Monocytes # (0.20-1.00) X 10*3/uL BUN/Creatinine Ratio (12.00-20.00) Ratio Glucose (70-110) mg/dL POC Glucose (mg/dL) 294 H 193 H (70-110) mg/dL Hemoglobin A1c 8.2 H (<=6.0) % 08/06/23 08/06/23 08/06/23 Range/Units 05:50 05:50 06:53 WBC 16.52 H (4.50-10.00) X 10*3/uL RBC 5.64 H (4.40-5.60) X 10*6/uL Immature Gran # 0.08 H (0.00-0.04) X 10*3/uL Neutrophils # 12.65 H (1.80-7.70) X 10*3/uL Monocytes # 1.36 H (0.20-1.00) X 10*3/uL BUN/Creatinine Ratio 20.33 H (12.00-20.00) Ratio Glucose 182 H (70-110) mg/dL POC Glucose (mg/dL) 161 H (70-110) mg/dL Hemoglobin A1c (<=6.0) % 08/06/23 08/06/23 Range/Units 11:13 16:33 WBC (4.50-10.00) X 10*3/uL RBC (4.40-5.60) X 10*6/uL Immature Gran # (0.00-0.04) X 10*3/uL Neutrophils # (1.80-7.70) X 10*3/uL Monocytes # (0.20-1.00) X 10*3/uL BUN/Creatinine Ratio (12.00-20.00) Ratio Glucose (70-110) mg/dL POC Glucose (mg/dL) 214 H 209 H (70-110) mg/dL Hemoglobin A1c (<=6.0) %
[2023-08-06 19:52] LABS: Glucose,Whole Blood 202 mg/dL (70-110)
[2023-08-06] MEDS: BENZONATATE 100 MG CAP PO SCH (21:39)
[2023-08-06] MEDS: ATORVASTATIN 20 MG TAB PO SCH (21:39)
[2023-08-07] MEDS: CYCLOBENZAPRINE 10 MG TAB PO PRN (00:29)
[2023-08-07] MEDS: ACETAMINOPHEN TAB 325 MG TAB PO SCH ×4 (00:29→17:24)
[2023-08-07] MEDS: HYDROmorphone 1 MG/ML 1 ML SYRINGE IVP PRN ×3 (00:30→17:26)
[2023-08-07 06:00] LABS: Glucose,Whole Blood 208 mg/dL (70-110)
[2023-08-07] MEDS: INSULIN ASPART (NovoLOG) 100 UNIT/ML VIAL SQ SCH ×6 (06:01→21:19)
[2023-08-07] MEDS: PANTOPRAZOLE 40 MG TABLET PO SCH (06:01)
[2023-08-07] MEDS: HYDROcodone/APAP 10-325MG 1 EACH TAB PO PRN ×3 (06:01→21:19)
[2023-08-07] MEDS: LACTATED RINGERS 1,000 ML IV SCH (06:04)
[2023-08-07 06:20] LABS: HCT 47.4 % (39.0-53.0); HGB 16.1 gm/dL (13.0-17.5); MCH 29.2 pg (25.0-35.0); MCV 86.1 fL (80.0-100.0); Mean Platelet Volume 8.2; Platelet Count 183 k/uL (150-450); RDW 13.6 % (11.5-15.5); WBC 15.6 k/uL (3.8-10.6)
[2023-08-07] MEDS: OXcarbazepine 300 MG TAB PO SCH ×2 (08:03→21:18)
[2023-08-07] MEDS: SENNOSIDES-DOCUSATE SODIUM 1 EACH TAB PO SCH (08:03)
[2023-08-07] MEDS: FAMOTIDINE 20 MG TAB PO SCH ×2 (08:04→21:19)
[2023-08-07] MEDS: amLODIPine 10 MG TAB PO SCH (08:04)
[2023-08-07] MEDS: LOSARTAN 50 MG TAB PO SCH (08:05)
[2023-08-07] MEDS: CYCLOBENZAPRINE 10 MG TAB PO SCH ×2 (08:05→21:19)
[2023-08-07] MEDS: PREGABALIN 75 MG CAP PO SCH ×3 (08:05→21:19)
[2023-08-07] MEDS: DAPAGLIFLOZIN PROPANEDIOL 5 MG TABLET PO SCH (08:05)
[2023-08-07] MEDS: PRAZOSIN 1 MG CAP PO SCH (08:05)
[2023-08-07] MEDS: atenoloL 25 MG TAB PO SCH (08:05)
[2023-08-07 11:31] LABS: Glucose,Whole Blood 223 mg/dL (70-110)
--- NOTE | 2023-08-07 13:01 | P.PN ---
Subjective Progress Note Date: 08/07/23 Patient is a 48-year-old male with diabetes, hypertension, dyslipidemia, moderate aortic stenosis, nonalcoholic fatty liver disease, PTSD and GERD who presented for elective posterior cervical decompression and fusion. Patient tolerated procedure well without any immediate postoperative complications. Patient seen and examined at bedside. He is still having significant amounts of pain in between his shoulder blades. present at bedside. We discussed that Claire is going to be starting him on steroids and his sugars will likely become more uncontrolled. She is very familiar with insulin regiment and helped her mother with dementia do insulin for years. She does feel comfortable going home on sliding scale insulin and had helped her mother with this for years. Vital signs reviewed General: Nontoxic, no distress, appears at stated age, hard cervical collar in place Cardiovascular: S1S2 reg, no murmur Lungs: CTA bilateral, no rhonchi, no rales, no accessory muscle use Abdominal: Soft, nontender to palpation, no guarding Ext: No gross muscle atrophy, no edema b/l lower extremities, no contractures Neuro: CN II-XI grossly intact, no focal neuro deficits Psych: Alert, oriented, appropriate affect Assessment/Plan: Patient is a 48 M s/p posterior cervical 5-7 decompression and fusion DM 2 - last dose of Mounjaro approx 10 days ago - add novolog 3 units TID with meals - Current plan for DC would be for patient to leave with SSI until he his no longer requiring steroids. He has tier 2 coverage for humalog kiwi pen. - SSI, Follow BS - Farxiga 5 mg daily - Pre-op A1C 7.1 , now A1C 8.2 Leukocytosis, reactive - repeat CBC in AM HTN - Follow BP, elevated post-op and likely pain mediated - Atenolol 25 mg daily, Norvasc 10 mg daily, losartan 100 mg daily - follow BP HLD -Lipitor 20 mg daily GERD - Protonix 40 mg PO daily NAFLD PTSD Imaging: None new reviewed Data Review: Today include CBC which is remarkable for white blood cell count of 15.6. Blood sugars reviewed with him max yesterday of 214. DVT prophylaxis: Per primary admitting service Thank you for allowing us to participate in the care of this pleasant patient. Do not hesitate to contact us with questions. Someone can be reached from the [facility] hospitalist group all hours of the day at [phone] or via perfect serve. This dictation was prepared using [employer] voice recognition software. Though every attempt is made to correct errors during dictation some may still exist. Objective - Vital Signs Vital signs: Vital Signs Temp 98.1 F 08/07/23 07:38 Pulse 100 08/07/23 07:38 Resp 19 08/07/23 07:38 BP 146/92 08/07/23 07:38 Pulse Ox 96 08/07/23 07:38 FiO2 Intake & Output 08/06/23 08/07/23 08/07/23 18:59 06:59 18:59 Other: # Voids 3 4 - Labs CBC & Chem 7: 08/07/23 05:50 08/06/23 05:50 Labs: Abnormal Lab Results - Last 24 Hours (Table) 08/06/23 08/06/23 08/07/23 Range/Units 16:33 19:49 05:50 WBC 15.6 H (3.8-10.6) k/uL POC Glucose (mg/dL) 209 H 202 H (70-110) mg/dL 08/07/23 08/07/23 Range/Units 05:58 11:30 WBC (3.8-10.6) k/uL POC Glucose (mg/dL) 208 H 223 H (70-110) mg/dL
--- NOTE | 2023-08-07 13:42 | P.PN ---
Subjective Progress Note Date: 08/07/23 Principal diagnosis: 1. 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 Left upper extremity radiculopathy/paresthesias 3. Left upper extremity weakness 4. Neck pain Patient seen and examined this morning. Patient is resting comfortably in bed. He continues to report increased muscle spasms. Informed pateint that I would speak with Dr. Gibson to see what else we can do to assist him. Surgical incision to the posterior cervical spine, edges are well-approximated with hudson intact. Hemovac drain has been removed, no measurable output from drain . Patient does report increased sensation of his left upper extremity since the procedure. Continue to encourage patient to be up in chair for all meals and to work with physical therapy today. Encourage use of incentive spirometer. No acute concerns at this time. Objective - Vital Signs Vital signs: Vital Signs Temp 98.1 F 08/07/23 07:38 Pulse 100 08/07/23 07:38 Resp 19 08/07/23 07:38 BP 146/92 08/07/23 07:38 Pulse Ox 96 08/07/23 07:38 FiO2 Intake & Output 08/06/23 08/07/23 08/07/23 18:59 06:59 18:59 Other: # Voids 3 4 - Exam Physical Examination General: The patient is awake and alert, in no acute distress Skin: Skin is warm and dry with no obvious rashes or lesions. Surgical incision to the posterior cervical spine, dressing presents with moderate sanguinous drainage, Hemovac is intact. Dressing will be changed later today. Eye: Pupils are equal, round and reactive to light, extra-ocular movements are intact; there is normal conjunctiva bilaterally. Neck: The neck is supple, there is no tenderness and ROM intact. Cardiovascular: There is a regular rate and rhythm. No murmur, rub or gallop is appreciated. Respiratory: Lungs are clear to auscultation, respirations are non-labored, breath sounds are equal. Gastrointestinal: Soft, non-distended, non-tender abdomen. Back: There is no tenderness to palpation in the midline, paralumbar, parathoracic or buttocks region. There is no obvious deformity . Musculoskeletal: ROM limited secondary to pain and stiffness from surgical procedure. Muscle strength in all major muscle groups of bilateral upper extremities 4/5, bilateral lower extremities 5/5. Neurological: CN 2-12 intact. There are no obvious motor or sensory deficits. Movement and coordination equal and intact. Sensory exam to light touch intact C5-T1 and intact from L2-S1. Reflexes 2/4 in bilateral upper and lower extremities. Negative Hoffmans, babinski, and clonus signs. Psychiatric: Cooperative, appropriate mood & affect, normal judgment. - Labs CBC & Chem 7: 08/07/23 05:50 08/06/23 05:50 Labs: Abnormal Lab Results - Last 24 Hours (Table) 08/06/23 08/06/23 08/06/23 Range/Units 05:50 11:13 16:33 WBC (3.8-10.6) k/uL BUN/Creatinine Ratio 20.33 H (12.00-20.00) Ratio Glucose 182 H (70-110) mg/dL POC Glucose (mg/dL) 214 H 209 H (70-110) mg/dL 08/06/23 08/07/23 08/07/23 Range/Units 19:49 05:50 05:58 WBC 15.6 H (3.8-10.6) k/uL BUN/Creatinine Ratio (12.00-20.00) Ratio Glucose (70-110) mg/dL POC Glucose (mg/dL) 202 H 208 H (70-110) mg/dL Assessment and Plan Assessment: Post Op Day 2: C5-C7 PCDF 1. 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 Left upper extremity radiculopathy/paresthesias 3. Left upper extremity weakness 4. Neck pain Plan: -Appreciate talent development consultant and team management. -Activity: Ambulate QID, OOB all meals, up and about, limit lifting bending twisting to less than 5 lbs. Use walker or cane if needed for stability. -Daily PT/OT, increase ambulation strength and balance. -[place] Cervical collar at all times. Patient may remove for showers. -Pain control: Adequate at this time -Meds: reviewed -GI ppx: senna, Miralax -DVT PPX: mechanical -Hygiene: Shower today. Maintain dressing clean and dry. -Encourage IS 10x/hr -Dispo: Anticipate discharge home today with homecare *I reviewed and discussed this case with my attending Dr. Gibson, whom has reviewed this chart and films and is in agreement with assessment and plan of care as outlined above. I have personally seen and examined the patient, performed the documentation and the assessment and plan as written. Number of minutes spent on the visit:15m.
[2023-08-07 16:55] LABS: Glucose,Whole Blood 252 mg/dL (70-110)
[2023-08-07 20:09] LABS: Glucose,Whole Blood 239 mg/dL (70-110)
[2023-08-07] MEDS: BENZONATATE 100 MG CAP PO SCH (21:19)
[2023-08-07] MEDS: ATORVASTATIN 20 MG TAB PO SCH (21:19)
[2023-08-08] MEDS: ACETAMINOPHEN TAB 325 MG TAB PO SCH ×3 (00:14→12:35)
[2023-08-08] MEDS: diazePAM 2 MG TAB PO PRN ×3 (00:14→15:04)
[2023-08-08] MEDS: HYDROcodone/APAP 10-325MG 1 EACH TAB PO PRN ×3 (03:40→15:04)
[2023-08-08] MEDS: CYCLOBENZAPRINE 10 MG TAB PO PRN (03:40)
[2023-08-08 06:03] LABS: Glucose,Whole Blood 188 mg/dL (70-110)
[2023-08-08] MEDS: LACTATED RINGERS 1,000 ML IV SCH (06:34)
[2023-08-08] MEDS: PANTOPRAZOLE 40 MG TABLET PO SCH (06:43)
[2023-08-08] MEDS: INSULIN ASPART (NovoLOG) 100 UNIT/ML VIAL SQ SCH ×4 (06:44→12:35)
--- NOTE | 2023-08-08 08:02 | P.PN ---
Subjective Progress Note Date: 08/08/23 Principal diagnosis: 1. 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 Left upper extremity radiculopathy/paresthesias 3. Left upper extremity weakness 4. Neck pain Patient seen and examined this morning. Patient is resting comfortably in bed. Surgical incision to the posterior cervical spine, dressing is CDI. Patient states he is feeling much better this morning and ready for discharge. Patient does report increased sensation of his left upper extremity since the procedure. Continue to encourage patient to be up in chair for all meals and encourage use of incentive spirometer. No acute concerns at this time. Objective - Vital Signs Vital signs: Vital Signs Temp 97.8 F 08/08/23 02:00 Pulse 102 H 08/08/23 02:00 Resp 20 08/07/23 20:00 BP 178/74 08/08/23 02:00 Pulse Ox 92 L 08/08/23 02:00 FiO2 Intake & Output 08/07/23 08/08/23 08/08/23 18:59 06:59 18:59 Other: # Voids 3 - Exam Physical Examination General: The patient is awake and alert, in no acute distress Skin: Skin is warm and dry with no obvious rashes or lesions. Surgical incision to the posterior cervical spine, dressing CDI. Eye: Pupils are equal, round and reactive to light, extra-ocular movements are intact; there is normal conjunctiva bilaterally. Neck: The neck is supple, there is no tenderness and ROM intact. Cardiovascular: There is a regular rate and rhythm. No murmur, rub or gallop is appreciated. Respiratory: Lungs are clear to auscultation, respirations are non-labored, breath sounds are equal. Gastrointestinal: Soft, non-distended, non-tender abdomen. Back: There is no tenderness to palpation in the midline, paralumbar, parathoracic or buttocks region. There is no obvious deformity . Musculoskeletal: ROM limited secondary to pain and stiffness from surgical procedure. Muscle strength in all major muscle groups of bilateral upper extremities 4/5, bilateral lower extremities 5/5. Neurological: CN 2-12 intact. There are no obvious motor or sensory deficits. Movement and coordination equal and intact. Sensory exam to light touch intact C5-T1 and intact from L2-S1. Reflexes 2/4 in bilateral upper and lower extremities. Negative Hoffmans, babinski, and clonus signs. Psychiatric: Cooperative, appropriate mood & affect, normal judgment. - Labs CBC & Chem 7: 08/07/23 05:50 08/06/23 05:50 Labs: Abnormal Lab Results - Last 24 Hours (Table) 08/07/23 08/07/23 08/07/23 Range/Units 11:30 16:54 19:59 POC Glucose (mg/dL) 223 H 252 H 239 H (70-110) mg/dL 08/08/23 Range/Units 05:55 POC Glucose (mg/dL) 188 H (70-110) mg/dL Assessment and Plan Assessment: Post Op Day 3: C5-C7 PCDF 1. 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 Left upper extremity radiculopathy/paresthesias 3. Left upper extremity weakness 4. Neck pain Plan: -Appreciate agriculture consultant and team management. -Activity: Ambulate QID, OOB all meals, up and about, limit lifting bending twisting to less than 5 lbs. Use walker or cane if needed for stability. -Daily PT/OT, increase ambulation strength and balance. -[place] Cervical collar at all times. Patient may remove for showers. -Pain control: Adequate at this time -Meds: reviewed -GI ppx: senna, Miralax -DVT PPX: mechanical -Hygiene: Maintain dressing clean and dry, please change dressing prior to discharge. -Encourage IS 10x/hr -Dispo: Discharge home today with homecare *I reviewed and discussed this case with my attending Dr. Gibson, whom has reviewed this chart and films and is in agreement with assessment and plan of care as outlined above. I have personally seen and examined the patient, performed the documentation and the assessment and plan as written. Number of minutes spent on the visit: 15m.
--- NOTE | 2023-08-08 08:04 | P.DS ---
Providers Date of admission: 08/05/23 05:33 Expected date of discharge: 08/08/23 Attending physician: Nicho Gibson DO Consults: 08/05/23 10:36 Consult Physician Routine Consulting Provider: Angeli Tinsley Consult Reason/Comments: medical management s/p c5-c7 post cervical decompr fusion Do you want consulting provider notified?: Yes Primary care physician: [facility] Course: Hospital Course: The patient was evaluated preoperatively and found to have the diagnosis of Cervical stenosis They underwent appropriate preoperative care and were willing to undergo the intended procedure. They underwent a successful C5-C7 PCDF were recovered appropriately and sent to the floor. While on the floor they worked with physical therapy, occupational therapy and nursing to enhance their recovery experience. Their pain was well controlled through their stay and they were started on appropriate medications, DVT ppx modalities, activity and dietary needs. Daily labs were monitored closely, and transfusions were only used when necessary. Medicine as well as other consulting services have made their input and have helped with our team approach and multidisciplinary care. PT milestones have been met and passed and they have made the recommendation of home with home care for this patient and treating providers agree with this care path. The patient will be discharged home with appropriate medications, instructions and follow-up information and in stable condition. Patient Condition at Discharge: Good Plan - Discharge Summary Discharge Rx Participant: Yes New Discharge Prescriptions: New diazePAM [Valium] 2 mg PO TID PRN 3 Days #9 tab PRN Reason: Muscle Spasm cefaDROXiL [Duricef] 500 mg PO Q12HR #10 cap Cyclobenzaprine [Flexeril] 10 mg PO TID #60 tab Pregabalin [Lyrica] 150 mg PO BID #60 cap HYDROcodone/APAP 10-325MG [[place] 10-325] 1 tab PO Q4-6H PRN #42 tab PRN Reason: Pain Sennosides/Docusate Sodium [Senna Plus 8.6-50 mg Tablet] 1 each PO DAILY PRN #20 tablet PRN Reason: Constipation No Action atenoloL 25 mg PO QAM OXcarbazepine [Trileptal] 900 mg PO BID amLODIPine [Norvasc] 10 mg PO QAM Celecoxib [CeleBREX] 200 mg PO BID Prazosin(Unk) 1 mg PO DAILY Benzonatate [Tessalon Perle] 200 mg PO HS Losartan Potassium [Cozaar] 100 mg PO QAM Omeprazole 40 mg PO QAM Empagliflozin [Jardiance] 10 mg PO DAILY Cyclobenzaprine [Flexeril] 10 mg PO BID Pregabalin [Lyrica] 150 mg PO BID Rosuvastatin [Crestor] 10 mg PO HS Mounjaro 1 Mg 1 dose SQ TH Ziprasidone(Unk) 20 mg PO BID Famotidine 20 mg PO BID Discharge Medication List Losartan Potassium [Cozaar] 100 mg PO QAM 10/13/20 [History] OXcarbazepine [Trileptal] 900 mg PO BID 10/13/20 [History] Omeprazole 40 mg PO QAM 10/13/20 [History] amLODIPine [Norvasc] 10 mg PO QAM 10/13/20 [History] atenoloL 25 mg PO QAM 10/13/20 [History] Empagliflozin [Jardiance] 10 mg PO DAILY 07/14/21 [History] Celecoxib [CeleBREX] 200 mg PO BID 04/17/23 [History] Cyclobenzaprine [Flexeril] 10 mg PO BID 04/17/23 [History] Mounjaro 1 Mg 1 dose SQ TH 04/17/23 [History] Pregabalin [Lyrica] 150 mg PO BID 04/17/23 [History] Rosuvastatin [Crestor] 10 mg PO HS 04/17/23 [History] Benzonatate [Tessalon Perle] 200 mg PO HS 07/30/23 [History] Famotidine 20 mg PO BID 07/30/23 [History] Prazosin(Unk) 1 mg PO DAILY 07/30/23 [History] Ziprasidone(Unk) 20 mg PO BID 07/30/23 [History] Cyclobenzaprine [Flexeril] 10 mg PO TID #60 tab 08/07/23 [Rx] HYDROcodone/APAP 10-325MG [[place] 10-325] 1 tab PO Q4-6H PRN #42 tab 08/07/23 [Rx] Pregabalin [Lyrica] 150 mg PO BID #60 cap 08/07/23 [Rx] Sennosides/Docusate Sodium [Senna Plus 8.6-50 mg Tablet] 1 each PO DAILY PRN #20 tablet 08/07/23 [Rx] cefaDROXiL [Duricef] 500 mg PO Q12HR #10 cap 08/07/23 [Rx] diazePAM [Valium] 2 mg PO TID PRN 3 Days #9 tab 08/07/23 [Rx] Follow up Appointment(s)/Referral(s): Nicho Gibson DO [Doctor of Osteopathic Medicine] - 08/21/23 9:30 am Activity/Diet/Wound Care/Special Instructions: Spine Discharge and Recovery Instructions Date of Surgery: 08/05/2023 Diagnosis: cervical spondylosis Procedure: C5-C7 PCDF Medications: See medication list All medication refills should be obtained through your primary care doctor or your clinic spine surgeon. Please discuss prescription refills at your follow up appointment. Do not call the hospital for medication refills. Activity: Encourage ambulation with assist of walker, Up and about 6-8x daily PT/OT daily work on balance, strength and mobility Up in chair with all meals Shower daily Brace: Use brace when up and about, do not wear in bed or shower Dressing: Leave your dressing in place for a total of 3 days post operatively. Then you may remove your dressing and leave open to air. Keep the area clean and if not able to keep area clean, then cover with sterile gauze and tape. Showering: You may shower 3 days after your procedure allowing soap and water to run over incision. Do not scrub. Do not soak. Blot dry. Follow up: Please confirm a follow up appointment with your surgeon 2 weeks post operatively. Please make an appointment to follow up with your PCP in 1-2 weeks after surgery for evaluation `3 phase, 3-week plan POST OP WEEKS 1-3 1. Lifting/carrying/pushing/pulling limited to less than 5 pounds. 2. Do not sit for longer than 15 minutes at one time. Get up and walk around. Prolonged sitting is NOT advised. If you lay down, see if you can tolerate laying down on you front (belly side) 3. Walk for periods of 15 minutes = 1 mile but no longer; do it multiple times times each day. 4. Ice your low back after activity. POST OP WEEKS 3-6 1. Lifting limited to less than 20 pounds. 2. Do not sit for longer than 30 minutes at a time. Frequently change positions. Use a sit-to stand workstation or take frequent breaks from sitting if you have returned to work. 3. Walk for 30 minutes each day. If possible, do these three or more times a day POST OP WEEKS 6+ At your 6-week appointment we will give you a physical therapy referral to focus on a core stabilization and strengthening program. You should also work on leg & buttock strengthening, hamstring & quadriceps stretching, and continue a low impact aerobic activity program such as swimming, walking, or riding a stationary bicycle. During the initial 6 weeks after your surgery, you are at the highest risk of re-injuring your spine. You should generally avoid BLTs (bending, lifting and twisting combination motions) and follow the above guidelines to reduce the chance of reinjury. You can anticipate post op appointments in our office at approximately 3 weeks and 6 weeks after your surgery. INCISION CARE: If your incision is not draining you do NOT need to cover it with a dressing. Keep your incision clean, dry and intact. In most cases, we apply skin glue, hudson or sutures to the incision at the time of surgery. This will be like a crust or have the appearance of a scab and will fall off in time on its own. The stitches or hudson need to be removed at 3 weeks post op appointment. You may begin to shower 3 days after surgery (this allows the glue to quan well). However, please avoid scrubbing the incision site or peeling off any of the skin glue. This will ensure optimal healing of your incision. Also, during this time avoid soaking the incision area in water - this includes swimming pools, hot tubs or baths. No ointments, lotions or oils on the incision until your surgeon allows. Leave hudson, sutures or glue in place. Neurological dysfunction that comes on suddenly can also be a sign of a stroke. Below some common symptoms of a stroke are listed: B - balance difficulty such as sudden onset walking or leaning to one side - NEW E - eye problem such as sudden double vision or trouble seeing on one side - NEW F - Facial weakness or numbness on one side - NEW A - Arm or leg weakness or numbness on one side - NEW S - Slurred speech or difficulty with word finding - NEW T - Time is BRAIN! Call 911 as soon as you recognize these symptoms Diet: Consume a regular diet rich in vegetables and lean protein such as chicken or fish. You should consume in a ratio of approximately 20% fats|40% carbohydrates|40%protein. Vegetables, sweet potatoes, brown rice or quinoa are examples of good carbohydrates. Chips, white bread, cookies and sweets/sugar are examples of bad carbohydrates. Limit your bad carbs, go wild with good carbs. "Life's Simple 7" Guidelines as per [place] [employer] These will help you reclaim your life after surgery and terrazzo finisher helper in your recovery, keeping in mind your restrictions. (1) Get Active. Physical activity can help people lose weight, control high blood pressure and cholesterol, feel emotionally better, and sleep better. (2) Control Cholesterol. Avoid a diet high in saturated fat, trans fat, & cholesterol. Limit whole milk & cream, ice cream, butter, egg yolks, processed meats (like sausage and hot dogs), and fatty meats. Choose healthy foods that are low in saturated fat, trans fat and cholesterol which include: Fruits and vegetables, fiber rich grain products (like whole grain pasta and brown rice), lean meat such as chicken, fish, nuts, seeds, and legumes. (3) Eat Better. Eat small portions. Shop at the grocery with a list and do not stray from it. Tips for a healthy diet include: Limit sodium intake to less than 1500mg daily, avoid prepackaged, processed, and fast foods, choose a diet rich in fruits, vegetables, and whole grain, high fiber foods, and limit saturated & cholesterol in your diet. (4) Manage Blood Pressure. If you have high blood pressure, you should have a cuff at home so that you can check your blood pressure regularly. Be sure you have a good cuff. An arm one is generally better than a wrist one. Bring the cuff to a doctor's appointment to validate that the measurements that your cuff are taking are accurate. Take your blood pressure twice daily when you are sitting down and relaxing. Record the numbers in a log and bring this log with you to your doctors' appointments. (5) Lose Weight if your BMI is above 25. A healthy BMI is between 19-25. To calculate Your BMI, you may use a Standard BMI Calculator on the NIH BMI website: <www.nhlbi.nih.gov/guidelines/obesity/BMI/bmicalc.htm>. Weigh oneself daily. If you are overweight, set a goal to lose weight. A pound a week loss if needed is a good target. (6) Reduce Blood Sugar. Limit foods and liquids with "added sugars." (Added sugars include sucrose, fructose, glucose, maltose, dextrose, high fructose corn syrup, corn syrup, concentrated fruit juice and honey). (7) Stop Smoking. If you smoke, quitting smoking is one of the best things that you can do for your health. Smoking increases your risk of heart attack, stroke, and peripheral vascular disease, which is a build-up of plaque in your arteries. Please discard all the cigarettes and lighters in your house. Have a plan for what you will do when you have the urge to smoke. Direct and second- hand smoke shortens your life as well as the lives of your family, friends and others around you. For your health and the health of those around you, please consider quitting! Proper Bending Body Mechanics: Maintain a wide stance with one foot slightly in front of the other. Keep your back straight. Bend utilizing the strength in your hips and knees. Do not bend at the waist. Maintain the lifted object at your waist-level close to your body. Avoid lifting weight that causes immediately pain or pain anywhere in the body afterwards. Smoking/Nicotine If there was ever one thing that you could do to increase your overall health, decrease your risk of cardiovascular problems by about 39% the second you make the choice, it is to STOP SMOKING. Your body's most instant gratification is the second you stop smoking. We have all heard the studies, read the articles but it is true, smoking is extremely bad for your overall health, and moreover it is detrimental to your bone health. Nicotine, IN ANY FORM, kills bone cells, prevents your body from healing fractures, and significantly prolongs healing after surgery. In spine surgery specifically, it increases your risk of not healing your bones to create a fusion and increases your risk of having a revision surgery due to this up to 60%. I know it is hard. I know it feels impossible. But there are ways. Take control of your life. We are here to help you through it. And when you are ready, ask us and we can direct you to help if you desire. Use the START Plan to Quit Smoking (please visit the Helpguide.org website listed below for more information): S = Set a quit date. Choose a date within the next 2 weeks, so you have enough time to prepare without losing your motivation to quit. If you mainly smoke at work, quit on the weekend, so you have a few days to adjust to the change. T = Tell family, friends, and co-workers that you plan to quit. Let your friends and family in on your plan to quit smoking and tell them you need their support and encouragement to stop. Look for a quit alfonso who wants to stop smoking as well. You can help each other get through the rough times. A = Anticipate and plan for the challenges you'll face while quitting. Most people who begin smoking again do so within the first 3 months. You can help yourself make it through by preparing ahead for common challenges, such as nicotine withdrawal and cigarette cravings. R = Remove cigarettes and other tobacco products from your home, car, and work. Throw away all your cigarettes (no emergency pack!), lighters, ashtrays, and matches. Wash your clothes and freshen up anything that smells like smoke. Shampoo your car, clean your drapes and carpet, and steam your furniture. T = Talk to your doctor about getting help to quit. Your doctor can prescribe medication to help with withdrawal and suggest other alternatives. If you can't see a doctor, you can get many products over the counter at your local pharmacy or grocery store, including the nicotine patch, nicotine lozenges, and nicotine gum. Resources for Quitting Smoking: <https://www.[place].gov/documents/[facility]/Quit_Tobacco_Resources_for_patients_313 480_7.pdf> Supplementation: Take recommended dosages of Vitamin D and Calcium to help fortify your bones and help them to heal. See your health maintenance packet for dosages and recommended levels. DVT/VTE prophylaxis: You will be given compression stockings from the hospital. Wear these daily for the first two weeks after surgery. You may take them off at night. You may be prescribed a medication to help thin your blood. Take this as directed. If you are not prescribed this medication, early and frequent ambulation has been shown to be the best prophylaxis to deep vein thrombosis and sequelae related to this event. Discharge Disposition: HOME WITH HOME HEALTH SERVICES
[2023-08-08] MEDS: amLODIPine 10 MG TAB PO SCH (08:07)
[2023-08-08] MEDS: SENNOSIDES-DOCUSATE SODIUM 1 EACH TAB PO SCH (08:07)
[2023-08-08] MEDS: FAMOTIDINE 20 MG TAB PO SCH (08:07)
[2023-08-08] MEDS: PREGABALIN 75 MG CAP PO SCH (08:07)
[2023-08-08] MEDS: CYCLOBENZAPRINE 10 MG TAB PO SCH (08:08)
[2023-08-08] MEDS: atenoloL 25 MG TAB PO SCH (08:08)
[2023-08-08] MEDS: LOSARTAN 50 MG TAB PO SCH (08:08)
[2023-08-08] MEDS: DAPAGLIFLOZIN PROPANEDIOL 5 MG TABLET PO SCH (08:09)
[2023-08-08] MEDS: OXcarbazepine 300 MG TAB PO SCH (08:09)
[2023-08-08] MEDS: PRAZOSIN 1 MG CAP PO SCH (08:09)
[2023-08-08 08:56] VITALS: BP 154/84; PULSE 98; RESP 19; TEMP 98.1
[2023-08-08 11:31] LABS: Glucose,Whole Blood 160 mg/dL (70-110)
--- NOTE | 2023-08-08 13:14 | P.PN ---
Subjective Progress Note Date: 08/08/23 Patient is a 48-year-old male with diabetes, hypertension, dyslipidemia, moderate aortic stenosis, nonalcoholic fatty liver disease, PTSD and GERD who presented for elective posterior cervical decompression and fusion. Patient tolerated procedure well without any immediate postoperative complications. 08/08 Patient was seen and examined. He is having 10/10 spastic pain in his neck relieved by laying down. He has been borderline hypoxic high 80s-low 90s during this hospitalization. is aware of his hypoxia stating that he normally around that range at home. He has had a sleep study in the past and is in the process of obtaining a CPAP. Vital signs reviewed General: Nontoxic, no distress, appears at stated age, hard cervical collar in place Cardiovascular: S1S2 reg, no murmur Lungs: CTA bilateral, no rhonchi, no rales, no accessory muscle use Abdominal: Soft, nontender to palpation, no guarding Ext: No gross muscle atrophy, no edema b/l lower extremities, no contractures Neuro: no focal neuro deficits Psych: Alert, oriented, appropriate affect Hypoxia likely due to JAMES - reports this is normal for the patient and he is in the process of obtaining a CPAP DM 2 - last dose of Mounjaro approx 10 days ago - Novolog 3 units TID with meals - Current plan for DC would be for patient to leave with SSI until he his no longer requiring steroids. He has tier 2 coverage for humalog kiwi pen. - SSI, Follow BS - Farxiga 5 mg daily - Pre-op A1C 7.1 , now A1C 8.2 Leukocytosis, reactive HTN - Follow BP, elevated post-op and likely pain mediated - Atenolol 25 mg daily, Norvasc 10 mg daily, losartan 100 mg daily - follow BP HLD -Lipitor 20 mg daily GERD - Protonix 40 mg PO daily NAFLD PTSD Objective - Vital Signs Vital signs: Vital Signs Temp 98.1 F 08/08/23 08:00 Pulse 98 08/08/23 08:00 Resp 19 08/08/23 08:00 BP 154/84 08/08/23 08:00 Pulse Ox 91 L 08/08/23 08:00 FiO2 Intake & Output 08/07/23 08/08/23 08/08/23 18:59 06:59 18:59 Other: # Voids 3 - Labs CBC & Chem 7: 08/07/23 05:50 01/30/24 05:50 Labs: Abnormal Lab Results - Last 24 Hours (Table) 08/07/23 08/07/23 08/08/23 Range/Units 16:54 19:59 05:55 POC Glucose (mg/dL) 252 H 239 H 188 H (70-110) mg/dL 08/08/23 Range/Units 11:29 POC Glucose (mg/dL) 160 H (70-110) mg/dL
--- NOTE | 2023-08-12 16:51 | CDI ---
Documentation Clarification Form Date: 08/12/2023 04:40:21 PM From: Kati Sabillon Phone: Admit Date: 08/05/2023 05:33:00 AM Patient Name: Stefany Villavicencio Visit Number: [id number] Discharge Date: 08/08/2023 03:39:00 PM ATTENTION: The Clinical Documentation Specialists (CDI) and [facility] Coding Staff appreciate your assistance in clarifying documentation. Please respond to the clarification below the line at the bottom and electronically sign. The CDI & [facility] Coding staff will review the response and follow-up if needed. Please note: Queries are made part of the Legal Health Record. If you have any questions, please contact the author of this message via ITS. Dr. Nicho Gibson There is documentation of high BMI >40 per OP Note. Additional clarification is requested. History/Risk Factors: 48yo M, other cervical spondylosis with radiculopathy & stenosis, nonalcoholic fatty liver, DMII, HTN, HLD, , JAMES Clinical Indicators: BMI 40.31 Treatment: CPTMOD 22 This case took 75% longer than expected due to comorbid conditions, high BMI >40, extent of cervical dz and high technicality of the case Please clarify if patients BMI indicates an additional diagnosis: [ ] Overweight [ ] Morbid (Extreme) (severe) obesity [ ] Other, please specify [ ] Unable to determine (Template Last Revised: September 2020) Morbid (Extreme) (severe) obesity MTDD
== END 2023-08-08 15:39 | disposition home health service (06) | DRG 321 ==
LOC: 2ORMAIN 05:33 → 4SSUR 12:00
PROVIDERS: ADMIT Orthopaedic Surgery; ATTEND Orthopaedic Surgery
PROC: 01N10ZZ Release Cervical Nerve, Open Approach (ICD-10-PCS; 2023-08-05)
PROC: 0RG2071 Fusion of 2 or more Cervical Vertebral Joints with Autologous Tissue Substitute, Posterior Approach, Posterior Column, Open Approach (ICD-10-PCS; principal; 2023-08-05 07:30)
DX: M47.22 Other spondylosis with radiculopathy, cervical region (principal); K76.0 Fatty (change of) liver, not elsewhere classified; Z68.41 Body mass index [BMI] 40.0-44.9, adult; E66.01 Morbid (severe) obesity due to excess calories; E11.9 Type 2 diabetes mellitus without complications; I10 Essential (primary) hypertension; I35.0 Nonrheumatic aortic (valve) stenosis; E78.5 Hyperlipidemia, unspecified; D72.828 Other elevated white blood cell count; F43.10 Post-traumatic stress disorder, unspecified; M48.02 Spinal stenosis, cervical region; K21.9 Gastro-esophageal reflux disease without esophagitis; R09.02 Hypoxemia; G47.33 Obstructive sleep apnea (adult) (pediatric); Z98.1 Arthrodesis status; Z79.899 Other long term (current) drug therapy; Z79.84 Long term (current) use of oral hypoglycemic drugs; Z79.1 Long term (current) use of non-steroidal anti-inflammatories (NSAID); Z79.85 Long-term (current) use of injectable non-insulin antidiabetic drugs; Z88.6 Allergy status to analgesic agent
CPT/HCPCS: 72040; 72125; 80048; 83036; 85025; 85027; 86850; 86900; 86901